=== PATIENT | female | born 1960 | race Caucasian/White ===

== ENCOUNTER 2016-07-19 16:24 | Outpatient (CLI) | END 2016-07-19 16:25 | disposition home or self-care (01) ==

== ENCOUNTER 2016-08-05 09:12 | Outpatient (CLI) | payer OTHER, MEDICAID | END 2016-08-05 09:13 | disposition home or self-care (01) | DX: Z80.3 Family history of malignant neoplasm of breast (principal); Z90.710 Acquired absence of both cervix and uterus ==

== ENCOUNTER 2016-08-15 09:44 | Outpatient (CLI) | payer OTHER, MEDICAID | END 2016-08-15 09:45 | disposition home or self-care (01) | DX: Z01.818 Encounter for other preprocedural examination (principal); N39.3 Stress incontinence (female) (male); N81.11 Cystocele, midline ==

== ENCOUNTER 2016-08-17 08:00 | Day surgery (SDC) | payer OTHER, MEDICAID ==
[2016-08-17] MEDS ORDERED: ceFAZolin 2 GM/50 ML 50 ML IV ONE (08:04)
[2016-08-17] MEDS ORDERED: LACTATED RINGERS 1,000 ML IV ONE ×2 (09:01→15:16)
[2016-08-17] MEDS ORDERED: KETAMINE 500 MG/10 ML VIAL IVP ONE (14:10)
[2016-08-17] MEDS ORDERED: LIDOCAINE-MPF 2% 5 ML VIAL IM ONE (14:10)
[2016-08-17] MEDS ORDERED: ONDANSETRON 4 MG/2 ML VIAL IVP ONE (14:10)
[2016-08-17] MEDS ORDERED: PROPOFOL 200 MG/20 ML VIAL IVP ONE (14:10)
[2016-08-17] MEDS ORDERED: DEXAMETHASONE 4 MG/ML VIAL IVP ONE (14:10)
[2016-08-17] MEDS ORDERED: ePHEDrine 50 MG/ML AMP IVP ONE (14:10)
[2016-08-17] MEDS ORDERED: ALBUTEROL 6.7 GM INHALER INH ONE (14:10)
[2016-08-17] MEDS ORDERED: fentaNYL 100 MCG/2 ML VIAL IVP ONE (14:10)
[2016-08-17] MEDS ORDERED: KETOROLAC 30 MG/ML VIAL IVP ONE (14:10)
[2016-08-17] MEDS ORDERED: BUPIVACAINE 0.25%-EPI 1:200000 PF 30 ML VIAL SUBQ ONE ×2 (14:20)
[2016-08-17] MEDS ORDERED: ACETAMINOPHEN 1,000 MG/100 ML 100 ML IV ONE (15:27)
[2016-08-17] MEDS: fentaNYL 100 MCG/2 ML VIAL ONE ×2 (15:40→15:55)
[2016-08-17] MEDS ORDERED: oxyCOD/ACETAMIN 5 MG/325 MG TABLET PO ONE (16:17)
== END 2016-08-17 08:01 | disposition home or self-care (01) ==
PROC: 0JQC0ZZ Repair Pelvic Region Subcutaneous Tissue and Fascia, Open Approach (ICD-10-PCS; principal; 2016-08-17 09:00)
DX: N39.3 Stress incontinence (female) (male) (principal); N81.11 Cystocele, midline; N81.5 Vaginal enterocele; Z78.0 Asymptomatic menopausal state; F17.210 Nicotine dependence, cigarettes, uncomplicated
CPT/HCPCS: 57240; A9270; J0131; J0690; J7120; J7613

== ENCOUNTER 2016-09-11 | Emergency (ER) | payer OTHER, MEDICAID | END 2016-09-12 00:17 | disposition home or self-care (01) ==

== ENCOUNTER 2016-09-11 | Outpatient (CLI) | payer OTHER, MEDICAID | END 2016-09-11 23:19 | disposition critical access hospital (66) | CPT/HCPCS: A0425; A0429 ==

== ENCOUNTER 2016-09-12 | Outpatient (CLI) | payer OTHER, MEDICAID | END 2016-09-12 14:21 | disposition critical access hospital (66) | DX: Z72.89 Other problems related to lifestyle (principal) | CPT/HCPCS: A0425; A0427 ==

== ENCOUNTER 2016-09-12 14:27 | Emergency (ER) | payer OTHER, MEDICAID ==
[2016-09-12] MEDS ORDERED: diazePAM 5 MG TABLET PO ONE (21:25)
[2016-09-12] MEDS: diazePAM 5 MG TABLET PO PRN (21:28)
[2016-09-13] MEDS ORDERED: ESCITALOPRAM 10 MG TABLET PO STA (01:33)
[2016-09-13] MEDS ORDERED: DIVALPROEX DR 125 MG TABLET PO STA (01:33)
[2016-09-13] MEDS ORDERED: diazePAM 5 MG TABLET PO ONE ×3 (01:35→11:17)
[2016-09-13] MEDS: diazePAM 5 MG TABLET PO PRN ×2 (01:38→08:17)
[2016-09-13] MEDS ORDERED: ACETAMINOPHEN 500 MG TABLET PO STA (07:27)
[2016-09-13] MEDS ORDERED: ACETAMINOPHEN 500 MG TABLET PO ONE (07:49)
[2016-09-13] MEDS ORDERED: FOLIC ACID INJ 1 MG, THIAMINE INJ 100 MG, MAGNESIUM SULFATE 2 GM, MULTIVITAMIN 10 ML in... IV STA ×10 (09:48→10:00)
[2016-09-13] MEDS ORDERED: diazePAM 5 MG TABLET PO STA (11:17)
== END 2016-09-13 11:30 ==
DX: F10.129 Alcohol abuse with intoxication, unspecified (principal); R45.851 Suicidal ideations; F17.200 Nicotine dependence, unspecified, uncomplicated; Y90.8 Blood alcohol level of 240 mg/100 ml or more; R03.0 Elevated blood-pressure reading, without diagnosis of hypertension
CPT/HCPCS: 36415; 80053; 80306; 80320; 81001; 83690; 85025; 96374; 99284; 99285; A9270; J3411

== ENCOUNTER 2016-10-26 15:50 | Emergency (ER) | payer OTHER, MEDICAID ==
[2016-10-26] MEDS ORDERED: ACETAMINOPHEN 325 MG TABLET PO STA (16:53)
[2016-10-26] MEDS ORDERED: ACETAMINOPHEN 325 MG TABLET PO ONE (16:56)
== END 2016-10-26 18:02 | disposition home or self-care (01) ==
DX: S46.912A Strain of unspecified muscle, fascia and tendon at shoulder and upper arm level, left arm, initial encounter (principal); W01.0XXA Fall on same level from slipping, tripping and stumbling without subsequent striking against object, initial encounter; Y92.89 Other specified places as the place of occurrence of the external cause; Y99.0 Civilian activity done for income or pay; E03.9 Hypothyroidism, unspecified; F17.200 Nicotine dependence, unspecified, uncomplicated
CPT/HCPCS: 73060; 99283; A9270

== ENCOUNTER 2016-12-07 17:34 | Emergency (ER) | payer OTHER, MEDICAID ==
[2016-12-07] MEDS ORDERED: LOPERAMIDE 2 MG CAPSULE PO STA (18:05)
[2016-12-07] MEDS ORDERED: SODIUM CHLORIDE 0.9% 1,000 ML IV ONE (18:05)
[2016-12-07] MEDS ORDERED: ONDANSETRON 4 MG/2 ML VIAL IVP STA (18:05)
--- NOTE | 2016-12-07 18:06 | ED Physician Documentation ---
History of Present Illness - Stated complaint Stated Complaint: FLU LIKE SYMPTOMS - Chief complaint Chief Complaint: General - History obtained from History obtained from: Patient - History of Present Illness Timing: Other (2 days of nausea, vomiting, diarrhea. Some body aches but no fevers or chills. No focal abdominal pain but feels "sick" she has a gastric bypass in the past.) Review of Systems Constitutional: reports: Myalgias, Fatigue. denies: Fever, Chills Nose: denies: Rhinorrhea / runny nose, Congestion Cardiac: denies: Chest pain / pressure, Palpitations Respiratory: denies: Dyspnea, Cough PD PAST MEDICAL HISTORY - Past Medical History Cardiovascular: None Respiratory: None Neuro: None Endocrine/Autoimmune: HyPOthyroidism GI: None BLENDING COORDINATOR: None : None HEENT: None Psych: Other Musculoskeletal: None Derm: None - Past Surgical History Past Surgical History: Yes General: Other Ortho: Other /BLENDING COORDINATOR: Hysterectomy, Breast reduction HEENT: Tonsil/Adenoidectomy - Present Medications Home Medications: Ambulatory Orders Medication Instructions Recorded Confirmed Divalproex Sodium [Depakote] 750 mg PO BID 11/20/15 08/17/16 Escitalopram [Lexapro] 10 mg PO DAILY 11/20/15 08/17/16 Levothyroxine [Synthroid] 175 mcg PO DAILY 11/20/15 08/17/16 Gabapentin 300 mg PO BID 03/30/16 08/17/16 Ziprasidone HCl [Geodon] 40 mg PO BID 03/30/16 08/17/16 Naltrexone HCl 50 mg PO DAILY 08/15/16 08/17/16 Lorazepam [Ativan] 1 mg PO Q8H PRN #12 tablet 09/12/16 Ondansetron Odt [Zofran] 4 mg TL Q6H PRN #15 tablet 09/12/16 HYDROcod/ACETAM 5/325 [[place] 5/325] 1 - 2 ea PO Q6H PRN #15 tablet 10/26/16 Loperamide [Imodium] 2 mg PO QID PRN #10 capsule 12/07/16 Lorazepam [Ativan] 1 mg PO TID PRN #15 tablet 12/07/16 Ondansetron HCl [Zofran] 4 mg PO Q6H PRN #10 tablet 12/07/16 - Allergies Allergies/Adverse Reactions: Allergies Allergy/AdvReac Type Severity Reaction Status Date / Time No Known Drug Allergies Allergy Verified 09/12/16 14:36 - Social History Does the pt smoke?: Yes Smoking Status: Current every day smoker Does the pt drink ETOH?: Yes Does the pt have substance abuse?: No - Immunizations Immunizations are current?: Yes - POLST Patient has POLST: No PD ED PE NORMAL - Vitals Vital signs reviewed: Yes - General General: Alert and oriented X 3, No acute distress - HEENT HEENT: PERRL, Other (dry mucous membranes) - Cardiac Cardiac: RRR, No murmur - Respiratory Respiratory: No respiratory distress, Clear bilaterally - Abdomen Abdomen: Soft, Non tender - Neuro Neuro: Alert and oriented X 3, Normal speech - Psych Psych: Normal mood, Normal affect Results - Vitals Vitals: Vital Signs - 24 hr 12/07/16 12/07/16 17:48 19:07 Temperature 36.1 C L 36.0 C L Heart Rate 90 78 Respiratory 16 15 Rate Blood Pressure 129/83 H 108/59 L O2 Saturation 94 95 Oxygen O2 Source Room air - Labs Labs: Laboratory Tests 12/07/16 12/07/16 12/07/16 18:15 18:15 18:15 Sodium 137 Potassium 4.2 Chloride 95 L Carbon Dioxide 25 Anion Gap 17.0 H BUN 9 Creatinine 0.6 Estimated GFR (MDRD) 103 Glucose 107 H Calcium 8.9 Total Bilirubin 0.4 AST 120 H ALT 86 H Alkaline Phosphatase 108 Total Protein 7.7 Albumin 4.0 Globulin 3.7 Albumin/Globulin Ratio 1.1 Lipase 25 Last Dose Date UNK Last Dose Time UNK Valproic Acid 10.6 Ethyl Alcohol 257.9 PD MEDICAL DECISION MAKING - ED course ED course: 48-year-old woman with what sounds like gastroenteritis, noted to have elevated liver enzymes and found to be significantly intoxicated as well without clinical evidence of intoxication. Counseled at length to quit drinking. Departure - Departure Disposition: 01 Home, Self Care Clinical Impression: Gastroenteritis Alcoholic intoxication Qualifiers: Complication of substance-induced condition: uncomplicated Qualified Code(s): F10.120 - Alcohol abuse with intoxication, uncomplicated Condition: Good Record reviewed to determine appropriate education?: Yes Instructions: ED Alcohol Intoxication, ED Gastroenteritis Viral Prescriptions: Lorazepam [Ativan] 1 mg PO TID PRN #15 tablet PRN Reason: Anxiety Loperamide [Imodium] 2 mg PO QID PRN #10 capsule PRN Reason: Diarrhea Ondansetron HCl [Zofran] 4 mg PO Q6H PRN #10 tablet PRN Reason: Nausea / Vomiting Comments: Call your doctor to arrange a follow up appointment. Make the next available appointment. In the interim return anytime if worse or if new symptoms develop. Forms: Activity restrictions
[2016-12-07] MEDS ORDERED: LOPERAMIDE 2 MG CAPSULE PO ONE (18:10)
[2016-12-07] MEDS ORDERED: ONDANSETRON 4 MG/2 ML VIAL ONE (18:10)
[2016-12-07 18:36] LABS: ALBUMIN/GLOBULIN RATIO 1.1 (1.0-2.2); BILIRUBIN,TOTAL 0.4 mg/dL (0.2-1.0); CALCIUM 8.9 mg/dL (8.5-10.3); CREATININE 0.6 mg/dL (0.4-1.0); POTASSIUM 4.2 mmol/L (3.5-5.0); TOTAL PROTEIN 7.7 g/dL (6.7-8.2)
[2016-12-07 19:58] VITALS: BP 118/69
== END 2016-12-07 20:01 | disposition home or self-care (01) ==
LOC: ED 17:34
DX: K52.9 Noninfective gastroenteritis and colitis, unspecified (principal); F10.129 Alcohol abuse with intoxication, unspecified; E03.9 Hypothyroidism, unspecified; F17.200 Nicotine dependence, unspecified, uncomplicated
CPT/HCPCS: 36415; 80053; 80164; 80320; 83690; 96361; 96374; 99283; A9270

== ENCOUNTER 2016-12-26 07:36 | Outpatient (CLI) | payer OTHER, MEDICAID ==
[2016-12-26 08:40] LABS: CHOL/HDL RATIO 2.1 (<4.4); CHOLESTEROL 193 mg/dL; HDL CHOLESTEROL 91 mg/dL; TRIGLYCERIDES 71 mg/dL; VLDL CHOLESTEROL 14 mg/dL
== END 2016-12-26 07:37 | disposition home or self-care (01) ==
LOC: LAB 07:36
PROVIDERS: ATTEND Psychiatry & Neurology Psychiatry
DX: F10.20 Alcohol dependence, uncomplicated (principal); F11.10 Opioid abuse, uncomplicated; F34.1 Dysthymic disorder; F34.9 Persistent mood [affective] disorder, unspecified
CPT/HCPCS: 36415; 80061; 80164; 80306; 84450; 84460

== ENCOUNTER 2017-01-20 07:38 | Outpatient (CLI) | payer OTHER ==
--- NOTE | 2017-01-21 19:30 | MRI Report ---
EXAM: LEFT SHOULDER MRI WITHOUT CONTRAST EXAM DATE: 01/20/2017 08:28 a.m. CLINICAL HISTORY: Left shoulder pain after a fall. COMPARISON: Left humerus radiography from 10/26/2016. TECHNIQUE: Multiplanar, multisequence T1-weighted and fluid-sensitive sequences of the shoulder witho ut contrast. Other: None. FINDINGS: Acromioclavicular Region: The acromion is type I. The acromioclavicular joint is unremarkable. The co racoacromial and coracoclavicular ligaments are intact. No subacromial/subdeltoid bursal fluid. Glenohumeral Region: No subluxation. Very small glenohumeral joint effusion. No loose bodies. The art icular cartilage is unremarkable. The glenohumeral ligaments and joint capsule are unremarkable. Bone Marrow: No fracture, marrow edema or bone lesions. Labrum: The labrum is unremarkable on this nonarthrographic study. Musculature/Rotator Cuff: There is supraspinatus tendinosis. The infraspinatus, teres minor, and subs capularis tendons are unremarkable. No discrete rotator cuff tear. No edema or fatty atrophy. Biceps Tendon: The long head of the biceps tendon and biceps kaylin are intact. Other: The subcutaneous tissues are unremarkable. IMPRESSION: 1. Supraspinatus tendinosis. No rotator cuff tear. 2. Very small glenohumeral joint effusion. [facility] MUSCULOSKELET[facility]IOLOGY SECTION Referring Provider Line: [phone] SITE ID: [id number]
== END 2017-01-20 07:39 | disposition home or self-care (01) ==
LOC: DI 07:38
PROVIDERS: ATTEND Orthopaedic Surgery
DX: M67.912 Unspecified disorder of synovium and tendon, left shoulder (principal); M25.412 Effusion, left shoulder

== ENCOUNTER 2017-05-31 10:34 | Outpatient (CLI) | payer OTHER ==
--- NOTE | 2017-06-05 16:29 | MRI Report ---
EXAM: MRI CERVICAL SPINE WITHOUT CONTRAST EXAM DATE: 05/31/2017 05:50 PM. CLINICAL HISTORY: Left shoulder and neck pain. COMPARISONS: MRI cervical spine from 04/01/2015. TECHNIQUE: Multiplanar, multisequence T1-weighted and fluid-sensitive sequences of the cervical spine without contrast. Other: None. FINDINGS: Neurologic Structures: The visualized posterior fossa structures are unremarkable. No signal abnormal ity in the visualized spinal cord. Alignment: Normal. No scoliosis or spondylolisthesis. Bone Marrow: No gross fractures or bone lesions. No marrow edema. Interspace Levels/Facets: The initial junction is unremarkable. C1-C2: Unremarkable. C2-C3: Minimal facet arthropathy. No stenoses. No change. C3-C4: Mild facet arthropathy. No stenoses. No change. C4-C5: Tiny posterior central disk protrusion. Right-sided uncovertebral joint osteophytes. Mild righ t facet arthropathy. Mild right foraminal stenosis. C5-C6: Small disk bulge/osteophyte complex. Bilateral uncovertebral joint osteophytes. Mild canal sergio nosis. Mild left facet arthropathy. Mild left and mild to moderate right foraminal stenoses. No neri e. C6-C7: Small to moderate-sized posterior central disk extrusion. The disk extrusion extends inferiorl y to the mid C7 level. Mild canal stenosis. Mild left foraminal stenosis. No change. C7-T1: Mild right foraminal stenosis. Musculature: Normal. No edema or fatty atrophy. Other: The paravertebral and prevertebral soft tissues are normal. IMPRESSION: 1. Mild multilevel degenerative disk changes and facet arthropathy. The more significant levels are C 6-C7 and C5-C6. 2. Small disk bulge/osteophyte complex at C5-C6. Mild canal stenosis. Mild left and mild to moderate right foraminal stenoses. No change. 3. Small to moderate-sized posterior central disk extrusion at C6-C7. Mild canal and left foraminal s tenoses. No change. [facility] Referring Provider Line: [phone] SITE ID: [id number]
== END 2017-05-31 10:35 | disposition home or self-care (01) ==
LOC: DI 10:34
PROVIDERS: ATTEND Orthopaedic Surgery
DX: M47.892 Other spondylosis, cervical region (principal); M50.30 Other cervical disc degeneration, unspecified cervical region; M50.221 Other cervical disc displacement at C4-C5 level
CPT/HCPCS: 72141

== ENCOUNTER 2017-07-15 08:49 | Outpatient (CLI) | payer OTHER | END 2017-07-15 08:50 | disposition critical access hospital (66) | LOC: EMS 08:49 | PROVIDERS: ATTEND Surgery | DX: R51 Headache (principal); W10.9XXA Fall (on) (from) unspecified stairs and steps, initial encounter; Y92.039 Unspecified place in apartment as the place of occurrence of the external cause | CPT/HCPCS: A0425; A0429 ==

== ENCOUNTER 2017-07-15 09:07 | Emergency (ER) | payer OTHER ==
--- NOTE | 2017-07-15 09:26 | ED Physician Documentation ---
History of Present Illness - Stated complaint Stated Complaint: FELL DOWN 12 STAIRS, LOC, LETHARGY - Chief complaint Chief Complaint: Trauma Ch/Bk - Additonal information Additional information: hx from pt 56 femakle states in good health, woke up this AM feeling fine, had coffee, went out to smoke, watched TV etc was on her way out to meet friends for breakfast and awoke at the bottom of her stairs per EMS neighbor heard her thump down the stairs and found her unconscious and called 911 per EMS she was groggy/lethargic at first but now doing better pt does not know if she stumbled fell hit head then had LOC or had LOC then fell she has a frontal WALSH no neck pain no CP palp no abd pain NVD no ext pain only new med is meloxicam which has not been causing GI upset bloody BM etc Review of Systems Constitutional: denies: Fever Throat: denies: Sore throat Cardiac: denies: Chest pain / pressure, Palpitations Respiratory: denies: Dyspnea, Cough GI: denies: Abdominal Pain, Nausea, Vomiting Musculoskeletal: denies: Neck pain, Extremity pain Neurologic: reports: Syncope, Headache, Head injury. denies: Focal weakness, Numbness Endocrine: denies: Easy bruising / bleeding Immunocompromised: denies: Immunocompromised PD PAST MEDICAL HISTORY - Past Medical History Cardiovascular: None Respiratory: None Neuro: None Endocrine/Autoimmune: HyPOthyroidism GI: None PRODUCT SAFETY OFFICER: None : None HEENT: None Psych: Other Musculoskeletal: None Derm: None - Past Surgical History Past Surgical History: Yes General: Other Ortho: Other /PRODUCT SAFETY OFFICER: Hysterectomy, Breast reduction HEENT: Tonsil/Adenoidectomy - Present Medications Home Medications: Ambulatory Orders Medication Instructions Recorded Confirmed Divalproex Sodium [Depakote] 750 mg PO BID 11/20/15 07/15/17 Escitalopram [Lexapro] 20 mg PO DAILY 11/20/15 07/15/17 Levothyroxine [Synthroid] 0.175 mcg PO DAILY 11/20/15 07/15/17 Gabapentin 300 mg PO BID 03/30/16 07/15/17 Naltrexone HCl 50 mg PO DAILY 08/15/16 07/15/17 Disulfiram [Antabuse] 1 mg PO DAILY 07/15/17 07/15/17 - Allergies Allergies/Adverse Reactions: Allergies Allergy/AdvReac Type Severity Reaction Status Date / Time No Known Drug Allergies Allergy Verified 07/15/17 09:17 - Social History Does the pt smoke?: Yes Smoking Status: Current every day smoker Does the pt drink ETOH?: Yes Does the pt have substance abuse?: No - Immunizations Immunizations are current?: Yes - POLST Patient has POLST: No PD ED PE NORMAL - Vitals Vital signs reviewed: Yes - General General: Alert and oriented X 3 - HEENT HEENT: Atraumatic (has a WALSH but no visible swelling or bruising), PERRL, EOMI, Ears normal (no hemotympanum or kaur sign) - Neck Neck: No bony TTP (will image 2/2 mechansim) - Cardiac Cardiac: RRR - Respiratory Respiratory: No respiratory distress, Clear bilaterally - Abdomen Abdomen: Soft, Non tender - Back Back: No spinal TTP - Extremities Extremities: No deformity, No tenderness to palpate - Neuro Neuro: Alert and oriented X 3, 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, No motor deficit, No sensory deficit Eye Opening: Spontaneous Motor: Obeys Commands Verbal: Oriented GCS Score: 15 Results - Vitals Vitals: Vital Signs - 24 hr 07/15/17 07/15/17 07/15/17 09:05 10:18 11:32 Temperature 36.3 C L Heart Rate 51 L 46 L 46 L Respiratory 15 14 16 Rate Blood Pressure 147/105 H 153/80 H 154/77 H O2 Saturation 99 100 97 07/15/17 12:15 Temperature Heart Rate 50 L Respiratory 14 Rate Blood Pressure 134/93 H O2 Saturation 99 Oxygen O2 Source Room air - EKG (time done) 0954 Rate: Rate (enter#) (46) Rhythm: Sinus bradycardia Intervals: Normal CT QRS: Normal Ischemia: Normal ST segments - Labs Labs: Laboratory Tests 07/15/17 07/15/17 07/15/17 09:29 09:29 09:29 WBC 5.3 RBC 4.60 Hgb 14.5 Hct 42.3 MCV 91.9 MCH 31.4 H MCHC 34.2 RDW 14.0 Plt Count 153 MPV 9.0 Neut # 3.1 Lymph # 1.6 Eagle # 0.5 Eos # 0.1 Baso # 0.1 Absolute Nucleated RBC 0.00 Nucleated RBC % 0.0 Sodium 139 Potassium 4.5 Chloride 102 Carbon Dioxide 28 Anion Gap 9.0 BUN 11 Creatinine 0.7 Estimated GFR (MDRD) 86 L Glucose 104 H Calcium 9.1 Urine Color Urine Clarity Urine pH Ur Specific [place] Urine Protein Urine Glucose (UA) Urine Ketones Urine Occult Blood Urine Nitrite Urine Bilirubin Urine Urobilinogen Ur Leukocyte Esterase Urine RBC Urine WBC Ur Squamous Epith Cells Urine Bacteria Ur Microscopic Review Urine Culture Comments Ethyl Alcohol < 5.0 07/15/17 10:02 WBC RBC Hgb Hct MCV MCH MCHC RDW Plt Count MPV Neut # Lymph # Eagle # Eos # Baso # Absolute Nucleated RBC Nucleated RBC % Sodium Potassium Chloride Carbon Dioxide Anion Gap BUN Creatinine Estimated GFR (MDRD) Glucose Calcium Urine Color YELLOW Urine Clarity HAZY Urine pH 7.0 Ur Specific [place] 1.015 Urine Protein NEGATIVE Urine Glucose (UA) NEGATIVE Urine Ketones NEGATIVE Urine Occult Blood NEGATIVE Urine Nitrite POSITIVE H Urine Bilirubin NEGATIVE Urine Urobilinogen 0.2 (NORMAL) Ur Leukocyte Esterase NEGATIVE Urine RBC None Seen Urine WBC 6-10 H Ur Squamous Epith Cells RARE Squamous Urine Bacteria Many H Ur Microscopic Review INDICATED Urine Culture Comments INDICATED Ethyl Alcohol - Rads (name of study) [facility] Radiology: See rad report (acute kory SAH no skull fx) [facility] Radiology: See rad report (no fx) PD MEDICAL DECISION MAKING - ED course ED course: kory SAH on CT and bradycardia which pt states is atypical for her + fall down stairs unclear still if pt had syncope (2/2 either spont SAH or jaelyn) then fall - or if she fell and hit head suffering SAH which is now casuing HTN and bradycardia will need transfer to tertiary care facility for further eval and management d/w [facility] and [facility] accept - will transfer by [facility] if flying also UTI txed with rocephin pt and family updated hx EtOH now on antabuse and sober X 7 m per pt - while in ER started having vis hallucinations so gave ativan and added on BA to initial blood draw (was neg) Departure - Departure Disposition: 02 Transfer Acute Care Hosp Clinical Impression: SAH (subarachnoid hemorrhage), Fall (on) (from) other stairs and steps, initial encounter, Bradycardia UTI (urinary tract infection) Qualifiers: Urinary tract infection type: acute cystitis Hematuria presence: without hematuria Qualified Code(s): N30.00 - Acute cystitis without hematuria Syncope Qualifiers: Syncope type: unspecified Qualified Code(s): R55 - Syncope and collapse Condition: Serious Discharge Date/Time: 07/15/17 12:27
[2017-07-15 09:32] LABS: BASOPHILS # (AUTO) 0.1 10^3/uL (0.0-0.1); BASOPHILS % (AUTO) 1.1 %; EOSINOPHILS # (AUTO) 0.1 10^3/uL (0.0-0.7); EOSINOPHILS % (AUTO) 1.9 %; HGB - HEMOGLOBIN 14.5 g/dL (12.0-16.0); LYMPHOCYTES # (AUTO) 1.6 10^3/uL (1.5-3.5); LYMPHOCYTES % (AUTO) 29.3 %; MEAN CORPUSCULAR HEMOGLOBIN 31.4 pg (27.0-31.0); MEAN CORPUSCULAR HGB CONC 34.2 g/dL (32.0-36.0); MEAN CORPUSCULAR VOLUME 91.9 fL (81.0-99.0); MONOCYTES # (AUTO) 0.5 10^3/uL (0.0-1.0); MONOCYTES % (AUTO) 9.2 %; NEUTROPHILS # (AUTO) 3.1 10^3/uL (1.5-6.6); NEUTROPHILS % (AUTO) 58.5 %; PLT - PLATELET COUNT 153 10^3/uL (130-450); WHITE BLOOD COUNT 5.3 x10^3/uL (4.8-10.8)
[2017-07-15 09:41] LABS: CALCIUM 9.1 mg/dL (8.5-10.3); CREATININE 0.7 mg/dL (0.4-1.0)
[2017-07-15] MEDS ORDERED: ACETAMINOPHEN 1,000 MG/100 ML 100 ML IV STA (10:01)
[2017-07-15 10:11] LABS: BILIRUBIN,URINE NEGATIVE (NEGATIVE); CLARITY,URINE HAZY (CLEAR); GLUCOSE, URINE (UA) NEGATIVE (NEGATIVE); KETONES,URINE (UA) NEGATIVE (NEGATIVE); LEUKOCYTE ESTERASE, URINE NEGATIVE (NEGATIVE); NITRITE,URINE POSITIVE (NEGATIVE); OCCULT BLOOD,URINE NEGATIVE (NEGATIVE); PROTEIN,URINE NEGATIVE (NEGATIVE); UROBILINOGEN,URINE 0.2 (NORMAL) E.U./dL (NORMAL)
[2017-07-15 10:17] LABS: BACTERIA,URINE Many /HPF (None Seen); RBC,URINE None Seen /HPF (0-5); SQUAMOUS EPITHELIAL CELL,UR RARE Squamous (<= Few)
[2017-07-15] MEDS ORDERED: cephALEXin 250 MG CAPSULE PO STA (10:21)
[2017-07-15] MEDS ORDERED: cefTRIAXone 1 GM in SODIUM CHLORIDE 0.9% MINIBAG 100 ML IV STA (10:40)
--- NOTE | 2017-07-15 10:41 | CT Report ---
EXAM: CT HEAD EXAM DATE: 07/15/2017 09:50 AM. CLINICAL HISTORY: Fall down stairs with loss of consciousness and headache. COMPARISON: Head CT 04/30/2009. TECHNIQUE: Multiaxial CT images were obtained from the foramen magnum to the vertex. Reformats: Coron al. IV contrast: None. In accordance with CT protocol optimization, one or more of the following dose reduction techniques w ere utilized for this exam: automated exposure control, adjustment of mA and/or KV based on patient s ize, or use of iterative reconstructive technique. FINDINGS: Parenchyma: No intraparenchymal hemorrhage. No evidence of mass, midline shift, or CT findings of inf arction. Otto-white differentiation is distinct. Mild diffuse age related cortical volume loss. Extraaxial Spaces: Left central sulcus and bilateral postcentral sulcus subarachnoid hemorrhage. No subdural or epidural collections identified. Ventricles: Normal in size and position. Sinuses and Orbits: Imaged paranasal sinuses, orbits, and mastoids show no significant abnormality. Bones: No evidence of fracture or calvarial defect. Other: None. IMPRESSION: 1. Acute bilateral subarachnoid hemorrhage. 2. No depressed calvarial fracture. CRITICAL RESULT: The findings were discussed with Dr. Pillai on day of exam at 10:34 AM. [facility] Referring Provider Line: [phone] SITE ID: [id number]
--- NOTE | 2017-07-15 10:43 | CT Report ---
EXAM: CT CERVICAL SPINE WITHOUT CONTRAST DATE: 07/15/2017 09:51 AM. HISTORY: Fall down stairs hit head. Loss of consciousness. COMPARISONS: None. TECHNIQUE: Thin-section axial images were acquired of the cervical spine without contrast. Post-proce ssing: Coronal and sagittal reformats. Other: None. In accordance with CT protocol optimization, one or more of the following dose reduction techniques w ere utilized for this exam: automated exposure control, adjustment of mA and/or KV based on patient s ize, or use of iterative reconstructive technique. FINDINGS: Alignment: No scoliosis or spondylolisthesis. Bones: No fracture or bone lesion. Interspace Levels/Facets: C1-C2: Unremarkable. C2-C3: Unremarkable. C3-C4: Unremarkable. C4-C5: Unremarkable. C5-C6: Mild loss of disk space height. Mild right uncovertebral joint hypertrophy. C6-C7: Unremarkable. C7-T1: Unremarkable. Musculature: Normal. No fatty atrophy. Other: The paravertebral and prevertebral soft tissues are unremarkable. The lung apices are clear. IMPRESSION: 1. No cervical spine fracture. 2. Early degenerative changes at C5-C6 level. [facility] Referring Provider Line: [phone] SITE ID: [id number]
[2017-07-15] MEDS ORDERED: LORazepam 2 MG/ML VIAL IVP STA (12:04)
[2017-07-15 12:16] VITALS: BP 134/93
== END 2017-07-15 12:27 | disposition short-term general hospital (02) ==
LOC: EDUNIT# → ED 09:07
DX: I60.9 Nontraumatic subarachnoid hemorrhage, unspecified (principal); N30.00 Acute cystitis without hematuria; R55 Syncope and collapse; R00.1 Bradycardia, unspecified; R44.3 Hallucinations, unspecified; F17.200 Nicotine dependence, unspecified, uncomplicated; Z91.81 History of falling
CPT/HCPCS: 36415; 70450; 72125; 80048; 80320; 81001; 85025; 87077; 87086; 87181; 93005; 96365; 96368; 96375; 99284; J0131; J2060; 81003; 99285

== ENCOUNTER 2017-09-03 20:15 | Outpatient (CLI) | payer OTHER | END 2017-09-03 20:16 | disposition critical access hospital (66) | LOC: EMS 20:15 | PROVIDERS: ATTEND Surgery | DX: R55 Syncope and collapse (principal); S09.90XA Unspecified injury of head, initial encounter; W07.XXXA Fall from chair, initial encounter; W22.8XXA Striking against or struck by other objects, initial encounter; Y92.89 Other specified places as the place of occurrence of the external cause | CPT/HCPCS: A0425; A0429 ==

== ENCOUNTER 2017-09-03 20:26 | Emergency (ER) | payer OTHER ==
[2017-09-03] MEDS ORDERED: ACETAMINOPHEN 325 MG TABLET PO STA (20:40)
[2017-09-03] MEDS ORDERED: SODIUM CHLORIDE 0.9% 1,000 ML IV ONE (20:40)
[2017-09-03 20:58] LABS: BASOPHILS # (AUTO) 0.1 10^3/uL (0.0-0.1); BASOPHILS % (AUTO) 0.7 %; EOSINOPHILS # (AUTO) 0.1 10^3/uL (0.0-0.7); EOSINOPHILS % (AUTO) 0.5 %; HGB - HEMOGLOBIN 13.9 g/dL (12.0-16.0); LYMPHOCYTES % (AUTO) 7.6 %; MEAN CORPUSCULAR HEMOGLOBIN 30.1 pg (27.0-31.0); MEAN CORPUSCULAR HGB CONC 32.9 g/dL (32.0-36.0); MEAN CORPUSCULAR VOLUME 91.5 fL (81.0-99.0); MEAN PLATELET VOLUME 8.3 fL (7.9-10.8); MONOCYTES # (AUTO) 0.7 10^3/uL (0.0-1.0); MONOCYTES % (AUTO) 5.3 %; NEUTROPHILS # (AUTO) 11.2 10^3/uL (1.5-6.6); NEUTROPHILS % (AUTO) 85.9 %; PLT - PLATELET COUNT 222 10^3/uL (130-450); RED BLOOD COUNT 4.62 10^6/uL (4.20-5.40); RED CELL DISTRIBUTION WIDTH 14.3 % (12.0-15.0)
[2017-09-03 21:07] LABS: ALBUMIN 4.1 g/dL (3.2-5.5); ALBUMIN/GLOBULIN RATIO 1.4 (1.0-2.2); BILIRUBIN,TOTAL 0.9 mg/dL (0.2-1.0); CALCIUM 9.1 mg/dL (8.5-10.3); CREATININE 0.7 mg/dL (0.4-1.0)
--- NOTE | 2017-09-03 21:08 | ED Physician Documentation ---
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 She was sitting in a chair at the time and fell, hitting her forehead on the floor. She immediately regained consciousness, and there was no evidence of seizure activity or urinary incontinence. She denies associated chest pain, shortness of breath, nausea or vomiting. She currently reports frontal headache. For no particular reason she had not had her normal oral intake of fluids or meals today. The incident occurred just prior to the patient's turn to speak at the AA meeting. Past medical history is significant for subdural hemorrhage in June 2017 when the patient tripped and fell down a flight of stairs. She did not require surgical intervention at that time, and has fully recovered from that event. Review of Systems Constitutional: denies: Fever Eyes: denies: Decreased vision Ears: denies: Tinnitus/ringing Nose: denies: Congestion Throat: denies: Sore throat Cardiac: denies: Chest pain / pressure, Palpitations Respiratory: denies: Dyspnea, Cough GI: denies: Abdominal Pain, Nausea, Vomiting : denies: Dysuria, Incontinent Skin: reports: Abrasion (s) (Right forehead.). denies: Rash Musculoskeletal: denies: Neck pain, Back pain, Extremity pain Neurologic: reports: Headache (frontal), Head injury (forehead contusion/ abrasion.), LOC (brief). denies: Focal weakness, Numbness PD PAST MEDICAL HISTORY - Past Medical History Cardiovascular: None Respiratory: None Neuro: Other (subarachnoid hemorrhage 2 months ago.) Endocrine/Autoimmune: HyPOthyroidism GI: None FUR REPAIR INSPECTOR: None : None HEENT: None Psych: Depression Musculoskeletal: None Derm: None Other Past Medical History: SAH s/p fall down stairs. - Past Surgical History Past Surgical History: Yes General: Other Ortho: Other /FUR REPAIR INSPECTOR: Hysterectomy, Breast reduction HEENT: Tonsil/Adenoidectomy - Present Medications Home Medications: Ambulatory Orders Medication Instructions Recorded Confirmed Divalproex Sodium [Depakote] 750 mg PO BID 11/20/15 07/15/17 Escitalopram [Lexapro] 20 mg PO DAILY 11/20/15 07/15/17 Levothyroxine [Synthroid] 0.175 mcg PO DAILY 11/20/15 07/15/17 Gabapentin 300 mg PO BID 03/30/16 07/15/17 Naltrexone HCl 50 mg PO DAILY 08/15/16 07/15/17 Disulfiram [Antabuse] 1 mg PO DAILY 07/15/17 07/15/17 - Allergies Allergies/Adverse Reactions: Allergies Allergy/AdvReac Type Severity Reaction Status Date / Time No Known Drug Allergies Allergy Verified 09/03/17 20:35 - Social History Does the pt smoke?: Yes Smoking Status: Current every day smoker Does the pt drink ETOH?: Yes Does the pt have substance abuse?: No - Immunizations Immunizations are current?: Yes - POLST Patient has POLST: No PD ED PE NORMAL - Vitals Vital signs reviewed: Yes (normal) - General General: Alert and oriented X 3, Well developed/nourished - HEENT HEENT: PERRL, EOMI, Ears normal, Pharynx benign, Other (2-1/2 cm diameter superficial abrasion on the right side of the forehead. No bony step-off palpated.) - Neck Neck: No bony TTP, No adenopathy, No JVD, Other (Full cervical range of motion, without tenderness.) - Cardiac Cardiac: RRR, No murmur - Respiratory Respiratory: No respiratory distress, Clear bilaterally - Abdomen Abdomen: Soft, Non tender - Back Back: No spinal TTP - Derm Derm: No rash - Extremities Extremities: No deformity, No tenderness to palpate, Normal ROM s pain - Neuro Neuro: Alert and oriented X 3, No motor deficit, No sensory deficit, Normal speech Eye Opening: Spontaneous Motor: Obeys Commands Verbal: Oriented GCS Score: 15 Results - Vitals Vitals: Vital Signs - 24 hr 09/03/17 09/03/17 09/03/17 21:28 22:09 22:31 Heart Rate 69 66 66 Respiratory 15 20 20 Rate Blood Pressure 117/57 L 112/69 114/53 L O2 Saturation 92 95 96 Oxygen O2 Source Room air - EKG (time done) 20:37 Rate: Rate (enter#) (64) Rhythm: NSR [place]: Normal Intervals: Normal [place] QRS: Normal Ischemia: Normal ST segments Computer interpretation: Agree with computer - Labs Labs: Laboratory Tests 09/03/17 09/03/17 09/03/17 20:45 20:45 20:45 WBC 13.0 H RBC 4.62 Hgb 13.9 Hct 42.2 MCV 91.5 MCH 30.1 MCHC 32.9 RDW 14.3 Plt Count 222 MPV 8.3 Neut # 11.2 H Lymph # 1.0 L Butler # 0.7 Eos # 0.1 Baso # 0.1 Absolute Nucleated RBC 0.01 Nucleated RBC % 0.0 Sodium 137 Potassium 4.1 Chloride 102 Carbon Dioxide 26 Anion Gap 9.0 BUN 13 Creatinine 0.7 Estimated GFR (MDRD) 86 L Glucose 121 H Calcium 9.1 Total Bilirubin 0.9 AST 16 ALT 16 Alkaline Phosphatase 64 Troponin I < 0.04 Total Protein 7.0 Albumin 4.1 Globulin 2.9 Albumin/Globulin Ratio 1.4 Lipase 26 Urine Color Urine Clarity Urine pH Ur Specific [place] Urine Protein Urine Glucose (UA) Urine Ketones Urine Occult Blood Urine Nitrite Urine Bilirubin Urine Urobilinogen Ur Leukocyte Esterase Ur Microscopic Review Urine Culture Comments 09/03/17 21:00 WBC RBC Hgb Hct MCV MCH MCHC RDW Plt Count MPV Neut # Lymph # Butler # Eos # Baso # Absolute Nucleated RBC Nucleated RBC % Sodium Potassium Chloride Carbon Dioxide Anion Gap BUN Creatinine Estimated GFR (MDRD) Glucose Calcium Total Bilirubin AST ALT Alkaline Phosphatase Troponin I Total Protein Albumin Globulin Albumin/Globulin Ratio Lipase Urine Color YELLOW Urine Clarity CLEAR Urine pH 5.5 Ur Specific [place] >=1.030 H Urine Protein NEGATIVE Urine Glucose (UA) NEGATIVE Urine Ketones 15 H Urine Occult Blood NEGATIVE Urine Nitrite NEGATIVE Urine Bilirubin NEGATIVE Urine Urobilinogen 0.2 (NORMAL) Ur Leukocyte Esterase NEGATIVE Ur Microscopic Review NOT INDICATED Urine Culture Comments NOT INDICATED - Rads (name of study) Head CT Radiology: Prelim report reviewed, EMP read contemporaneously, See rad report ( No acute or focal intracranial abnormality seen.) PD MEDICAL DECISION MAKING - ED course Complexity details: reviewed old records, reviewed results, re-evaluated patient , considered differential, d/w patient ED course: The patient's presentation is most consistent with vasovagal syncope while at an AA meeting. Her presentation does not suggest seizure or cardiac etiology. Her examination reveals a forehead abrasion. Head CT reveals no evidence of intracranial abnormality. Electrocardiogram is normal, and she had no dysrhythmia on cardiac monitoring. Precipitating factors include poor oral intake of fluids today, as well as social stress anticipating speaking before the rest of the group at the AA meeting. Laboratory evidence of mild dehydration includes concentrated urine with specific gravity greater than 1.030. Treatment in the emergency department included administration of normal saline 1 L IV, acetaminophen 650 mg orally, and administration of tetanus booster. During her course in the emergency department, the patient demonstrated ability to ambulate without lightheadedness. At the time of discharge, I discussed with her the results of her workup, outpatient follow-up, as well as potentially worrisome signs or symptoms that should prompt reevaluation in the emergency department. Departure - Departure Disposition: 01 Home, Self Care Clinical Impression: Dehydration Syncope Qualifiers: Syncope type: vasovagal syncope Qualified Code(s): R55 - Syncope and collapse Forehead contusion Qualifiers: Encounter type: initial encounter Qualified Code(s): S00.83XA - Contusion of other part of head, initial encounter Condition: Stable Instructions: ED Dehydration, ED Syncope Vasovagal Follow-Up: Tatiana Wiggins ARNP [Credentialed Staff Provider] - Comments: Drink plenty of fluids. Follow up with your primary physician within 1-2 weeks. Return to the emergency department if you develop recurrent lightheadedness, dizziness, increasing headache, or otherwise worsening symptoms. Forms: Activity restrictions Discharge Date/Time: 09/03/17 22:36
[2017-09-03 21:17] LABS: BILIRUBIN,URINE NEGATIVE (NEGATIVE); GLUCOSE, URINE (UA) NEGATIVE (NEGATIVE); KETONES,URINE (UA) 15 mg/dL (NEGATIVE); LEUKOCYTE ESTERASE, URINE NEGATIVE (NEGATIVE); NITRITE,URINE NEGATIVE (NEGATIVE); OCCULT BLOOD,URINE NEGATIVE (NEGATIVE); PH,URINE 5.5 PH (5.0-7.5); PROTEIN,URINE NEGATIVE (NEGATIVE); UROBILINOGEN,URINE 0.2 (NORMAL) E.U./dL (NORMAL)
[2017-09-03 21:19] LABS: CLARITY,URINE CLEAR (CLEAR)
[2017-09-03] MEDS ORDERED: TETANUS/DIPHTHERIA/PERTUSSIS 0.5 ML SYRINGE IM ONE (21:22)
--- NOTE | 2017-09-03 21:26 | CT Report ---
EXAM: CT HEAD EXAM DATE: 09/03/2017 09:04 PM. CLINICAL HISTORY: Syncopal episode with head impact. Abrasion on right forehead. COMPARISON: Head CT 07/15/2017. TECHNIQUE: Multiaxial CT images were obtained from the foramen magnum to the vertex. Reformats: Coron al. IV contrast: None. In accordance with CT protocol optimization, one or more of the following dose reduction techniques w ere utilized for this exam: automated exposure control, adjustment of mA and/or KV based on patient s ize, or use of iterative reconstructive technique. FINDINGS: Parenchyma: No intraparenchymal hemorrhage. No evidence of mass, midline shift, or CT findings of inf arction. Otto-white differentiation is distinct. Extraaxial Spaces: Normal for age. No subdural or epidural collections identified. The previously seen bilateral subarachnoid hemorrhages have resolved. Ventricles: Normal in size and position. Sinuses and Orbits: Imaged paranasal sinuses, orbits, and mastoids show no significant abnormality. Bones: No evidence of fracture or calvarial defect. IMPRESSION: No acute or focal intracranial abnormality seen. [facility] Referring Provider Line: [phone] SITE ID: [id number]
[2017-09-03 22:32] VITALS: BP 114/53
== END 2017-09-03 22:36 | disposition home or self-care (01) ==
LOC: EDUNIT# → ED 20:26
DX: E86.0 Dehydration (principal); R55 Syncope and collapse; S00.83XA Contusion of other part of head, initial encounter; W07.XXXA Fall from chair, initial encounter; Y92.89 Other specified places as the place of occurrence of the external cause; Z23 Encounter for immunization; E03.9 Hypothyroidism, unspecified
CPT/HCPCS: 36415; 70450; 80053; 81003; 83690; 84484; 85025; 90471; 90715; 93005; 96360; 99284; A9270; 81001; 87086

== ENCOUNTER 2017-09-16 08:11 | Outpatient (CLI) | payer OTHER ==
[2017-09-16 09:03] LABS: ALT ALANINE AMINOTRANSFERASE 14 IU/L (10-60); AST ASPARTATE AMINOTRANSFERASE 16 IU/L (10-42)
== END 2017-09-16 08:12 | disposition home or self-care (01) ==
LOC: LAB 08:11
PROVIDERS: ATTEND Psychiatry & Neurology Psychiatry
DX: F10.20 Alcohol dependence, uncomplicated (principal); F11.10 Opioid abuse, uncomplicated; F34.1 Dysthymic disorder; F43.9 Reaction to severe stress, unspecified; G47.00 Insomnia, unspecified
CPT/HCPCS: 36415; 84450; 84460

== ENCOUNTER 2017-09-19 08:03 | Outpatient (CLI) | payer OTHER | END 2017-09-19 08:04 | disposition home or self-care (01) | LOC: LAB 08:03 | PROVIDERS: ATTEND Psychiatry & Neurology Psychiatry | DX: F10.20 Alcohol dependence, uncomplicated (principal); F11.10 Opioid abuse, uncomplicated; F34.1 Dysthymic disorder; F43.9 Reaction to severe stress, unspecified; G47.00 Insomnia, unspecified | CPT/HCPCS: 80164 ==

== ENCOUNTER 2017-11-21 11:02 | Day surgery (SDC) | payer OTHER ==
[~2017-11-21 11:02] MED LIST: DEXAMETHASONE 4 MG/ML VIAL ONE; LACTATED RINGERS 1,000 ML IV ONE; MIDAZOLAM 2 MG/2 ML VIAL ONE; ROPIVACAINE 0.5% PF 20 ML AMPULE ONE; ceFAZolin 2 GM/50 ML 2 GM/50 ML BAG IV ONE
[2017-11-21] MEDS ORDERED: fentaNYL 100 MCG/2 ML VIAL IVP ONE (13:00)
[2017-11-21] MEDS ORDERED: KETOROLAC 30 MG/ML VIAL IVP ONE (13:00)
[2017-11-21] MEDS ORDERED: SUCCINYLCHOLINE 200 MG/10 ML VIAL IVP ONE (13:00)
[2017-11-21] MEDS ORDERED: PROPOFOL 200 MG/20 ML VIAL IVP ONE (13:00)
[2017-11-21] MEDS ORDERED: MIDAZOLAM 2 MG/2 ML VIAL IVP ONE (13:00)
[2017-11-21] MEDS ORDERED: LIDOCAINE-MPF 2% 5 ML VIAL IM ONE (13:00)
[2017-11-21] MEDS ORDERED: ROCURONIUM 50 MG/5 ML VIAL IVP ONE (13:00)
[2017-11-21] MEDS ORDERED: ONDANSETRON 4 MG/2 ML VIAL IVP ONE (13:00)
[2017-11-21] MEDS ORDERED: LACTATED RINGERS 1,000 ML IV ONE (13:00)
[2017-11-21] MEDS ORDERED: DEXAMETHASONE 4 MG/ML VIAL IVP ONE (13:00)
[2017-11-21] MEDS ORDERED: HYDROcod/ACETAM 5/325 MG TABLET ONE (16:11)
[2017-11-21 17:00] VITALS: BP 121/74
--- NOTE | 2017-11-21 18:46 | OPERATIVE REPORT ---
DATE OF SERVICE: 11/21/2017 Physician: Harris Lozada MD PREOPERATIVE DIAGNOSIS: Left shoulder impingement syndrome with suspected tear of the biceps tendon, possible labral tear, and bursitis. POSTOPERATIVE DIAGNOSIS: Left shoulder subacromial impingement with bursitis and posterosuperior labral tear. NAME OF PROCEDURE 1. Left shoulder exam under anesthesia. 2. Arthroscopy. 3. Debridement of posterosuperior labral tear. 4. Subacromial decompression. 5. Bursectomy. SURGEON: Harris Lozada MD ANESTHESIA: General and interscalene block. INDICATIONS FOR SURGERY: Patient is a 57-year-old female with progressive left shoulder pain after an injury of her shoulder at work. Patient has persistent shoulder pain in spite of nonoperative management. On MRI, there is suspicion of labral injury and possible biceps tear. Recommendation is that patient undergo arthroscopic treatment with possible tenodesis of biceps tendon, bursectomy, labral tear debridement and decompression. FINDINGS AT SURGERY: Patient's exam under anesthesia was completely normal, except for a very mild limitation in full forward elevation. At arthroscopic exam, patient's shoulder showed a slight amount of synovial hypertrophy, more in the anterior shoulder and around the labral tear posterosuperior. The labral tear was a small flap tear of the labrum just posterior to the biceps insertion. The biceps tendon was normal. Articular surfaces were normal. The labrum at its inferior aspect did seem to show some mild fraying and some mild fraying on the adjacent cartilage surface of the glenoid. The bursal area showed thickened bursa, a type 2 acromion, intact rotator cuff. The patient's biceps tendon had been carefully examined and probed and was felt to be completely intact throughout its intra-articular course, and as it was drawn into the shoulder, it was also normal on what was viewed; therefore, biceps tenodesis not undertaken. OPERATIVE PROCEDURE: Patient was taken to the operating room and given a general anesthetic. She was positioned beach-chair. She previously had an interscalene block. Her shoulder was sterilely prepped and draped in standard fashion. Surgical timeout was held. Arthroscopy was undertaken of the shoulder using a posterior acromial portal with a full arthroscopic exam made with a counter portal anteriorly and a lateral acromial portal. The labral tear was handled by using a shaver, followed by the ArthroCare wand to debride the labral tear. A probe was introduced and the biceps drawn into the shoulder and carefully inspected. The rotator cuff was probed and there was no tear in the cuff, no abnormality in the biceps. The labrum was carefully probed front to back, and the only abnormality was the small posterosuperior tear, the biceps anchor being intact. The scope was then placed subacromial and the ArthroWand was used to debride bursal tissue, followed by use of a shaver and finally a bur to plane down the acromion and create an acromioplasty. This allowed better visualization of the entire space and a better bursectomy. The area was flushed and irrigated. The cuff was examined. It was intact. Instruments were removed and portals closed with interrupted 3-0 nylon. Sterile dressings were applied. The patient was taken to recovery room in stable condition with a dressing in place and in a sling. ESTIMATED BLOOD LOSS: Less than 20 mL COMPLICATIONS: None. COUNTS: Sponge and needle counts correct. TD: 11/21/2017 18:45
== END 2017-11-21 11:03 | disposition home or self-care (01) ==
LOC: SDS 11:02
PROVIDERS: ATTEND Orthopaedic Surgery
PROC: 0RBK4ZZ Excision of Left Shoulder Joint, Percutaneous Endoscopic Approach (ICD-10-PCS; 2017-11-21)
PROC: 0RBK4ZZ Excision of Left Shoulder Joint, Percutaneous Endoscopic Approach (ICD-10-PCS; principal; 2017-11-21 12:15)
PROC: 0RNK4ZZ Release Left Shoulder Joint, Percutaneous Endoscopic Approach (ICD-10-PCS; 2017-11-21 12:15)
DX: M75.42 Impingement syndrome of left shoulder (principal); M75.52 Bursitis of left shoulder; S46.812A Strain of other muscles, fascia and tendons at shoulder and upper arm level, left arm, initial encounter; F17.210 Nicotine dependence, cigarettes, uncomplicated
CPT/HCPCS: 29822; 29826; A9270; J0330; J0690; J7120

== ENCOUNTER 2018-05-07 14:54 | Outpatient (CLI) | payer MEDICAID, OTHER ==
[2018-05-07 18:30] LABS: BASOPHILS # (AUTO) 0.1 10^3/uL (0.0-0.1); BASOPHILS % (AUTO) 1.1 %; EOSINOPHILS # (AUTO) 0.1 10^3/uL (0.0-0.7); EOSINOPHILS % (AUTO) 1.6 %; HGB - HEMOGLOBIN 13.1 g/dL (12.0-16.0); LYMPHOCYTES # (AUTO) 1.1 10^3/uL (1.5-3.5); LYMPHOCYTES % (AUTO) 22.9 %; MEAN CORPUSCULAR HEMOGLOBIN 31.1 pg (27.0-31.0); MEAN CORPUSCULAR HGB CONC 33.9 g/dL (32.0-36.0); MEAN CORPUSCULAR VOLUME 91.9 fL (81.0-99.0); MEAN PLATELET VOLUME 9.7 fL (7.9-10.8); MONOCYTES # (AUTO) 0.5 10^3/uL (0.0-1.0); MONOCYTES % (AUTO) 9.7 %; NEUTROPHILS # (AUTO) 3.1 10^3/uL (1.5-6.6); NEUTROPHILS % (AUTO) 64.7 %; PLT - PLATELET COUNT 168 10^3/uL (130-450); RED CELL DISTRIBUTION WIDTH 14.8 % (12.0-15.0); WHITE BLOOD COUNT 4.8 x10^3/uL (4.8-10.8)
[2018-05-07 19:19] LABS: ALBUMIN 4.1 g/dL (3.2-5.5); ALBUMIN/GLOBULIN RATIO 1.5 (1.0-2.2); ALKALINE PHOSPHATASE 66 IU/L (42-121); ALT ALANINE AMINOTRANSFERASE 17 IU/L (10-60); AST ASPARTATE AMINOTRANSFERASE 19 IU/L (10-42); BILIRUBIN,TOTAL 0.9 mg/dL (0.2-1.0); BUN - BLOOD UREA NITROGEN 8 mg/dL (6-20); CALCIUM 9.3 mg/dL (8.5-10.3); CARBON DIOXIDE - CO2 30 mmol/L (21-32); CHLORIDE 99 mmol/L (101-111); CHOL/HDL RATIO 3.1 (<4.4); CHOLESTEROL 207 mg/dL; CREATININE 0.6 mg/dL (0.4-1.0); GFR - MDRD 102 (>89); GLUCOSE 86 mg/dL (70-100); HDL CHOLESTEROL 67 mg/dL; LDL CHOLESTEROL,CALCULATED 127 mg/dL; LDL/HDL RATIO 1.9 (<4.4); SODIUM 139 mmol/L (135-145); TOTAL PROTEIN 6.9 g/dL (6.7-8.2); VLDL CHOLESTEROL 13 mg/dL
== END 2018-05-07 14:55 | disposition home or self-care (01) ==
LOC: LAB.N 14:54
PROVIDERS: ATTEND Nurse Practitioner Gerontology
DX: Z13.9 Encounter for screening, unspecified (principal); E03.9 Hypothyroidism, unspecified
CPT/HCPCS: 36415; 80053; 80061; 83721; 84443; 85025

== ENCOUNTER 2018-07-24 08:03 | Emergency (ER) | payer MEDICAID ==
[2018-07-24] MEDS ORDERED: guaiFENesin/DEXTROMETHORPHAN 10 ML UDC PO STA (09:06)
[2018-07-24] MEDS ORDERED: BENZONATATE 100 MG CAPSULE PO STA (09:06)
[2018-07-24] MEDS ORDERED: DOXYCYCLINE 100 MG TABLET PO STA (09:07)
--- NOTE | 2018-07-24 09:11 | ED Physician Documentation ---
History of Present Illness - Stated complaint Stated Complaint: FEVER/BODYACHE/CHEST PX/COUGH - Chief complaint Chief Complaint: General - Additonal information Additional information: hx from pt fairly healthy 57 y/o f 5 days of fever myalgias producitve cough room mate with similar but milder sx no NVD no travel Review of Systems Constitutional: reports: Fever, Chills, Myalgias Cardiac: reports: Chest pain / pressure (with coughing) Respiratory: reports: Cough GI: denies: Abdominal Pain, Nausea, Vomiting, Diarrhea Musculoskeletal: denies: Extremity swelling Endocrine: denies: Easy bruising / bleeding Immunocompromised: denies: Immunocompromised PD PAST MEDICAL HISTORY - Past Medical History Past Medical History: Yes Cardiovascular: None Respiratory: None Endocrine/Autoimmune: HyPOthyroidism GI: None 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 : None HEENT: None Psych: Depression, Bipolar disorder, Other Musculoskeletal: Other Derm: None - Past Surgical History Past Surgical History: Yes General: Cholecystectomy, Gastric surgery, Other Ortho: Rotator cuff repair, Carpal Tunnel surgery, Other /SHOWER DOORS AND PANELS FABRICATOR: Hysterectomy, Breast reduction HEENT: Tonsil/Adenoidectomy - Present Medications Home Medications: Ambulatory Orders Medication Instructions Recorded Confirmed Divalproex Sodium [Depakote] 750 mg PO BID 11/20/15 07/24/18 Escitalopram [Lexapro] 40 mg PO DAILY 11/20/15 07/24/18 Levothyroxine [Synthroid] 0.175 mcg PO DAILY 11/20/15 07/24/18 Gabapentin 300 mg PO BID 03/30/16 07/24/18 Disulfiram [Antabuse] 250 mg PO DAILY 07/15/17 07/24/18 Trazodone HCl 200 mg PO DAILY PM 11/20/17 07/24/18 Benzonatate [Tessalon Perle] 100 mg PO TID PRN #20 capsule 07/24/18 Cyclobenzaprine [Flexeril] 10 mg PO TID PRN #20 tablet 07/24/18 Doxycycline Hyclate 100 mg PO BID #13 capsule 07/24/18 guaiFENesin/DEXTROMETHORPHAN 10 ml PO Q6H PRN #120 ml 07/24/18 [Robitussin Dm] - Allergies Allergies/Adverse Reactions: Allergies Allergy/AdvReac Type Severity Reaction Status Date / Time No Known Drug Allergies Allergy Verified 07/24/18 08:22 - Social History Does the pt smoke?: Yes Smoking Status: Former smoker Does the pt drink ETOH?: Yes Does the pt have substance abuse?: No - Immunizations Immunizations are current?: Yes - POLST Patient has POLST: No PD ED PE NORMAL - Vitals Vital signs reviewed: Yes - General General: Alert and oriented X 3 - Neck Neck: Supple, no meningeal sign - Cardiac Cardiac: RRR - Respiratory Respiratory: Other (ronchi kory bases L > R) - Derm Derm: Normal color - Extremities Extremities: No deformity, No edema, No calf tenderness / cord - Neuro Neuro: Alert and oriented X 3 Results - Vitals Vitals: Vital Signs - 24 hr 07/24/18 08:11 Temperature 36.8 C Heart Rate 74 Respiratory 18 Rate Blood Pressure 128/70 O2 Saturation 98 Oxygen O2 Source Room air - Labs Labs: Laboratory Tests 07/24/18 08:18 Influenza A (Rapid) Negative Influenza B (Rapid) Negative PD MEDICAL DECISION MAKING - ED course ED course: sx c/w influenza but fu swabs neg and alos pt sick for 5 days already and no sig co-morbidities so do not think tamiflue will help does have lingular infiltrate on CXR zmax interacts with her other meds so rx doxy also cough meds and she req a mm relaxnat for the mylagias so will rx that and motin apap OTC Departure - Departure Disposition: 01 Home, Self Care Clinical Impression: Pneumonia Qualifiers: Pneumonia type: due to unspecified organism Laterality: left Lung location: unspecified part of lung Qualified Code(s): J18.9 - Pneumonia, unspecified organism Condition: Good Instructions: ED Pneumonia Adult Follow-Up: Tatiana Wiggins CARPENTER REPAIRER [Primary Care Provider] - Prescriptions: Benzonatate [Tessalon Perle] 100 mg PO TID PRN #20 capsule PRN Reason: Cough Cyclobenzaprine [Flexeril] 10 mg PO TID PRN #20 tablet PRN Reason: Spasms Doxycycline Hyclate 100 mg PO BID #13 capsule guaiFENesin/DEXTROMETHORPHAN [Robitussin Dm] 10 ml PO Q6H PRN #120 ml PRN Reason: Cough Comments: Take the antibiotics twice a day for a week. Tessalon and robitussin DM as needed for cough Motrin and Tylenol for pain and fever Flexeril to help relieve muscle aches. Rest and drink plenty of fluids Return if worse Forms: Activity restrictions
[2018-07-24 09:17] VITALS: BP 108/68
--- NOTE | 2018-07-24 17:23 | XRAY Report ---
Reason: soa Procedure Date: 07/24/2018 Accession Number: [id number] / [id number] Procedure: XR - Chest 2 View X-Ray CPT Code: 40698 FULL RESULT: EXAM: CHEST RADIOGRAPHY EXAM DATE: 07/24/2018 08:54 AM. CLINICAL HISTORY: Shortness of breath. COMPARISON: CHEST 2 VIEW PA/LAT 07/19/2016 4:34 PM. TECHNIQUE: 2 views. FINDINGS: Lungs/Pleura: As before, there is blunting of the left costophrenic sulcus likely due to pleural scarring. There is an equivocal new minor airspace disease in the right upper lung. The lungs are otherwise clear. There is no effusion, pneumothorax, or vascular congestion. Mediastinum: Heart and mediastinal contours are unremarkable. Other: None. IMPRESSION: Equivocal minor right upper lung airspace disease could represent small focus of pneumonia or aspiration. [facility]
== END 2018-07-24 09:24 | disposition home or self-care (01) ==
LOC: ED 08:03
DX: J18.9 Pneumonia, unspecified organism (principal); E03.9 Hypothyroidism, unspecified; Z87.891 Personal history of nicotine dependence
CPT/HCPCS: 71046; 87275; 87276; 99283; A9270

== ENCOUNTER 2018-08-28 11:57 | Emergency (ER) | payer MEDICAID ==
[2018-08-28 12:09] VITALS: BP 117/60
--- NOTE | 2018-08-28 12:53 | ED Physician Documentation ---
PD HPI LOWER EXT INJURY - Stated complaint Stated Complaint: LEFT KNEE INJ - Chief complaint Chief Complaint: Ext Problem - History obtained from History obtained from: Patient - History of Present Illness PD HPI LOW EXT INJURY LOCATION: Left, Knee Type of injury: Fall (she slid and fell forward onto both knees and then as she was trying to get up, she fell to the right, causing valgus stress on the left knee. Right knee is feeling better but left is still hurting.) Timing - onset: How many weeks ago (1) Timing - duration: Weeks (1) Timing - details: Abrupt onset, Still present Worsened by: Moving (step off part of walking and with twisting motions.), Other (hurting more with having to walk long way at work.) Associated symptoms: Swelling, Discolored (brusing noted anteromedial knees both sides, left more). 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 : None HEENT: None Psych: Depression, Bipolar disorder, Other Musculoskeletal: Other Derm: None - Past Surgical History Past Surgical History: Yes General: Cholecystectomy, Gastric surgery, Other Ortho: Rotator cuff repair, Carpal Tunnel surgery, Other /PLATEN GRINDER: Hysterectomy, Breast reduction HEENT: Tonsil/Adenoidectomy - Present Medications Home Medications: Ambulatory Orders Medication Instructions Recorded Confirmed Divalproex Sodium [Depakote] 750 mg PO BID 11/20/15 08/28/18 Escitalopram [Lexapro] 40 mg PO DAILY 11/20/15 08/28/18 Levothyroxine [Synthroid] 0.175 mcg PO DAILY 11/20/15 08/28/18 Gabapentin 300 mg PO BID 03/30/16 08/28/18 Disulfiram [Antabuse] 250 mg PO DAILY 07/15/17 08/28/18 Trazodone HCl 200 mg PO DAILY PM 11/20/17 08/28/18 Benzonatate [Tessalon Perle] 100 mg PO TID PRN #20 capsule 07/24/18 Cyclobenzaprine [Flexeril] 10 mg PO TID PRN #20 tablet 07/24/18 Doxycycline Hyclate 100 mg PO BID #13 capsule 07/24/18 guaiFENesin/DEXTROMETHORPHAN 10 ml PO Q6H PRN #120 ml 07/24/18 [Robitussin Dm] Oxycodone HCl/Acetaminophen 1 - 2 each PO Q6H PRN #14 tablet 08/28/18 [Percocet 5-325 mg Tablet] - Allergies Allergies/Adverse Reactions: Allergies Allergy/AdvReac Type Severity Reaction Status Date / Time No Known Drug Allergies Allergy Verified 08/28/18 12:08 - Social History Does the pt smoke?: Yes Smoking Status: Former smoker Does the pt drink ETOH?: Yes Does the pt have substance abuse?: No - Immunizations Immunizations are current?: Yes - POLST Patient has POLST: No PD ED PE NORMAL - Vitals Vital signs reviewed: Yes - General General: Alert and oriented X 3, Well developed/nourished - Derm Derm: Normal color, Warm and dry - Extremities Extremities: Other (both knees with some bruising anteromedial, left more. Left knee with mild anterior effusion. Tender medially and hurts without laxity on valgus stress testing. Cruciate testing not hurting nor painful. Some pain with foot rotation so consider possible meniscal bruising. No click nor pop on ROM passive. ) Results - Vitals Vitals: Vital Signs - 24 hr 08/28/18 12:06 Temperature 36.7 C Heart Rate 89 Respiratory 17 Rate Blood Pressure 117/60 O2 Saturation 100 Oxygen O2 Source Room air - Rads (name of study) left knee xray Radiology: Prelim report reviewed (no fractures. small effusion. ), EMP read contemporaneously, See rad report PD MEDICAL DECISION MAKING - ED course Complexity details: reviewed results, considered differential (still with bruising and swelling and with some pain on valgus. No clicking nor popping. Seems likely MCL strain and the bruising. ), d/w patient Departure - Departure Disposition: 01 Home, Self Care Clinical Impression: Contusion of left knee Qualifiers: Encounter type: initial encounter Qualified Code(s): S80.02XA - Contusion of left knee, initial encounter Knee strain Qualifiers: Encounter type: initial encounter Laterality: left Qualified Code(s): S86.912A - Strain of unspecified muscle(s) and tendon(s) at lower leg level, left leg, initial encounter Condition: Stable Record reviewed to determine appropriate education?: Yes Instructions: ED Sprain Knee Follow-Up: Tatiana Wiggins ARNP [Primary Care Provider] - [facility] [Provider Group] Prescriptions: Oxycodone HCl/Acetaminophen [Percocet 5-325 mg Tablet] 1 - 2 each PO Q6H PRN #14 tablet PRN Reason: pain Comments: Use the knee brace when up and around walking for sure and other times as needed for comfort. You can have it off when rested. Continue with the anti- inflammatories. Previously prescribed. Add Percocet if needed for pains at times when rested or at night. He certainly have the bruising there and that will still take some time to resolve. I think there may be a strain of the MCL ligament as well and that should heal up with the knee brace in some time. Recheck if not better over the next week or so. No prolonged walking or standing and I wrote a note as such. Forms: Activity restrictions Discharge Date/Time: 08/28/18 15:00
--- NOTE | 2018-08-28 13:58 | XRAY Report ---
Reason: fall Procedure Date: 08/28/2018 Accession Number: [id number] / [id number] Procedure: XR - Knee 4 View LT CPT Code: FULL RESULT: EXAM: LEFT KNEE RADIOGRAPHY EXAM DATE: 08/28/2018 01:48 PM. CLINICAL HISTORY: Fall. COMPARISON: None. TECHNIQUE: 4 views. FINDINGS: Bones: No fractures or bone lesions. Joints: There is a small effusion. No subluxations. Soft Tissues: No soft tissue swelling. IMPRESSION: Small effusion. No evidence of acute fracture. [facility]
== END 2018-08-28 15:00 | disposition home or self-care (01) ==
LOC: ED 11:57
DX: S80.02XA Contusion of left knee, initial encounter (principal); S86.912A Strain of unspecified muscle(s) and tendon(s) at lower leg level, left leg, initial encounter; W00.0XXA Fall on same level due to ice and snow, initial encounter; E03.9 Hypothyroidism, unspecified; Z87.891 Personal history of nicotine dependence
CPT/HCPCS: 99283

== ENCOUNTER 2018-11-06 08:00 | Outpatient (CLI) | payer MEDICAID ==
[2018-11-06 12:42] LABS: ALBUMIN 3.9 g/dL (3.2-5.5); ALBUMIN/GLOBULIN RATIO 1.3 (1.0-2.2); ALKALINE PHOSPHATASE 59 IU/L (42-121); ALT ALANINE AMINOTRANSFERASE 31 IU/L (10-60); AST ASPARTATE AMINOTRANSFERASE 25 IU/L (10-42); BILIRUBIN,TOTAL 0.4 mg/dL (0.2-1.0); BUN - BLOOD UREA NITROGEN 18 mg/dL (6-20); CALCIUM 9.3 mg/dL (8.5-10.3); CARBON DIOXIDE - CO2 31 mmol/L (21-32); CHLORIDE 97 mmol/L (101-111); CHOL/HDL RATIO 3.4 (<4.4); CHOLESTEROL 235 mg/dL; CREATININE 0.6 mg/dL (0.4-1.0); GFR - MDRD 102 (>89); GLUCOSE 89 mg/dL (70-100); HDL CHOLESTEROL 70 mg/dL; LDL CHOLESTEROL,CALCULATED 144 mg/dL; LDL/HDL RATIO 2.1 (<4.4); SODIUM 136 mmol/L (135-145); VALPROIC ACID (DEPAKOTE) 27.2 ug/mL; VLDL CHOLESTEROL 21 mg/dL
[2018-11-06 12:50] LABS: THYROID STIMULATING HORMONE 15.85 uIU/mL (0.34-5.60)
[2018-11-06 13:01] LABS: FOLATE 20.86 ng/mL (5.90 - >24.8)
[2018-11-06 13:08] LABS: BASOPHILS % (AUTO) 0.8 %; EOSINOPHILS # (AUTO) 0.1 10^3/uL (0.0-0.7); EOSINOPHILS % (AUTO) 2.1 %; HGB - HEMOGLOBIN 12.9 g/dL (12.0-16.0); LYMPHOCYTES # (AUTO) 1.5 10^3/uL (1.5-3.5); LYMPHOCYTES % (AUTO) 25.4 %; MEAN CORPUSCULAR HEMOGLOBIN 30.5 pg (27.0-31.0); MEAN CORPUSCULAR HGB CONC 33.6 g/dL (32.0-36.0); MEAN CORPUSCULAR VOLUME 90.6 fL (81.0-99.0); MEAN PLATELET VOLUME 9.2 fL (7.9-10.8); MONOCYTES # (AUTO) 0.5 10^3/uL (0.0-1.0); MONOCYTES % (AUTO) 8.3 %; NEUTROPHILS # (AUTO) 3.9 10^3/uL (1.5-6.6); NEUTROPHILS % (AUTO) 63.4 %; PLT - PLATELET COUNT 189 10^3/uL (130-450); RED BLOOD COUNT 4.24 10^6/uL (4.20-5.40); RED CELL DISTRIBUTION WIDTH 15.5 % (12.0-15.0); WHITE BLOOD COUNT 6.1 x10^3/uL (4.8-10.8)
== END 2018-11-06 08:01 | disposition home or self-care (01) ==
LOC: LAB.N 08:00
PROVIDERS: ATTEND Nurse Practitioner
DX: E55.9 Vitamin D deficiency, unspecified (principal); E03.9 Hypothyroidism, unspecified; R53.83 Other fatigue; F10.21 Alcohol dependence, in remission; F31.30 Bipolar disorder, current episode depressed, mild or moderate severity, unspecified
CPT/HCPCS: 36415; 80053; 80061; 80164; 82306; 82607; 82746; 83721; 84443; 85025

== ENCOUNTER 2019-02-22 12:02 | Outpatient (CLI) | payer BC, MEDICAID | END 2019-02-22 12:03 | disposition short-term general hospital (02) | LOC: EMS 12:02 | PROVIDERS: ATTEND Surgery | DX: R51 Headache (principal); R53.1 Weakness; R53.83 Other fatigue | CPT/HCPCS: A0425; A0429 ==

== ENCOUNTER 2019-02-23 14:30 | Outpatient (CLI) | payer BC | END 2019-02-23 14:31 | disposition critical access hospital (66) | LOC: EMS 14:30 | PROVIDERS: ATTEND Surgery | DX: R41.0 Disorientation, unspecified (principal) | CPT/HCPCS: A0425; A0429 ==

== ENCOUNTER 2019-02-23 15:03 | Emergency (ER) | payer BC, MEDICAID ==
--- NOTE | 2019-02-23 15:17 | ED Physician Documentation ---
History of Present Illness - Stated complaint Stated Complaint: ETOH - Chief complaint Chief Complaint: General - History obtained from History obtained from: Patient - Additonal information Additional information: Patient is a 58-year-old female presenting by EMS with concern for alcohol intoxication.Patient herself only reports history of thyroid disease, however, upon chart review, patient has multiple other comorbidities including bipolar disorder. 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 Patient denies other illicit substances or coingestions. Patient denies suicidal or homicidal thoughts. Patient reports that she has felt dizzy and believes she may have fainted. No trauma or injury. Patient denies nausea, vomiting, abdominal pain, urine changes, or stool changes. Patient also denies headache, chest pain, difficulty breathing or other complaints. No other improving or worsening factors noted. 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 : None HEENT: None Psych: Depression, Bipolar disorder, Other Musculoskeletal: Other Derm: None - Past Surgical History Past Surgical History: Yes General: Cholecystectomy, Gastric surgery, Other Ortho: Rotator cuff repair, Carpal Tunnel surgery, Other /BUSINESS SERVICES ASSISTANT: Hysterectomy, Breast reduction HEENT: Tonsil/Adenoidectomy - Present Medications Home Medications: Ambulatory Orders Medication Instructions Recorded Confirmed Divalproex Sodium [Depakote] 750 mg PO BID 11/20/15 08/28/18 Escitalopram [Lexapro] 40 mg PO DAILY 11/20/15 08/28/18 Levothyroxine [Synthroid] 0.175 mcg PO DAILY 11/20/15 08/28/18 Gabapentin 300 mg PO BID 03/30/16 08/28/18 Disulfiram [Antabuse] 250 mg PO DAILY 07/15/17 08/28/18 Trazodone HCl 200 mg PO DAILY PM 11/20/17 08/28/18 - Allergies Allergies/Adverse Reactions: Allergies Allergy/AdvReac Type Severity Reaction Status Date / Time No Known Drug Allergies Allergy Verified 02/23/19 15:09 - Social History Does the pt smoke?: Yes Smoking Status: Current every day smoker Does the pt drink ETOH?: Yes Does the pt have substance abuse?: No - Immunizations Immunizations are current?: Yes - POLST Patient has POLST: No PD ED PE NORMAL - Vitals Vital signs reviewed: Yes - General General: No acute distress, Well developed/nourished, Other (Smells of alcohol). No: Alert and oriented X 3 (Except to time) - HEENT HEENT: Atraumatic, PERRL, EOMI, Moist mucous membranes, Pharynx benign, Dentition benign - Neck Neck: Supple, no meningeal sign - Cardiac Cardiac: RRR, No murmur - Respiratory Respiratory: No respiratory distress, Clear bilaterally - Abdomen Abdomen: Soft, Non tender, Non distended - Derm Derm: Normal color, Warm and dry, No rash - Extremities Extremities: No deformity, No tenderness to palpate - Neuro Neuro: No motor deficit, No sensory deficit, Normal speech - Psych Psych: Other (Appears slightly intoxicated) Results - Vitals Vitals: Vital Signs - 24 hr 02/23/19 02/23/19 15:05 17:58 Temperature 37.1 C 36.5 C Heart Rate 63 75 Respiratory 18 15 Rate Blood Pressure 119/62 117/62 O2 Saturation 96 100 Oxygen O2 Source Room air - Labs Labs: Laboratory Tests 02/23/19 02/23/19 02/23/19 15:30 15:30 15:30 WBC 8.6 RBC 4.62 Hgb 14.0 Hct 41.7 MCV 90.3 MCH 30.3 MCHC 33.6 RDW 13.6 Plt Count 252 MPV 10.6 Neut # (Auto) 5.5 Lymph # (Auto) 2.0 [place] # (Auto) 0.8 Eos # (Auto) 0.2 Baso # (Auto) 0.1 Absolute Nucleated RBC 0.00 Nucleated RBC % 0.0 Sodium 144 Potassium 4.1 Chloride 104 Carbon Dioxide 23 Anion Gap 17.0 H BUN 9 Creatinine 0.6 Estimated GFR (MDRD) 102 Glucose 95 Calcium 9.2 Total Bilirubin 0.3 AST 39 ALT 30 Alkaline Phosphatase 65 Total Protein 7.0 Albumin 4.0 Globulin 3.0 Albumin/Globulin Ratio 1.3 Lipase 56 H TSH 0.08 L Urine Color Urine Clarity Urine pH Ur Specific [place] Urine Protein Urine Glucose (UA) Urine Ketones Urine Occult Blood Urine Nitrite Urine Bilirubin Urine Urobilinogen Ur Leukocyte Esterase Urine RBC Urine WBC Ur Squamous Epith Cells Urine Bacteria Urine Casts Ur Microscopic Review Urine Culture Comments Salicylates < 6.0 Urine Opiates Screen Ur Oxycodone Screen Urine Methadone Screen Ur Propoxyphene Screen Acetaminophen < 10 L Ur Barbiturates Screen Ur Tricyclics Screen Ur Phencyclidine Scrn Ur Amphetamine Screen U Methamphetamines Scrn U Benzodiazepines Scrn Urine Cocaine Screen U Cannabinoids Screen Ethyl Alcohol 266.3 02/23/19 17:20 WBC RBC Hgb Hct MCV MCH MCHC RDW Plt Count MPV Neut # (Auto) Lymph # (Auto) [place] # (Auto) Eos # (Auto) Baso # (Auto) Absolute Nucleated RBC Nucleated RBC % Sodium Potassium Chloride Carbon Dioxide Anion Gap BUN Creatinine Estimated GFR (MDRD) Glucose Calcium Total Bilirubin AST ALT Alkaline Phosphatase Total Protein Albumin Globulin Albumin/Globulin Ratio Lipase TSH Urine Color YELLOW Urine Clarity CLEAR Urine pH 5.0 Ur Specific [place] 1.010 Urine Protein NEGATIVE Urine Glucose (UA) NEGATIVE Urine Ketones NEGATIVE Urine Occult Blood SMALL H Urine Nitrite NEGATIVE Urine Bilirubin NEGATIVE Urine Urobilinogen 0.2 (NORMAL) Ur Leukocyte Esterase NEGATIVE Urine RBC 0-5 Urine WBC 0-3 Ur Squamous Epith Cells FEW Squamous Urine Bacteria None Seen Urine Casts 0-2 Hyaline Casts Ur Microscopic Review INDICATED Urine Culture Comments NOT INDICATED Salicylates Urine Opiates Screen NEGATIVE Ur Oxycodone Screen NEGATIVE Urine Methadone Screen NEGATIVE Ur Propoxyphene Screen NEGATIVE Acetaminophen Ur Barbiturates Screen NEGATIVE Ur Tricyclics Screen NEGATIVE Ur Phencyclidine Scrn NEGATIVE Ur Amphetamine Screen NEGATIVE U Methamphetamines Scrn NEGATIVE U Benzodiazepines Scrn NEGATIVE Urine Cocaine Screen NEGATIVE U Cannabinoids Screen NEGATIVE Ethyl Alcohol PD MEDICAL DECISION MAKING - ED course Complexity details: reviewed results, re-evaluated patient, considered differential, d/w patient ED course: Patient presenting with seemingly uncomplicated alcohol intoxication. Patient denies history of complicated alcohol withdrawal.Patient does not appear to be in acute withdrawal or suffering from other toxidrome. Patient denies suicidality or other psychiatric complication at this time. Patient does not appear to be a harm to herself or responding to internal stimuli. Physical exam is extremely unremarkable including no evidence of trauma, neurological deficit, or systemic infection. Screening lab work and urinalysis obtained. Patient ambulatory throughout the ED and appearing clinically sober. Screening lab work was relatively unremarkable except for abnormal TSH but patient has known underlying thyroid disorder and is possibly noncompliant with medication. Do not feel this is related to today's complaints and does not require emergent work-up at this time. Urinalysis and drug screen also returned relatively unremarkable except for presence of alcohol suspected. Patient and nursing attempted to contact patient's daughter unsuccessfully. Patient requesting discharge home at this time and refuses to stay otherwise and plans to take a cab. At this time, feel it is appropriate to discharge patient as she is not a risk to herself or others and cannot be held against her will. Departure - Departure Disposition: 01 Home, Self Care Clinical Impression: Alcohol intoxication Qualifiers: Complication of substance-induced condition: uncomplicated Qualified Code(s): F10.920 - Alcohol use, unspecified with intoxication, uncomplicated Condition: Good Instructions: ED Alcohol Intoxication Follow-Up: your,doctor [Other] - Within 3 Days Comments: Recommend avoidance of alcohol, tobacco, recreational drugs. Please follow-up with primary care physician in next 2 to 3 days and return to ED sooner if experience worsening symptoms or other concerns.
[2019-02-23] MEDS ORDERED: FOLIC ACID INJ 1 MG, THIAMINE INJ 100 MG, MAGNESIUM SULFATE 2 GM, MULTIVITAMIN 10 ML in... IV STA ×5 (15:26)
[2019-02-23] MEDS ORDERED: SODIUM CHLORIDE 0.9% 1,000 ML IV ONE (15:26)
[2019-02-23 15:52] LABS: BASOPHILS # (AUTO) 0.1 10^3/uL (0.0-0.1); BASOPHILS % (AUTO) 0.6 %; EOSINOPHILS # (AUTO) 0.2 10^3/uL (0.0-0.7); EOSINOPHILS % (AUTO) 1.9 %; LYMPHOCYTES % (AUTO) 23.8 %; MEAN CORPUSCULAR HEMOGLOBIN 30.3 pg (27.0-31.0); MEAN CORPUSCULAR HGB CONC 33.6 g/dL (32.0-36.0); MEAN CORPUSCULAR VOLUME 90.3 fL (81.0-99.0); MEAN PLATELET VOLUME 10.6 fL (7.9-10.8); MONOCYTES # (AUTO) 0.8 10^3/uL (0.0-1.0); MONOCYTES % (AUTO) 9.7 %; NEUTROPHILS # (AUTO) 5.5 10^3/uL (1.5-6.6); NEUTROPHILS % (AUTO) 63.4 %; PLT - PLATELET COUNT 252 10^3/uL (130-450); RED BLOOD COUNT 4.62 10^6/uL (4.20-5.40); RED CELL DISTRIBUTION WIDTH 13.6 % (12.0-15.0); WHITE BLOOD COUNT 8.6 x10^3/uL (4.8-10.8)
[2019-02-23 16:06] LABS: ACETAMINOPHEN < 10 ug/mL (10-30); ALBUMIN/GLOBULIN RATIO 1.3 (1.0-2.2); ALKALINE PHOSPHATASE 65 IU/L (42-121); ALT ALANINE AMINOTRANSFERASE 30 IU/L (10-60); AST ASPARTATE AMINOTRANSFERASE 39 IU/L (10-42); BILIRUBIN,TOTAL 0.3 mg/dL (0.2-1.0); BUN - BLOOD UREA NITROGEN 9 mg/dL (6-20); CALCIUM 9.2 mg/dL (8.5-10.3); CARBON DIOXIDE - CO2 23 mmol/L (21-32); CHLORIDE 104 mmol/L (101-111); CREATININE 0.6 mg/dL (0.4-1.0); GFR - MDRD 102 (>89); GLUCOSE 95 mg/dL (70-100); LIPASE 56 U/L (22-51); SALICYLATE < 6.0 mg/dL; SODIUM 144 mmol/L (135-145)
[2019-02-23 17:32] LABS: MUDS CUTOFF CONCENTRATIONS CUTOFF CONC BELOW:
[2019-02-23 17:34] LABS: BILIRUBIN,URINE NEGATIVE (NEGATIVE); GLUCOSE, URINE (UA) NEGATIVE (NEGATIVE); KETONES,URINE (UA) NEGATIVE (NEGATIVE); LEUKOCYTE ESTERASE, URINE NEGATIVE (NEGATIVE); NITRITE,URINE NEGATIVE (NEGATIVE); OCCULT BLOOD,URINE SMALL (NEGATIVE); PROTEIN,URINE NEGATIVE (NEGATIVE); UROBILINOGEN,URINE 0.2 (NORMAL) E.U./dL (NORMAL)
[2019-02-23 17:40] LABS: CLARITY,URINE CLEAR (CLEAR)
[2019-02-23 17:41] LABS: BACTERIA,URINE None Seen /HPF (None Seen); CASTS, URINE 0-2 Hyaline Casts /LPF; RBC,URINE 0-5 /HPF (0-5); SQUAMOUS EPITHELIAL CELL,UR FEW Squamous (<= Few)
[2019-02-23 17:44] LABS: AMPHETAMINE SCREEN,URINE NEGATIVE (NEGATIVE); BENZODIAZEPINES SCREEN, URINE NEGATIVE (NEGATIVE); COCAINE SCREEN URINE NEGATIVE (NEGATIVE); METHADONE SCREEN, URINE NEGATIVE (NEGATIVE); METHAMPHETAMINES SCREEN, URINE NEGATIVE (NEGATIVE); OPIATE SCREEN, URINE NEGATIVE (NEGATIVE); OXYCODONE SCREEN, URINE NEGATIVE (NEGATIVE); PROPOXYPHENE SCREEN, URINE NEGATIVE (NEGATIVE); TRICYCLIC ANTIDEPRESSANT,URINE NEGATIVE (NEGATIVE)
[2019-02-23 17:59] VITALS: BP 117/62
== END 2019-02-23 18:11 | disposition home or self-care (01) ==
LOC: EDUNIT# → ED 15:03
DX: F10.920 Alcohol use, unspecified with intoxication, uncomplicated (principal); F17.200 Nicotine dependence, unspecified, uncomplicated; E03.9 Hypothyroidism, unspecified
CPT/HCPCS: 36415; 80320; 80329; 81001; 83690; 96365; 96366; 99284; J3411; 80053; 80306; 80307; 81003; 84443; 85025; 87086

== ENCOUNTER 2019-02-24 16:27 | Outpatient (CLI) | payer BC | END 2019-02-24 16:28 | disposition short-term general hospital (02) | LOC: EMS 16:27 | PROVIDERS: ATTEND Surgery | DX: R41.82 Altered mental status, unspecified (principal); R47.81 Slurred speech; Z72.89 Other problems related to lifestyle | CPT/HCPCS: A0425; A0429 ==

== ENCOUNTER 2019-04-01 08:05 | Outpatient (CLI) | payer BC | END 2019-04-01 08:06 | disposition critical access hospital (66) | LOC: EMS 08:05 | PROVIDERS: ATTEND Surgery | DX: R40.20 Unspecified coma (principal); R15.9 Full incontinence of feces; R32 Unspecified urinary incontinence | CPT/HCPCS: A0425; A0433 ==

== ENCOUNTER 2019-04-01 08:21 | Inpatient (IN) | payer BC, MEDICAID ==
[2019-04-01] MEDS ORDERED: SODIUM CHLORIDE 0.9% 1,000 ML IV ONE ×2 (08:28→08:42)
[2019-04-01] MEDS ORDERED: FAMOTIDINE 20 MG/2 ML VIAL IVP STA (08:29)
--- NOTE | 2019-04-01 08:36 | ED Physician Documentation ---
PD HPI ALTERED MENTAL STATUS - Stated complaint Stated Complaint: OD - Chief complaint Chief Complaint: Resp - History obtained from History obtained from: EMS - History of Present Illness Timing - onset: Last night (She was in a drug and alcohol rehab facility and had drink last night so was going to be released from the program. However they did not want her to be leaving the facility while intoxicated so allowed her to sleep overnight to their. Facility the workers this morning found her in her room unresponsive with empty pill bottles in her room. EMS was called and they found her to be unresponsive to verbal but did have some gag reflex and fighting some for airway when they attempted intubation. She was therefore sedated and paralyzed with rapid sequence intubation and arrives here intubated.) Timing - duration: Hours Timing - details: Other (unknown - last seen last night, so unknown duration unresponsive.) Quality / character: Less responsive, Unresponsive Associated symptoms: Other (unknown) Contributing factors: Intoxicated, Substance abuse [place] status: Alert and oriented X 3, Ambulatory Treatment PORTRAIT PAINTER: Airway management Similar symptoms before: Has not had sx before Recently seen: Clinic (she was in substance abuse rehab treatment place.) Review of Systems Unable to obtain: Intubated, AMS PD PAST MEDICAL HISTORY - Past Medical History Cardiovascular: None Respiratory: None Endocrine/Autoimmune: HyPOthyroidism GI: None 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 : None HEENT: None Psych: Depression, Bipolar disorder, Other Musculoskeletal: Other Derm: None - Past Surgical History Past Surgical History: Yes General: Cholecystectomy, Gastric surgery, Other Ortho: Rotator cuff repair, Carpal Tunnel surgery, Other /QUARRY PLANT 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 OPERATOR: Hysterectomy, Breast reduction HEENT: Tonsil/Adenoidectomy - Present Medications Home Medications: Ambulatory Orders Medication Instructions Recorded Confirmed Divalproex Sodium [Depakote] 750 mg PO BID 11/20/15 08/28/18 Escitalopram [Lexapro] 20 mg PO DAILY 11/20/15 08/28/18 Levothyroxine [Synthroid] 200 mcg PO DAILY 11/20/15 08/28/18 Gabapentin 300 mg PO BID 03/30/16 08/28/18 Disulfiram [Antabuse] 250 mg PO DAILY 07/15/17 08/28/18 Trazodone HCl 200 mg PO DAILY PM 11/20/17 08/28/18 buPROPion [Wellbutrin Sr] 04/01/19 - Allergies Allergies/Adverse Reactions: Allergies Allergy/AdvReac Type Severity Reaction Status Date / Time No Known Drug Allergies Allergy Verified 02/23/19 15:09 - Social History Does the pt smoke?: Yes Smoking Status: Current every day smoker Does the pt drink ETOH?: Yes Does the pt have substance abuse?: No - Immunizations Immunizations are current?: Yes - POLST Patient has POLST: No PD ED PE NORMAL - Vitals Vital signs reviewed: Yes (hypotensive) - General General: Other (Intubated and unresponsive. No spontaneous breathing and no movement consistent with RSI for intubation.) - HEENT HEENT: Atraumatic, Pharynx benign, Other (ET tube in place at 19 cm.) - Neck Neck: No JVD, No bruit - Cardiac Cardiac: RRR, No murmur - Respiratory Respiratory: Other (Congested sounds bilaterally. Breath sounds are symmetric with bagged respirations. no resp effort.) - Abdomen Abdomen: Non distended. No: Normal bowel sounds (decreased) - Derm Derm: Normal color, Warm and dry, No rash - Extremities Extremities: No edema - Neuro Eye Opening: None Motor: None Verbal: None GCS Score: 3 Results - Vitals Vitals: Vital Signs - 24 hr 04/01/19 04/01/19 04/01/19 08:23 08:42 08:50 Temperature 36.2 C L Heart Rate 73 67 74 Respiratory 18 18 Rate Blood Pressure 71/43 L 64/32 L O2 Saturation 96 99 04/01/19 04/01/19 04/01/19 08:53 09:12 09:21 Temperature 35.6 C L Heart Rate 74 78 82 Respiratory 18 14 12 Rate Blood Pressure 68/44 L 73/47 L 115/78 O2 Saturation 100 100 100 Oxygen O2 Source Mechanical ventilator - EKG (time done) 08:41 Rate: Rate (enter#) (68) Rhythm: NSR [place]: Normal Intervals: Prolonged QT (520) Ischemia: Non specific changes (t wave flattening) - Labs Labs: Laboratory Tests 04/01/19 04/01/19 04/01/19 08:29 08:29 08:29 WBC 4.6 L RBC 3.53 L Hgb 10.5 L Hct 32.8 L MCV 92.9 MCH 29.7 MCHC 32.0 RDW 13.5 Plt Count 157 MPV 11.4 H Neut # (Auto) 3.3 Lymph # (Auto) 1.0 L [place] # (Auto) 0.2 Eos # (Auto) 0.0 Baso # (Auto) 0.0 Absolute Nucleated RBC 0.00 Nucleated RBC % 0.0 Bld Gas Analysis Time Sample Site ABG pH ABG pCO2 ABG pO2 ABG HCO3 ABG Total CO2 ABG O2 Saturation ABG Base Excess John Test Respiration Rate O2 Delivery Device Vent Mode FiO2 Tidal Volume PEEP Sodium 140 Potassium 4.9 Chloride 104 Carbon Dioxide 23 Anion Gap 13.0 BUN 15 Creatinine 1.5 H Estimated GFR (MDRD) 35 L Glucose 139 H Calcium 7.7 L Total Bilirubin 0.4 AST 20 ALT 14 Alkaline Phosphatase 47 Ammonia Total Protein 5.7 L Albumin 3.1 L Globulin 2.6 Albumin/Globulin Ratio 1.2 Lipase 50 TSH 0.09 L Urine Color Urine Clarity Urine pH Ur Specific [place] Urine Protein Urine Glucose (UA) Urine Ketones Urine Occult Blood Urine Nitrite Urine Bilirubin Urine Urobilinogen Ur Leukocyte Esterase Ur Microscopic Review Urine Culture Comments Urine HCG, Qual Last Dose Date Last Dose Time Salicylates < 6.0 Urine Opiates Screen Ur Oxycodone Screen Urine Methadone Screen Ur Propoxyphene Screen Acetaminophen < 10 L Ur Barbiturates Screen Valproic Acid Ur Tricyclics Screen Ur Phencyclidine Scrn Ur Amphetamine Screen U Methamphetamines Scrn U Benzodiazepines Scrn Urine Cocaine Screen U Cannabinoids Screen Ethyl Alcohol < 5.0 04/01/19 04/01/19 04/01/19 08:29 08:31 08:31 WBC RBC Hgb Hct MCV MCH MCHC RDW Plt Count MPV Neut # (Auto) Lymph # (Auto) [place] # (Auto) Eos # (Auto) Baso # (Auto) Absolute Nucleated RBC Nucleated RBC % Bld Gas Analysis Time Sample Site ABG pH ABG pCO2 ABG pO2 ABG HCO3 ABG Total CO2 ABG O2 Saturation ABG Base Excess John Test Respiration Rate O2 Delivery Device Vent Mode FiO2 Tidal Volume PEEP Sodium Potassium Chloride Carbon Dioxide Anion Gap BUN Creatinine Estimated GFR (MDRD) Glucose Calcium Total Bilirubin AST ALT Alkaline Phosphatase Ammonia Total Protein Albumin Globulin Albumin/Globulin Ratio Lipase TSH Urine Color LIGHT YELLOW Urine Clarity CLEAR Urine pH 5.5 Ur Specific [place] 1.010 Urine Protein NEGATIVE Urine Glucose (UA) NEGATIVE Urine Ketones NEGATIVE Urine Occult Blood TRACE-INTA Urine Nitrite NEGATIVE Urine Bilirubin NEGATIVE Urine Urobilinogen 0.2 (NORMAL) Ur Leukocyte Esterase NEGATIVE Ur Microscopic Review NOT INDICATED Urine Culture Comments NOT INDICATED Urine HCG, Qual NEGATIVE Last Dose Date UNK Last Dose Time UNK Salicylates Urine Opiates Screen NEGATIVE Ur Oxycodone Screen NEGATIVE Urine Methadone Screen NEGATIVE Ur Propoxyphene Screen NEGATIVE Acetaminophen Ur Barbiturates Screen NEGATIVE Valproic Acid 345.9 H* Ur Tricyclics Screen NEGATIVE Ur Phencyclidine Scrn NEGATIVE Ur Amphetamine Screen NEGATIVE U Methamphetamines Scrn NEGATIVE U Benzodiazepines Scrn NEGATIVE Urine Cocaine Screen NEGATIVE U Cannabinoids Screen NEGATIVE Ethyl Alcohol 04/01/19 04/01/19 08:50 09:10 WBC RBC Hgb Hct MCV MCH MCHC RDW Plt Count MPV Neut # (Auto) Lymph # (Auto) [place] # (Auto) Eos # (Auto) Baso # (Auto) Absolute Nucleated RBC Nucleated RBC % Bld Gas Analysis Time 0900 Sample Site RIGHT RADIAL ABG pH 7.36 ABG pCO2 35 ABG pO2 139 H ABG HCO3 19.2 L ABG Total CO2 20.3 L ABG O2 Saturation 98 ABG Base Excess -5.6 L John Test POSITIVE Respiration Rate 16 O2 Delivery Device VENTILATOR Vent Mode ACCESSED/CONTROL FiO2 100.00 Tidal Volume 450 PEEP 5 Sodium Potassium Chloride Carbon Dioxide Anion Gap BUN Creatinine Estimated GFR (MDRD) Glucose Calcium Total Bilirubin AST ALT Alkaline Phosphatase Ammonia 71.7 H Total Protein Albumin Globulin Albumin/Globulin Ratio Lipase TSH Urine Color Urine Clarity Urine pH Ur Specific [place] Urine Protein Urine Glucose (UA) Urine Ketones Urine Occult Blood Urine Nitrite Urine Bilirubin Urine Urobilinogen Ur Leukocyte Esterase Ur Microscopic Review Urine Culture Comments Urine HCG, Qual Last Dose Date Last Dose Time Salicylates Urine Opiates Screen Ur Oxycodone Screen Urine Methadone Screen Ur Propoxyphene Screen Acetaminophen Ur Barbiturates Screen Valproic Acid Ur Tricyclics Screen Ur Phencyclidine Scrn Ur Amphetamine Screen U Methamphetamines Scrn U Benzodiazepines Scrn Urine Cocaine Screen U Cannabinoids Screen Ethyl Alcohol - Rads (name of study) chest xray Radiology: Prelim report reviewed (Congested appearance bilaterally consistent with likely some edema. Endotracheal tube is high above the clavicles so can be inserted 2 cm and we will get a repeat x-ray), See rad report PD MEDICAL DECISION MAKING - ED course Complexity details: considered differential (Critically ill patient with mixed drug overdose and likely alcohol as well. The overdose medications include thyroid, S-Citalopram, bupropion, and Depakote. Will contact poison control as well.), d/w patient, d/w [employer] product consultant (Poison control consulted. They suggested dialysis at a Depakote level over 800 or significant clinical problems. Watch for seizure activity from the bupropion. Watch for hyperthermia from the serotonin and Depakote effects. Regular EKGs for QT prolongation changes. Normal pressure support etc.) - Critical Care Time(min): 50 Time Includes: Direct patient care, Reassess patient, Document care, Medical consult Data interpretation: Labs, ABG, CXR Procedures excluded from critical care time: EKG Departure - Departure Disposition: 66 [facility] DC/Xfer Clinical Impression: Suicide attempt by multiple drug overdose Qualifiers: Encounter type: initial encounter Qualified Code(s): T50.902A - Poisoning by unspecified drugs, medicaments and biological substances, intentional self-harm, initial encounter Altered mental status Qualifiers: Altered mental status type: coma Coma depth: [place] coma 3-8 Coma timing: in the field (EMT or ambulance) Qualified Code(s): R40.2431 - Nelson coma scale score 3-8, in the field [EMT or ambulance] Hypotension Qualifiers: Hypotension type: hypotension due to drug Qualified Code(s): I95.2 - Hypotension due to drugs Condition: Serious Record reviewed to determine appropriate education?: Yes
[2019-04-01 08:39] LABS: BASOPHILS % (AUTO) 0.9 %; EOSINOPHILS % (AUTO) 0.2 %; HGB - HEMOGLOBIN 10.5 g/dL (12.0-16.0); LYMPHOCYTES % (AUTO) 21.7 %; MEAN CORPUSCULAR HEMOGLOBIN 29.7 pg (27.0-31.0); MEAN CORPUSCULAR VOLUME 92.9 fL (81.0-99.0); MEAN PLATELET VOLUME 11.4 fL (7.9-10.8); MONOCYTES # (AUTO) 0.2 10^3/uL (0.0-1.0); MONOCYTES % (AUTO) 4.4 %; NEUTROPHILS # (AUTO) 3.3 10^3/uL (1.5-6.6); NEUTROPHILS % (AUTO) 71.9 %; PLT - PLATELET COUNT 157 10^3/uL (130-450); RED BLOOD COUNT 3.53 10^6/uL (4.20-5.40); RED CELL DISTRIBUTION WIDTH 13.5 % (12.0-15.0); WHITE BLOOD COUNT 4.6 x10^3/uL (4.8-10.8)
[2019-04-01 08:56] LABS: ACETAMINOPHEN < 10 ug/mL (10-30); ALBUMIN 3.1 g/dL (3.2-5.5); ALBUMIN/GLOBULIN RATIO 1.2 (1.0-2.2); ALKALINE PHOSPHATASE 47 IU/L (42-121); ALT ALANINE AMINOTRANSFERASE 14 IU/L (10-60); AST ASPARTATE AMINOTRANSFERASE 20 IU/L (10-42); BILIRUBIN,TOTAL 0.4 mg/dL (0.2-1.0); BUN - BLOOD UREA NITROGEN 15 mg/dL (6-20); CALCIUM 7.7 mg/dL (8.5-10.3); CARBON DIOXIDE - CO2 23 mmol/L (21-32); CHLORIDE 104 mmol/L (101-111); CREATININE 1.5 mg/dL (0.4-1.0); GFR - MDRD 35 (>89); GLUCOSE 139 mg/dL (70-100); LIPASE 50 U/L (22-51); SALICYLATE < 6.0 mg/dL; SODIUM 140 mmol/L (135-145); TOTAL PROTEIN 5.7 g/dL (6.7-8.2)
[2019-04-01] MEDS ORDERED: MAGNESIUM SULFATE 2 GRAM 2 GM/50 ML BAG IV ONE (09:00)
[2019-04-01] MEDS ORDERED: CALCIUM GLUCONATE 1,000 MG in SODIUM CHLORIDE 0.9% 50 ML IV STA (09:01)
[2019-04-01 09:02] LABS: MUDS CUTOFF CONCENTRATIONS CUTOFF CONC BELOW:
[2019-04-01 09:03] LABS: ABG HCO3 19.2 mmol/L (22.0-26.0); ABG PCO2 35 mmHg (34-45); ABG PH 7.36 (7.35-7.45); ABG PO2 139 mmHg (80-100)
[2019-04-01 09:04] LABS: ABG BASE EXCESS -5.6 mmol/L (-2.0-3.0); ABG OXYGEN SATURATION 98 % (94-98); ABG TCO2 20.3 MMOL/L (21.0-29.0); ALLEN TEST POSITIVE
--- NOTE | 2019-04-01 09:05 | XRAY Report ---
Reason: overdose; intubated Procedure Date: 04/01/2019 Accession Number: [id number] / [id number] Procedure: XR - Chest 1 View X-Ray CPT Code: 02953 FULL RESULT: EXAM: CHEST RADIOGRAPHY EXAM DATE: 04/01/2019 08:47 AM. CLINICAL HISTORY: Overdose; intubated. COMPARISON: CHEST 2 VIEW 07/24/2018 8:41 AM. TECHNIQUE: 1 view. FINDINGS: Lungs/Pleura: Low lung volumes. Probable mild bibasal atelectasis. Similar left costophrenic sulcus blunting which may relate to pleural scarring, as before. No significant pleural effusion or evidence of pneumothorax. Central pulmonary bronchovascular crowding and congestion. Mediastinum: Heart and mediastinal contours are otherwise unremarkable. Other: ET tube tip 5.6 cm above the kassie. Enteric tube terminates below diaphragm, tip excluded from the [id number]. IMPRESSION: 1. ET tube terminates 5.6 cm above the kassie. 2. Low lung volumes with probable basal atelectasis. RADIA
[2019-04-01 09:18] LABS: BILIRUBIN,URINE NEGATIVE (NEGATIVE); GLUCOSE, URINE (UA) NEGATIVE (NEGATIVE); KETONES,URINE (UA) NEGATIVE (NEGATIVE); LEUKOCYTE ESTERASE, URINE NEGATIVE (NEGATIVE); NITRITE,URINE NEGATIVE (NEGATIVE); OCCULT BLOOD,URINE TRACE-INTA (NEGATIVE); PH,URINE 5.5 PH (5.0-7.5); PROTEIN,URINE NEGATIVE (NEGATIVE); UROBILINOGEN,URINE 0.2 (NORMAL) E.U./dL (NORMAL)
[2019-04-01 09:19] LABS: CLARITY,URINE CLEAR (CLEAR); HCG UR QUAL NEGATIVE
[2019-04-01 09:25] LABS: VALPROIC ACID (DEPAKOTE) 345.9 ug/mL
[2019-04-01 09:30] LABS: AMPHETAMINE SCREEN,URINE NEGATIVE (NEGATIVE); BENZODIAZEPINES SCREEN, URINE NEGATIVE (NEGATIVE); COCAINE SCREEN URINE NEGATIVE (NEGATIVE); METHADONE SCREEN, URINE NEGATIVE (NEGATIVE); METHAMPHETAMINES SCREEN, URINE NEGATIVE (NEGATIVE); OPIATE SCREEN, URINE NEGATIVE (NEGATIVE); OXYCODONE SCREEN, URINE NEGATIVE (NEGATIVE); PROPOXYPHENE SCREEN, URINE NEGATIVE (NEGATIVE); TRICYCLIC ANTIDEPRESSANT,URINE NEGATIVE (NEGATIVE)
--- NOTE | 2019-04-01 12:38 | HISTORY & PHYSICAL EXAMINATION ---
DATE OF SERVICE: 04/01/2019 Physician: Kareen Maki MD PRIMARY CARE PROVIDER: Tatiana Wiggins ADMITTING PROVIDER: Kareen Maki MD CHIEF COMPLAINT Intentional drug overdose with valproic acid, Gabapentin, Lexapro, Wellbutrin SR. HISTORY OF PRESENT ILLNESS: Patient has a bipolar illness with depressive disorder. She is on Depakote, Lexapro, and Wellbutrin. In the past, she has been tried on lithium, but it induced a tremor. She also has a comorbid condition of alcohol abuse, unknown amount. My history is obtained from the chart at this time. I have reviewed Xtract and Faction Skis. Patient is comatose and family is not available. With her alcohol abuse, she has not had any withdrawals or seizures. She has been seen in the emergency room several times for falling, acute intoxication, and falls, one of which resulted in a subdural hematoma occurring in 06/2017 that did not need surgical intervention. Treatment has been with long-term AA off and on, abstinence. She did try and kill herself in 12/2015, followed subsequently by an inpatient rehabilitation until 01/2016. 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 She got her stay sober and clean button this summer. It had been 2 years. For some reason, unclear what the impetus, she moved out from her apartment and roommates, and went to live a another couple. After that the went on a drinking binge with black out for 4 days. She was seen here in our ER then went [place] for Detox then she went back into rehabilitation. Apparently, she broke her contract according to what Dr. Sheehan says, was acutely intoxicated while there. She was discharged from rehabilitation on Monday, the . She was making arrangements to go to [facility], which is a half way house. She has no other place to live. The last time anybody noted her being normal was last night at 10:30 in the evening. She was checked on by the resident staff at 10:00, at 10:30, she spoke to family. They were making arrangements about moving some of her stuff in a truck. Then this morning, she was asleep, and when they tried to wake her up, she was unresponsive. She has an empty bottle of valproic acid. It is 250 mg tablets. She is supposed to have 3 a day on that bottle prescription for 180 tablets. That was filled on 03/20. So that would be 36 tablets less than 180 that was refilled. Estimated 144 valproic tablets were taken. Her Lexapro bottle is empty. Wellbutrin bottle is empty. Synthroid bottle still has some tablets in there and gabapentin bottle still has some tablets in there. On the way here via ambulance, she had respiratory depression and she was intubated in the field. She received vecuronium. She was triaged in the emergency room at 8:23 this morning. Since being in the emergency room, she has had an NG tube placed, EKG done, labs, IV fluids and a consultation with Poison Control. She has received calcium gluconate, Levophed temporarily, famotidine, magnesium, but no sedatives. This patient has still not woken up in spite of it being 11:15 in the morning upon her transfer to the ICU. Her family is on their way. She has a daughter who may be her POA. One of her best friends is with her. PAST MEDICAL HISTORY 1. Bipolar and depressive disorder as above. 2. Alcohol abuse as above. No documentation of alcoholic liver disease, cirrhosis or ascites. 3. She is G5, P2, AB3. Vaginal hysterectomy in 1987. Stress urinary incontinence resulted in a Mcmahon procedure with anterior repair approximately 1996. She had a redo anterior repair 07/2016. 4. Hypothyroidism. 5. Obesity with bariatric surgery in 1993. 6. Antecedent breast reduction and panniculectomy 1979. 7. Multiple orthopedic problems including right hip labral surgery 2012, left knee arthroscopic surgery in 1986, bilateral carpal tunnel syndrome releases 1983, right rotator cuff repair in the past, left shoulder bursitis and tendinitis resulted in tendinosis 11/2017. 9. Tonsillectomy and adenoidectomy. 10. Severe C7 stenosis with bilateral peripheral paresthesias. ALLERGIES: NO KNOWN DRUG ALLERGIES. SOCIAL HISTORY: Obtained from the medical record. She is . Smokes anywhere from 1/3 to 1/2 pack per day, has done so since approximately 2001. Alcohol abuse is unknown quantity at this time. 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 She has been clean and sober since 2016 when she went off the wagon this fall. She was fired from her current job and she was to verify today if she was going to get rehired today at her job at Diagnostic Imaging here at [facility]. There is no other history of recreational substance abuse with cocaine, heroin, LSD noted in her chart. FAMILY HISTORY: Mom was diagnosed with breast cancer at age 75. Her father is alive and well in his 80s. Sister is alive and well and she has 2 children. REVIEW OF SYSTEMS: Unobtainable at this time, patient is intubated. PHYSICAL EXAMINATION VITAL SIGNS: Temperature is 35, pulse is 74, blood pressure is 97/63, respirations 18, and she is 100% saturated on FiO2 of 30% on the ventilator. Currently, her settings at rate of 16, tidal volume 500, PEEP of 5, a pressure support of 10. GENERAL: She is a well-nourished, well-developed white female who looks older than her stated age. HEENT: Shows ET tube in mouth. Face is slack. Pupils are dilated and fixed with left pupil slightly larger. Sclerae nonicteric. [place], moist oral mucosa. Neck is supple. No JVD or bruits. LUNGS: Coarse upper airway sounds from her ET tube, there is no breathing above the vent. HEART: PMI is normally placed with a regular rate and rhythm. No murmurs, rubs or gallops. ABDOMEN: Soft, nondistended, hypoactive bowel sounds. No masses palpable. EXTREMITIES: Cool hands and feet. No clubbing, cyanosis or edema with intact dorsalis pedis pulses. NEUROLOGIC: Patient is unresponsive to deep stimuli, no eye opening at all. Babinski's are equivocal. At this point, a calculated Bartow coma scale of 3. LABORATORY DATA: CMP shows creatinine 1.5, GFR 35, glucose 139, calcium 7.7, ammonia level 71.7. CK 127. TSH is 0.9. White cell count is 4.6, hemoglobin 10.5, hematocrit 32.8. Platelets 157. Blood gas on the vent when tidal volume was 450 and rate 16 and assist control, FiO2 was 100% showed a pH of 7.36, pCO2 35, pO2 139. Base excess -5.6. Her anion gap is 13 and normal. Chest x-ray shows low lung volumes with probable basal atelectasis and the ET tube is 5.6 cm above the kassie. ASSESSMENT PLAN 1. Acute respiratory failure with hypoxia, cause is problem #2. Plan: Inpatient admission to ICU Attestation that the patient will be discharged within 96 hours. Patient will remain intubated on full vent support until she wakes up. If she does not wake up, we will have further discussions with her daughter and suppose POA about advanced care planning. 2. Intentional drug overdose. If she recovers, we will consult with social work and probable CDMHP. 3. Valproic acid toxicity. Poison Control has already been consulted. Valproic acid is associated with respiratory depression, hypertension, hyperthermia, hyperammonemia, anion gap metabolic acidosis, hyperosmolality, hypernatremia, hypocalcemia, elevated liver enzymes and prolonged QT. It is also associated with cerebral edema. On the basis of her Bartow coma scale with documented toxicity and elevated ammonia concentration she warrants a CT of the head to evaluate for possible herniation. She does not have any focal neurological deficits. Repeat Valproic acid levels, EKG and ammonia later today. 4. Wellbutrin toxicity. Seizure precautions for the next 24 hours. Since overdose was anywhere from 10:30 last night to early am, she will need precautions until after 10 pm tonight until tomorrow morning. 5. History of alcohol abuse. She did have use during her rehab stay at [facility] in [place], [place] but not continuous. Alcohol level is not present on tox screen. No bannana bag or CIWA protocol for now. Will monitor. 5. FULL CODE STATUS. 6. Deep vein thrombosis prophylaxis with Lovenox. TD: 04/01/2019 11:30 MTDD
[2019-04-01] MEDS ORDERED: MIDAZOLAM DRIP 50 MG/100 ML BAG IV SCH (13:00)
--- NOTE | 2019-04-01 15:46 | CT Report ---
Reason: valproic acid od w coma Procedure Date: 04/01/2019 Accession Number: [id number] / [id number] Procedure: CT - HEAD WO CPT Code: FULL RESULT: EXAM: CT HEAD EXAM DATE: 04/01/2019 02:42 PM. CLINICAL HISTORY: Valproic acid od w coma. COMPARISON: HEAD W/O 09/03/2017 8:57 PM. TECHNIQUE: Multiaxial CT images were obtained from the foramen magnum to the vertex. Reformats: Sagittal and coronal. IV contrast: None. In accordance with CT protocol optimization, one or more of the following dose reduction techniques were utilized for this exam: automated exposure control, adjustment of mA and/or KV based on patient size, or use of iterative reconstructive technique. FINDINGS: Parenchyma: No intraparenchymal hemorrhage. No evidence of mass, midline shift, or CT findings of infarction. Otto-white differentiation is distinct. Extraaxial Spaces: Normal for age. No subdural or epidural collections identified. Ventricles: Normal in size and position. Sinuses and Orbits: Imaged paranasal sinuses, orbits, and mastoids show no significant abnormality. Bones: No evidence of fracture or calvarial defect. Other: None. IMPRESSION: No significant intracranial abnormality. RADIA
[2019-04-01 16:21] LABS: VALPROIC ACID (DEPAKOTE) 135.1 ug/mL
[2019-04-01 16:55] LABS: ABG HCO3 20.7 mmol/L (22.0-26.0); ABG PCO2 34 mmHg (34-45); ABG PH 7.39 (7.35-7.45)
[2019-04-01 16:56] LABS: ABG OXYGEN SATURATION 100 % (94-98); ALLEN TEST POSITIVE
[2019-04-01 16:58] LABS: ABG PO2 173 mmHg (80-100)
[2019-04-01] MEDS: SODIUM CHLORIDE FLUSH 0.9% 10 ML SYRINGE IVP SCH (17:23)
[2019-04-01] MEDS: LORazepam 2 MG/ML VIAL IVP PRN ×2 (18:18→20:14)
[2019-04-01] MEDS: SODIUM CHLORIDE FLUSH 0.9% 10 ML SYRINGE IVP PRN (20:15)
[2019-04-01] MEDS: SODIUM CHLORIDE 0.9% 1,000 ML IV SCH (20:46)
[2019-04-01] MEDS: CHLORHEXIDINE GLUCONATE 15 ML UDC PO SCH (21:17)
[2019-04-02] MEDS: SODIUM CHLORIDE FLUSH 0.9% 10 ML SYRINGE IVP SCH ×4 (01:31→18:02)
[2019-04-02 04:45] LABS: BASOPHILS % (AUTO) 0.2 %; EOSINOPHILS % (AUTO) 0.1 %; HGB - HEMOGLOBIN 10.4 g/dL (12.0-16.0); LYMPHOCYTES # (AUTO) 0.9 10^3/uL (1.5-3.5); MEAN CORPUSCULAR HEMOGLOBIN 28.9 pg (27.0-31.0); MEAN CORPUSCULAR VOLUME 93.1 fL (81.0-99.0); MEAN PLATELET VOLUME 10.9 fL (7.9-10.8); MONOCYTES # (AUTO) 0.8 10^3/uL (0.0-1.0); MONOCYTES % (AUTO) 6.8 %; NEUTROPHILS # (AUTO) 9.4 10^3/uL (1.5-6.6); NEUTROPHILS % (AUTO) 84.6 %; PLT - PLATELET COUNT 161 10^3/uL (130-450); RED CELL DISTRIBUTION WIDTH 14.2 % (12.0-15.0); WHITE BLOOD COUNT 11.1 x10^3/uL (4.8-10.8)
[2019-04-02] MEDS: SODIUM CHLORIDE 0.9% 1,000 ML IV SCH ×3 (04:51→20:50)
[2019-04-02 04:54] LABS: CREATININE 0.8 mg/dL (0.4-1.0)
[2019-04-02 05:46] LABS: ALBUMIN 3.3 g/dL (3.2-5.5); MAGNESIUM 2.4 mg/dL (1.7-2.8); PHOSPHORUS 4.2 mg/dL (2.5-4.6)
[2019-04-02] MEDS: LORazepam 2 MG/ML VIAL IVP PRN ×5 (06:02→23:53)
[2019-04-02] MEDS: SODIUM CHLORIDE FLUSH 0.9% 10 ML SYRINGE IVP PRN (06:02)
[2019-04-02] MEDS ORDERED: PANTOPRAZOLE 40 MG VIAL IVP SCH (07:00)
--- NOTE | 2019-04-02 08:40 | XRAY Report ---
Reason: ETT position Procedure Date: 04/01/2019 Accession Number: [id number] / [id number] Procedure: XR - Chest for Line Placement CPT Code: FULL RESULT: EXAM: CHEST RADIOGRAPHY EXAM DATE: 04/01/2019 09:29 AM. CLINICAL HISTORY: ETT position. COMPARISON: 8:26 AM same day. TECHNIQUE: 1 view. FINDINGS: Devices: ET tube 4.6 cm above the kassie. Enteric tube with distal tip at the GE junction and distal side-port in the lower esophagus. Lungs/Pleura: Low lung volumes with central vascular prominence and bibasilar opacities, left greater than right. No pneumothorax or significant pleural effusion. Mediastinum: Stable cardiomediastinal silhouette, accentuated by low lung volumes. Other: No acute osseous findings. IMPRESSION: 1. Satisfactory ET tube position 4.6 cm above the kassie. 2. Enteric tube terminates near the GE junction was distal side-port in the lower esophagus. 3. No other significant change. RADIA
[2019-04-02] MEDS: ENOXAPARIN 40 MG/0.4 ML SYRINGE SUBQ SCH (08:52)
[2019-04-02] MEDS: CHLORHEXIDINE GLUCONATE 15 ML UDC PO SCH ×2 (09:00→21:11)
--- NOTE | 2019-04-02 16:04 | PROVIDER PROGRESS NOTE ---
Subjective - Prog Note Date Prog Note Date: 04/02/19 Prog Note Time: 16:02 - Subjective Pt reports feeling: Improved Subjective: Between yesterday and today, have extubated the patient Since she gradually woke up, and was awake. Blood gases showed good oxygenation and no hypercarbia.. Her EKG has shown a QT that is stable. CT of the brain was negative for herniation. Since extubation, patient is rambling, fidgeting, mumbling conversation. Is able to follow orders and be prompted but needs multiple cues. Has needed a couple of doses of Ativan here and there. Current Medications - Current Medications Current Medications: Active Medications Chlorhexidine Gluconate (Peridex) 15 ml PO BID [facility] Last Admin: 04/02/19 09:00 Dose: 15 ml Enoxaparin Sodium (Lovenox) 40 mg SUBQ DAILY [facility] Last Admin: 04/02/19 08:52 Dose: 40 mg Sodium Chloride (Normal Saline 0.9%) 1,000 mls @ 125 mls/hr IV .Q8H [facility] Last Infusion: 04/02/19 15:32 Dose: 125 mls/hr Lorazepam (Ativan Inj (Vial)) 1 mg IVP Q2H PRN PRN Reason: Agitation Last Admin: 04/02/19 15:53 Dose: 1 mg Sodium Chloride (Normal Saline Flush 0.9%) 10 ml IVP 0100,0900,1700 [facility] Last Admin: 04/02/19 11:25 Dose: 10 ml Sodium Chloride (Normal Saline Flush 0.9%) 10 ml IVP PRN PRN PRN Reason: NEEDED PER PROVIDER ORDERS Last Admin: 04/02/19 06:02 Dose: 10 ml Divalproex Sodium [Depakote] 750 mg PO BID 11/20/15 Escitalopram [Lexapro] 20 mg PO DAILY 11/20/15 Levothyroxine [Synthroid] 200 mcg PO QDAC 11/20/15 Gabapentin 600 mg PO BID 03/30/16 buPROPion [Wellbutrin Sr] 150 mg PO BID 04/01/19 Objective - Vital Signs/Intake & Output Reviewed Vital Signs: Yes Vital Signs: Vital Signs x48h Temp Pulse Resp BP Pulse Ox 04/02/19 14:56 37.6 C H 72 20 102/58 L 96 09/17/19 13:59 37.8 C H 77 20 113/61 95 04/02/19 13:00 38 C H 76 20 111/59 L 95 04/02/19 11:57 38.1 C H 80 19 105/89 H 96 04/02/19 11:09 81 90/72 04/02/19 11:00 38.1 C H 78 23 103/68 96 04/02/19 10:00 38 C H 77 20 103/68 96 04/02/19 09:00 37.9 C H 79 21 95/67 98 Intake & Output: Intake & Output 03/30/19 03/31/19 04/01/19 04/02/19 23:59 23:59 23:59 23:59 Intake Total 2249.955 2895.416 Output Total 1270 1110 Balance 991.136 2839.416 - Objective General Appearance: positive: No acute distress, Other (Middle-aged white female, well-nourished, well-developed, nonstop movement with picking of sheets, picking of IVs, picking of her gown. Speaks to people that are not there. Has ongoing conversation with her ex- who is not here. Does recognize her friends when they walk in. Did introduce the nurse to them at one point correctly.) Eyes Bilateral: positive: PERRL ENT: positive: Pharynx nml Neck: positive: No JVD. negative: Stiff neck, Carotid bruit Respiratory: positive: Chest non-tender. negative: Wheezes, Rales, Rhonchi Cardiovascular: positive: Regular rate & rhythm. negative: Systolic murmur, Ga llop/S4, Friction rub Abdomen: positive: Non-tender, No organomegaly, Nml bowel sounds, No distention Skin: positive: Warm, Dry Neurologic/Psychiatric: positive: Disoriented to person, Disoriented to place, Disoriented to time, Slurred/abnml speech. negative: Motor nml (fine random diffuse tremors, occasional jerking twitch of shoulders and body, rambling nonsensical speech with people who aren't there) - Lab Results Fish Bones: 04/02/19 04:37 04/02/19 04:37 Other Labs: Lab Results x24hrs 04/02/19 04/02/19 04/02/19 Range/Units 04:37 04:37 04:37 WBC (4.8-10.8) x10^3/uL RBC (4.20-5.40) 10^6/uL Hgb (12.0-16.0) g/dL Hct (37.0-47.0) % MCV (81.0-99.0) fL MCH (27.0-31.0) pg MCHC (32.0-36.0) g/dL RDW (12.0-15.0) % Plt Count (130-450) 10^3/uL MPV (7.9-10.8) fL Neut # (Auto) (1.5-6.6) 10^3/uL Lymph # (Auto) (1.5-3.5) 10^3/uL [place] # (Auto) (0.0-1.0) 10^3/uL Eos # (Auto) (0.0-0.7) 10^3/uL Baso # (Auto) (0.0-0.1) 10^3/uL Absolute Nucleated RBC x10^3/uL Nucleated RBC % /100WBC Bld Gas Analysis Time Sample Site ABG pH (7.35-7.45) ABG pCO2 (34-45) mmHg ABG pO2 (80-100) mmHg ABG HCO3 (22.0-26.0) mmol/L ABG Total CO2 (21.0-29.0) MMOL/L ABG O2 Saturation (94-98) % ABG Base Excess (-2.0-3.0) mmol/L John Test O2 Delivery Device FiO2 PEEP cmH2O Pressure Support Vent cmH2O Sodium 144 (135-145) mmol/L Potassium 4.1 (3.5-5.0) mmol/L Chloride 109 (101-111) mmol/L Carbon Dioxide 25 (21-32) mmol/L Anion Gap 10.0 (6-13) BUN 19 (6-20) mg/dL Creatinine 0.8 (0.4-1.0) mg/dL Estimated GFR (MDRD) 73 L (>89) Glucose 104 H (70-100) mg/dL Calcium 8.0 L (8.5-10.3) mg/dL Phosphorus 4.2 (2.5-4.6) mg/dL Magnesium 2.4 (1.7-2.8) mg/dL Ammonia 21.6 (7-35) umol/L Albumin 3.3 (3.2-5.5) g/dL Last Dose Date Last Dose Time Valproic Acid ug/mL 04/02/19 04/01/19 04/01/19 Range/Units 04:37 16:35 16:00 WBC 11.1 H (4.8-10.8) x10^3/uL RBC 3.60 L (4.20-5.40) 10^6/uL Hgb 10.4 L (12.0-16.0) g/dL Hct 33.5 L (37.0-47.0) % MCV 93.1 (81.0-99.0) fL MCH 28.9 (27.0-31.0) pg MCHC 31.0 L (32.0-36.0) g/dL RDW 14.2 (12.0-15.0) % Plt Count 161 (130-450) 10^3/uL MPV 10.9 H (7.9-10.8) fL Neut # (Auto) 9.4 H (1.5-6.6) 10^3/uL Lymph # (Auto) 0.9 L (1.5-3.5) 10^3/uL [place] # (Auto) 0.8 (0.0-1.0) 10^3/uL Eos # (Auto) 0.0 (0.0-0.7) 10^3/uL Baso # (Auto) 0.0 (0.0-0.1) 10^3/uL Absolute Nucleated RBC 0.00 x10^3/uL Nucleated RBC % 0.0 /100WBC Bld Gas Analysis Time 1635 Sample Site RIGHT RADIAL ABG pH 7.39 (7.35-7.45) ABG pCO2 34 (34-45) mmHg ABG pO2 173 H* (80-100) mmHg ABG HCO3 20.7 L (22.0-26.0) mmol/L ABG Total CO2 22.0 (21.0-29.0) MMOL/L ABG O2 Saturation 100 H (94-98) % ABG Base Excess -4.0 L (-2.0-3.0) mmol/L John Test POSITIVE O2 Delivery Device C-PAP FiO2 30.00 PEEP 5 cmH2O Pressure Support Vent 10 cmH2O Sodium (135-145) mmol/L Potassium (3.5-5.0) mmol/L Chloride (101-111) mmol/L Carbon Dioxide (21-32) mmol/L Anion Gap (6-13) BUN (6-20) mg/dL Creatinine (0.4-1.0) mg/dL Estimated GFR (MDRD) (>89) Glucose (70-100) mg/dL Calcium (8.5-10.3) mg/dL Phosphorus (2.5-4.6) mg/dL Magnesium (1.7-2.8) mg/dL Ammonia 15.3 (7-35) umol/L Albumin (3.2-5.5) g/dL Last Dose Date Last Dose Time Valproic Acid ug/mL 04/01/19 Range/Units 16:00 WBC (4.8-10.8) x10^3/uL RBC (4.20-5.40) 10^6/uL Hgb (12.0-16.0) g/dL Hct (37.0-47.0) % MCV (81.0-99.0) fL MCH (27.0-31.0) pg MCHC (32.0-36.0) g/dL RDW (12.0-15.0) % Plt Count (130-450) 10^3/uL MPV (7.9-10.8) fL Neut # (Auto) (1.5-6.6) 10^3/uL Lymph # (Auto) (1.5-3.5) 10^3/uL [place] # (Auto) (0.0-1.0) 10^3/uL Eos # (Auto) (0.0-0.7) 10^3/uL Baso # (Auto) (0.0-0.1) 10^3/uL Absolute Nucleated RBC x10^3/uL Nucleated RBC % /100WBC Bld Gas Analysis Time Sample Site ABG pH (7.35-7.45) ABG pCO2 (34-45) mmHg ABG pO2 (80-100) mmHg ABG HCO3 (22.0-26.0) mmol/L ABG Total CO2 (21.0-29.0) MMOL/L ABG O2 Saturation (94-98) % ABG Base Excess (-2.0-3.0) mmol/L John Test O2 Delivery Device FiO2 PEEP cmH2O Pressure Support Vent cmH2O Sodium (135-145) mmol/L Potassium (3.5-5.0) mmol/L Chloride (101-111) mmol/L Carbon Dioxide (21-32) mmol/L Anion Gap (6-13) BUN (6-20) mg/dL Creatinine (0.4-1.0) mg/dL Estimated GFR (MDRD) (>89) Glucose (70-100) mg/dL Calcium (8.5-10.3) mg/dL Phosphorus (2.5-4.6) mg/dL Magnesium (1.7-2.8) mg/dL Ammonia (7-35) umol/L Albumin (3.2-5.5) g/dL Last Dose Date UNKNOWN Last Dose Time UNKNOWN Valproic Acid 135.1 ug/mL ABX Reporting Has patient been on IV antibiotics over the past 48 hours?: No Assessment/Plan - Problem List (1) Acute respiratory failure with hypoxia Impression: resolved. patient extubated yesterday afternoon. currently minimal O2 need. (2) Suicide attempt by multiple drug overdose Impression: she is hemodynamically stable with less and less fear of drug effect now that it's been >24 hours, but she is still with cognitive deficits and myoclonic jerks. will need to be monitored further until this resolved to be able to be evaluated for suicide attempt. Transfer to Med Surg status. Qualifiers: Encounter type: sequela Qualified Code(s): T50.902S - Poisoning by unspecified drugs, medicaments and biological substances, intentional self-harm, sequela (3) Valproic acid toxicity Impression: resolved. Some tremors as residual, pupils no can accomodate and dilate. (4) Poisoning by selective serotonin reuptake inhibitor Impression: resolved. no seizures. Qualifiers: Encounter type: sequela
[2019-04-03] MEDS: SODIUM CHLORIDE FLUSH 0.9% 10 ML SYRINGE IVP SCH ×3 (00:13→16:03)
[2019-04-03] MEDS: LORazepam 2 MG/ML VIAL IVP PRN ×2 (02:14→07:56)
[2019-04-03] MEDS: SODIUM CHLORIDE 0.9% 1,000 ML IV SCH ×3 (04:12→20:14)
[2019-04-03 05:04] LABS: BASOPHILS % (AUTO) 0.4 %; EOSINOPHILS % (AUTO) 0.4 %; LYMPHOCYTES # (AUTO) 0.7 10^3/uL (1.5-3.5); LYMPHOCYTES % (AUTO) 7.4 %; MEAN CORPUSCULAR HEMOGLOBIN 29.4 pg (27.0-31.0); MEAN CORPUSCULAR HGB CONC 31.6 g/dL (32.0-36.0); MEAN CORPUSCULAR VOLUME 92.9 fL (81.0-99.0); MEAN PLATELET VOLUME 11.4 fL (7.9-10.8); MONOCYTES # (AUTO) 0.5 10^3/uL (0.0-1.0); MONOCYTES % (AUTO) 5.5 %; NEUTROPHILS # (AUTO) 8.5 10^3/uL (1.5-6.6); NEUTROPHILS % (AUTO) 85.6 %; PLT - PLATELET COUNT 119 10^3/uL (130-450); RED CELL DISTRIBUTION WIDTH 13.7 % (12.0-15.0); WHITE BLOOD COUNT 9.9 x10^3/uL (4.8-10.8)
[2019-04-03 05:06] LABS: CALCIUM 8.5 mg/dL (8.5-10.3); CREATININE 0.5 mg/dL (0.4-1.0)
[2019-04-03] MEDS: ENOXAPARIN 40 MG/0.4 ML SYRINGE SUBQ SCH (08:07)
[2019-04-03] MEDS: CHLORHEXIDINE GLUCONATE 15 ML UDC PO SCH ×2 (08:09→20:13)
--- NOTE | 2019-04-03 09:01 | PROVIDER PROGRESS NOTE ---
Subjective - Prog Note Date Prog Note Date: 04/03/19 Prog Note Time: 09:01 - Subjective Subjective: she is now out of ICU and on Med Surg. Doesn't seem to need 1:1 since she is confused, mumbling, hallucinating. Easy to prompt. Current Medications - Current Medications Current Medications: Active Medications Chlorhexidine Gluconate (Peridex) 15 ml PO BID [facility] Last Admin: 04/03/19 08:09 Dose: Not Given Enoxaparin Sodium (Lovenox) 40 mg SUBQ DAILY [facility] Last Admin: 04/03/19 08:07 Dose: 40 mg Sodium Chloride (Normal Saline 0.9%) 1,000 mls @ 125 mls/hr IV .Q8H [facility] Last Admin: 04/03/19 04:12 Dose: 125 mls/hr Lorazepam (Ativan Inj (Vial)) 1 mg IVP Q2H PRN PRN Reason: Agitation Last Admin: 04/03/19 07:56 Dose: 1 mg Sodium Chloride (Normal Saline Flush 0.9%) 10 ml IVP 0100,0900,1700 [facility] Last Admin: 04/03/19 08:08 Dose: 10 ml Sodium Chloride (Normal Saline Flush 0.9%) 10 ml IVP PRN PRN PRN Reason: NEEDED PER PROVIDER ORDERS Last Admin: 04/02/19 06:02 Dose: 10 ml Divalproex Sodium [Depakote] 750 mg PO BID 11/20/15 Escitalopram [Lexapro] 20 mg PO DAILY 11/20/15 Levothyroxine [Synthroid] 200 mcg PO QDAC 11/20/15 Gabapentin 600 mg PO BID 03/30/16 buPROPion [Wellbutrin Sr] 150 mg PO BID 04/01/19 Objective - Vital Signs/Intake & Output Reviewed Vital Signs: Yes Vital Signs: Vital Signs x48h Temp Pulse Resp BP Pulse Ox 04/03/19 07:22 37.6 C H 76 20 141/75 H 90 L 04/03/19 03:20 37.2 C 72 18 131/61 H 93 Intake & Output: Intake & Output 03/31/19 04/01/19 04/02/19 04/03/19 23:59 23:59 23:59 23:59 Intake Total 2249.955 3849.583 920.833 Output Total 1270 1780 900 Balance 554.786 0042.583 20.833 - Objective General Appearance: positive: No acute distress, Other (sleeping and wakes to my voice, but mumbling. Doesn't know where she is) Eyes Bilateral: positive: PERRL, EOMI ENT: positive: Pharynx nml Neck: positive: No JVD. negative: Stiff neck, Carotid bruit Respiratory: positive: Chest non-tender. negative: Wheezes, Rales, Rhonchi Cardiovascular: positive: Regular rate & rhythm. negative: JVD present, Systolic murmur, Gallop/S4 Abdomen: positive: Non-tender, No organomegaly, Nml bowel sounds, No distention Skin: positive: Warm, Dry Extremities: positive: Non-tender, Full ROM Neurologic/Psychiatric: positive: Disoriented to person, Disoriented to place, Disoriented to time, Slurred/abnml speech. negative: CN's nml (2-12) (new left disconjugate gaze.), Motor nml (uncoordinated movement) - Lab Results Fish Bones: 04/03/19 04:40 04/03/19 04:40 Other Labs: Lab Results x24hrs 04/03/19 04/03/19 Range/Units 04:40 04:40 WBC 9.9 (4.8-10.8) x10^3/uL RBC 3.40 L (4.20-5.40) 10^6/uL Hgb 10.0 L (12.0-16.0) g/dL Hct 31.6 L (37.0-47.0) % MCV 92.9 (81.0-99.0) fL MCH 29.4 (27.0-31.0) pg MCHC 31.6 L (32.0-36.0) g/dL RDW 13.7 (12.0-15.0) % Plt Count 119 L (130-450) 10^3/uL MPV 11.4 H (7.9-10.8) fL Neut # (Auto) 8.5 H (1.5-6.6) 10^3/uL Lymph # (Auto) 0.7 L (1.5-3.5) 10^3/uL [place] # (Auto) 0.5 (0.0-1.0) 10^3/uL Eos # (Auto) 0.0 (0.0-0.7) 10^3/uL Baso # (Auto) 0.0 (0.0-0.1) 10^3/uL Absolute Nucleated RBC 0.00 x10^3/uL Nucleated RBC % 0.0 /100WBC Sodium 139 (135-145) mmol/L Potassium 4.0 (3.5-5.0) mmol/L Chloride 103 (101-111) mmol/L Carbon Dioxide 27 (21-32) mmol/L Anion Gap 9.0 (6-13) BUN 12 (6-20) mg/dL Creatinine 0.5 (0.4-1.0) mg/dL Estimated GFR (MDRD) 126 (>89) Glucose 96 (70-100) mg/dL Calcium 8.5 (8.5-10.3) mg/dL Assessment/Plan - Problem List (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 Not always aware of where she is. The myoclonic jerking has stopped. Still with occasional hallucination. Anoxic brain injury vs. sequelae of drug effect Plan: ask for rehab eval and OT eval and see if she is appropriate for neuro rehab. (2) Acute respiratory failure with hypoxia Impression: resolved. patient extubated yesterday afternoon. currently minimal O2 need. (3) Suicide attempt by multiple drug overdose Impression: she is hemodynamically stable with less and less fear of drug effect now that it's been >24 hours, but she is still with cognitive deficits and myoclonic jerks. will need to be monitored further until this resolved to be able to be evaluated for suicide attempt. Transfer to Med Surg status. Qualifiers: Encounter type: sequela Qualified Code(s): T50.902S - Poisoning by unspecified drugs, medicaments and biological substances, intentional self-harm, sequela (4) Valproic acid toxicity resolved Impression: resolved. Some tremors as residual, pupils no can accomodate and dilate. She has new disconjugate left gaze. CT of head was normal and no herniation. She may need neuro consult. Will call for quick phone question to consult and see. (5) Poisoning by selective serotonin reuptake inhibitor resolved Impression: resolved. no seizures. Qualifiers: Encounter type: sequela
[2019-04-04] MEDS ORDERED: ACETAMINOPHEN 325 MG TABLET PO PRN (00:49)
[2019-04-04] MEDS: IBUPROFEN 400 MG TABLET PO PRN ×3 (01:16→21:05)
[2019-04-04] MEDS: SODIUM CHLORIDE FLUSH 0.9% 10 ML SYRINGE IVP SCH ×3 (02:22→17:01)
[2019-04-04] MEDS: SODIUM CHLORIDE 0.9% 1,000 ML IV SCH ×3 (04:16→14:44)
[2019-04-04 05:03] LABS: BASOPHILS % (AUTO) 0.4 %; EOSINOPHILS % (AUTO) 0.4 %; HGB - HEMOGLOBIN 9.8 g/dL (12.0-16.0); LYMPHOCYTES # (AUTO) 0.8 10^3/uL (1.5-3.5); LYMPHOCYTES % (AUTO) 8.4 %; MEAN CORPUSCULAR HEMOGLOBIN 29.9 pg (27.0-31.0); MEAN CORPUSCULAR HGB CONC 32.7 g/dL (32.0-36.0); MEAN CORPUSCULAR VOLUME 91.5 fL (81.0-99.0); MEAN PLATELET VOLUME 11.8 fL (7.9-10.8); MONOCYTES # (AUTO) 0.6 10^3/uL (0.0-1.0); NEUTROPHILS # (AUTO) 7.8 10^3/uL (1.5-6.6); NEUTROPHILS % (AUTO) 84.2 %; PLT - PLATELET COUNT 109 10^3/uL (130-450); RED BLOOD COUNT 3.28 10^6/uL (4.20-5.40); RED CELL DISTRIBUTION WIDTH 13.4 % (12.0-15.0); WHITE BLOOD COUNT 9.3 x10^3/uL (4.8-10.8)
[2019-04-04] MEDS: CHLORHEXIDINE GLUCONATE 15 ML UDC PO SCH (08:24)
[2019-04-04] MEDS: ENOXAPARIN 40 MG/0.4 ML SYRINGE SUBQ SCH (08:28)
--- NOTE | 2019-04-04 11:28 | PROVIDER PROGRESS NOTE ---
Subjective - Prog Note Date Prog Note Date: 04/04/19 Prog Note Time: 15:10 - Subjective Subjective: she has improved today in that more and more words strung together to make a sentence but has no memory. Keeps on repeating her questions. Able to stand with PT and get to bathroom. Current Medications - Current Medications Current Medications: Active Medications Enoxaparin Sodium (Lovenox) 40 mg SUBQ DAILY [facility] Last Admin: 04/04/19 08:28 Dose: 40 mg Sodium Chloride (Normal Saline 0.9%) 1,000 mls @ 85 mls/hr IV .[id number] [facility] Last Admin: 04/04/19 14:44 Dose: 85 mls/hr Ibuprofen (Motrin) 400 mg PO Q6HR PRN PRN Reason: PAIN Last Admin: 04/04/19 11:54 Dose: 400 mg Lorazepam (Ativan Inj (Vial)) 1 mg IVP Q2H PRN PRN Reason: Agitation Last Admin: 04/03/19 07:56 Dose: 1 mg Sodium Chloride (Normal Saline Flush 0.9%) 10 ml IVP 0100,0900,1700 [facility] Last Admin: 04/04/19 08:28 Dose: 10 ml Sodium Chloride (Normal Saline Flush 0.9%) 10 ml IVP PRN PRN PRN Reason: NEEDED PER PROVIDER ORDERS Last Admin: 04/02/19 06:02 Dose: 10 ml Divalproex Sodium [Depakote] 750 mg PO BID 11/20/15 Escitalopram [Lexapro] 20 mg PO DAILY 11/20/15 Levothyroxine [Synthroid] 200 mcg PO QDAC 11/20/15 Gabapentin 600 mg PO BID 03/30/16 buPROPion [Wellbutrin Sr] 150 mg PO BID 04/01/19 Objective - Vital Signs/Intake & Output Reviewed Vital Signs: Yes Vital Signs: Vital Signs x48h Temp Pulse Resp BP Pulse Ox 04/04/19 07:32 37.2 C 70 18 132/70 H 94 04/04/19 04:30 36.8 C 55 L 16 142/74 H 92 Intake & Output: Intake & Output 04/01/19 04/02/19 04/03/19 04/04/19 23:59 23:59 23:59 23:59 Intake Total 9499.955 3849.583 3901.249 1588.750 Output Total 1270 1780 1800 2600 Balance 548.211 3632.583 2101.249 -1011.250 - Objective General Appearance: positive: No acute distress, Alert (but still sleepy and would prefer to be in bed if we didn't get her up) Eyes Bilateral: positive: PERRL ENT: positive: Pharynx nml Neck: positive: No JVD. negative: Stiff neck, Carotid bruit Respiratory: positive: Chest non-tender. negative: Wheezes, Rales, Rhonchi Cardiovascular: positive: Regular rate & rhythm. negative: Gallop/S4, Friction rub Abdomen: positive: Non-tender, No organomegaly, Nml bowel sounds, No distention Skin: positive: Warm, Dry Extremities: positive: Non-tender, No pedal edema Neurologic/Psychiatric: positive: Disoriented to place, Disoriented to time, Slurred/abnml speech (still mumbles but much, much better sentence structure today). negative: Motor nml (ataxia. the jerking myoclonic movements stopped by yesterday) - Lab Results Fish Bones: 04/04/19 04:35 04/03/19 04:40 Other Labs: Lab Results x24hrs 04/04/19 Range/Units 04:35 WBC 9.3 (4.8-10.8) x10^3/uL RBC 3.28 L (4.20-5.40) 10^6/uL Hgb 9.8 L (12.0-16.0) g/dL Hct 30.0 L (37.0-47.0) % MCV 91.5 (81.0-99.0) fL MCH 29.9 (27.0-31.0) pg MCHC 32.7 (32.0-36.0) g/dL RDW 13.4 (12.0-15.0) % Plt Count 109 L (130-450) 10^3/uL MPV 11.8 H (7.9-10.8) fL Neut # (Auto) 7.8 H (1.5-6.6) 10^3/uL Lymph # (Auto) 0.8 L (1.5-3.5) 10^3/uL [place] # (Auto) 0.6 (0.0-1.0) 10^3/uL Eos # (Auto) 0.0 (0.0-0.7) 10^3/uL Baso # (Auto) 0.0 (0.0-0.1) 10^3/uL Absolute Nucleated RBC 0.00 x10^3/uL Nucleated RBC % 0.0 /100WBC Assessment/Plan - Problem List (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 Not always aware of where she is. Today she is more appropriate with speech but still disoriented for the most part. Occasionally does recognize where she is and asks how long she will be here. The myoclonic jerking has stopped. Still with occasional hallucination. Anoxic brain injury vs. sequelae of drug effect Plan: Physical therapy has noted an improvement from yesterday to today but doesn't think she will be able to participate in full ongoing neurorehab at an inpatient facility. So she recommends Rehab at SNF level to allow the patient to recover enough to then to go more intensive Neuro rehab. (2) Acute respiratory failure with hypoxia Impression: resolved. patient extubated yesterday afternoon. currently minimal O2 need. (3) Suicide attempt by multiple drug overdose Impression: she is hemodynamically stable with less and less fear of drug effect now that it's been >72 hours, but she is still with cognitive deficits and myoclonic jerks. She presented as encephalopathy with acute respiratory failure and hypoxia needing ventilator suppport. Transferred to [facility] status from ICU 04/02. Qualifiers: Encounter type: sequela Qualified Code(s): T50.902S - Poisoning by unspecified drugs, medicaments and biological substances, intentional self-harm, sequela (4) Valproic acid toxicity resolved Impression: resolved. Some tremors as residual, pupils now can accomodate and dilate. She has new disconjugate left gaze 04/03. CT of head was normal and no herniation. She may need neuro consult. Will call for quick phone question to consult and see. (5) Poisoning by selective serotonin reuptake inhibitor resolved Impression: resolved. no seizures. Qualifiers: Encounter type: sequela
[2019-04-05] MEDS: SODIUM CHLORIDE FLUSH 0.9% 10 ML SYRINGE IVP SCH ×3 (02:17→18:20)
[2019-04-05] MEDS: SODIUM CHLORIDE 0.9% 1,000 ML IV SCH (03:00)
[2019-04-05] MEDS: ENOXAPARIN 40 MG/0.4 ML SYRINGE SUBQ SCH (09:50)
--- NOTE | 2019-04-05 10:20 | PROVIDER PROGRESS NOTE ---
Subjective - Prog Note Date Prog Note Date: 04/05/19 Prog Note Time: 10:20 - Subjective Subjective: remorseful. tearful with daughter. will do to "whatever it takes to get better". Leg strength better and better. Less unsteady on feet. Still forgetful and repetitive questions. Current Medications - Current Medications Current Medications: Active Medications Ibuprofen (Motrin) 400 mg PO Q6HR PRN PRN Reason: PAIN Last Admin: 04/04/19 21:05 Dose: 400 mg Lorazepam (Ativan Inj (Vial)) 1 mg IVP Q2H PRN PRN Reason: Agitation Last Admin: 04/03/19 07:56 Dose: 1 mg Sodium Chloride (Normal Saline Flush 0.9%) 10 ml IVP 0100,0900,1700 [facility] Last Admin: 04/05/19 09:16 Dose: Not Given Sodium Chloride (Normal Saline Flush 0.9%) 10 ml IVP PRN PRN PRN Reason: NEEDED PER PROVIDER ORDERS Last Admin: 04/02/19 06:02 Dose: 10 ml Divalproex Sodium [Depakote] 750 mg PO BID 11/20/15 Escitalopram [Lexapro] 20 mg PO DAILY 11/20/15 Levothyroxine [Synthroid] 200 mcg PO QDAC 11/20/15 Gabapentin 600 mg PO BID 03/30/16 buPROPion [Wellbutrin Sr] 150 mg PO BID 04/01/19 Objective - Vital Signs/Intake & Output Reviewed Vital Signs: Yes Vital Signs: Vital Signs x48h Temp Pulse Resp BP BP Pulse Ox 04/05/19 07:45 37.4 C 51 L 16 140/78 H 93 04/05/19 04:47 37.7 C H 54 L 16 125/73 93 Intake & Output: Intake & Output 04/02/19 04/03/19 04/04/19 04/05/19 23:59 23:59 23:59 23:59 Intake Total 3849.583 3901.249 3458.500 1459.5 Output Total 1780 1800 5170 725 Balance 2069.583 2101.249 -1711.500 734.5 - Objective General Appearance: positive: No acute distress, Alert Eyes Bilateral: positive: PERRL (dysconjugate gaze disappeared yesterday), EOMI ENT: positive: Pharynx nml Neck: positive: No JVD. negative: Stiff neck, Carotid bruit Respiratory: positive: Chest non-tender. negative: Wheezes, Rales, Rhonchi Cardiovascular: positive: Regular rate & rhythm. negative: Systolic murmur, Gallop/S4 Abdomen: positive: Non-tender, No organomegaly, Nml bowel sounds, No distention Skin: positive: Warm, Dry Extremities: positive: Full ROM, No pedal edema Neurologic/Psychiatric: positive: CN's nml (2-12), Disoriented to time, Weaknes s, Other (mumbling has stopped since 04/04). 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 After extubation, she was with mumbling, slurred speech. Hallucinating.Myoclonic jerking. Next day less mumbling and occ appropriate words. Not always aware of where she is. 04/04 much more appropriate with speech but still disoriented for the most part. Occasionally does recognize where she is and asks how long she will be here. Asked the same questions over and over. The myoclonic jerking had stopped by 04/04. Still with occasional hallucination. Today speech is normal. Remorseful. Still forgetful. Anoxic brain injury vs. sequelae of drug effect Plan: Physical therapy has noted an improvement from 04/03 to 04/04 but doesn't think she will be able to participate in full ongoing neurorehab at an inpatient fac ility. So she recommends Rehab at SNF level to allow the patient to recover enough to then to go more intensive Neuro rehab. From there she will need inpatient psych depending on [facility]. Then from there plan is another longer term stay with alcohol rehab. She's looking at weeks if not months of rehab down the road. (2) Acute respiratory failure with hypoxia Impression: resolved. patient extubated yesterday afternoon. currently minimal O2 need. (3) Suicide attempt by multiple drug overdose Impression: she is hemodynamically stable with less and less fear of drug effect now that it's been >72 hours, but she is still with cognitive deficits and myoclonic jerks. She presented as encephalopathy with acute respiratory failure and hypoxia needing ventilator suppport. Transferred to [facility] Surg status from ICU 04/02. Qualifiers: Encounter type: sequela Qualified Code(s): T50.902S - Poisoning by unspecified drugs, medicaments and biological substances, intentional self-harm, sequela (4) Valproic acid toxicity resolved Impression: resolved. Some tremors as residual, pupils now can accomodate and dilate. She has new disconjugate left gaze 04/03. CT of head was normal and no herniation. She may need neuro consult. Will call for quick phone question to consult and see. (5) Poisoning by selective serotonin reuptake inhibitor resolved Impression: resolved. no seizures. Qualifiers: Encounter type: sequela
[2019-04-05] MEDS: IBUPROFEN 400 MG TABLET PO PRN (19:35)
[2019-04-05] MEDS: SODIUM CHLORIDE FLUSH 0.9% 10 ML SYRINGE IVP PRN ×2 (19:36→22:24)
[2019-04-05] MEDS: LORazepam 2 MG/ML VIAL IVP PRN ×2 (19:37→22:23)
[2019-04-06] MEDS: SODIUM CHLORIDE FLUSH 0.9% 10 ML SYRINGE IVP SCH ×3 (00:10→16:15)
[2019-04-06] MEDS: traZODone 50 MG TABLET PO SCH ×2 (00:38→20:52)
[2019-04-06] MEDS: LORazepam 2 MG/ML VIAL IVP PRN ×3 (00:42→17:54)
--- NOTE | 2019-04-06 08:17 | PROVIDER PROGRESS NOTE ---
Subjective - Prog Note Date Prog Note Date: 04/06/19 Prog Note Time: 08:15 - Subjective Subjective: no new events. she is asking to resume her thyroid and some of her psych med. Current Medications - Current Medications Current Medications: Active Medications Ibuprofen (Motrin) 400 mg PO Q6HR PRN PRN Reason: PAIN Last Admin: 04/05/19 19:35 Dose: 400 mg Lorazepam (Ativan Inj (Vial)) 1 mg IVP Q2H PRN PRN Reason: Agitation Last Admin: 04/06/19 00:42 Dose: 1 mg Polyethylene Glycol (Miralax) 17 gm PO DAILY LO Sodium Chloride (Normal Saline Flush 0.9%) 10 ml IVP 0100,0900,1700 [facility] Last Admin: 04/06/19 00:10 Dose: 10 ml Sodium Chloride (Normal Saline Flush 0.9%) 10 ml IVP PRN PRN PRN Reason: NEEDED PER PROVIDER ORDERS Last Admin: 04/05/19 22:24 Dose: 10 ml Trazodone HCl (Desyrel) 50 mg PO QPM LO Last Admin: 04/06/19 00:38 Dose: 50 mg Divalproex Sodium [Depakote] 750 mg PO BID 11/20/15 Escitalopram [Lexapro] 20 mg PO DAILY 11/20/15 Levothyroxine [Synthroid] 200 mcg PO QDAC 11/20/15 Gabapentin 600 mg PO BID 03/30/16 buPROPion [Wellbutrin Sr] 150 mg PO BID 04/01/19 Objective - Vital Signs/Intake & Output Reviewed Vital Signs: Yes Vital Signs: Vital Signs x48h Temp Pulse Resp BP Pulse Ox 04/06/19 04:00 36.6 C 54 L 16 126/68 94 Intake & Output: Intake & Output 04/03/19 04/04/19 04/05/19 04/06/19 23:59 23:59 23:59 23:59 Intake Total 3901.249 3458.500 4179.5 120 Output Total 1800 5170 1075 Balance 2101.249 -8792.555 6388.5 120 - Objective General Appearance: positive: No acute distress, Alert Eyes Bilateral: positive: PERRL, EOMI ENT: positive: Pharynx nml Neck: positive: No JVD Respiratory: negative: Chest non-tender, Wheezes, Rales, Rhonchi Cardiovascular: positive: Regular rate & rhythm. negative: Gallop/S4, Friction rub Abdomen: positive: Non-tender, No organomegaly, Nml bowel sounds, No distention Skin: positive: Warm, Dry Extremities: positive: Full ROM, No pedal edema Neurologic/Psychiatric: positive: Oriented x3, CN's nml (2-12), Motor nml - Lab Results Fish Bones: 04/04/19 04:35 04/03/19 04:40 ABX Reporting Has patient been on IV antibiotics over the past 48 hours?: No Assessment/Plan - Problem List (1) Depressive disorder Impression: resume SSRI and wellbutrin. (2) Hypothyroid Impression: resume synthroid Qualifiers: Hypothyroidism type: unspecified Qualified Code(s): E03.9 - Hypothyroidism, unspecified (3) Cognitive and neurobehavioral dysfunction following brain injury Impression: Before extubation, pupils fixed and dilated with no babinski. After extubation, she was with mumbling, slurred speech. Hallucinating.Myoclonic jerking. Next day less mumbling and occ appropriate words. Not always aware of where she is. 04/04 much more appropriate with speech but still disoriented for the most part. Occasionally does recognize where she is and asks how long she will be here. Asked the same questions over and over. The myoclonic jerking had stopped by 04/04. Still with occasional hallucination. By 04/05 speech is normal. Remorseful. Still forgetful. Anoxic brain injury vs. sequelae of drug effect Plan: Physical therapy has noted an improvement from 04/03 to 04/04 but doesn't think she will be able to participate in full ongoing neurorehab at an inpatient facility. So she recommends Rehab at SNF level to allow the patient to recover enough to then to go more intensive Neuro rehab. From there she will need inpatient psych depending on [facility]. Then from there plan is another longer term stay with alcohol rehab. She's looking at weeks if not months of rehab down the road. We are awaiting insurance authorization (4) Acute respiratory failure with hypoxia Impression: resolved. patient extubated yesterday afternoon. currently minimal O2 need. (5) Suicide attempt by multiple drug overdose Impression: she is hemodynamically stable with less and less fear of drug effect now that it's been >72 hours, but she is still with cognitive deficits and myoclonic jerks. She presented as encephalopathy with acute respiratory failure and hypoxia needing ventilator suppport. Transferred to [facility] Surg status from ICU 04/02. Qualifiers: Encounter type: sequela Qualified Code(s): T50.902S - Poisoning by unspecified drugs, medicaments and biological substances, intentional self-harm, sequela (6) Valproic acid toxicity resolved Impression: resolved. Some tremors as residual, pupils now can accomodate and dilate. She has new disconjugate left gaze 04/03. CT of head was normal and no herniation. She may need neuro consult. Will call for quick phone question to consult and see. (7) Poisoning by selective serotonin reuptake inhibitor resolved Impression: resolved. no seizures. Qualifiers: Encounter type: sequela
[2019-04-06] MEDS: POLYETHYLENE GLYCOL 3350 17 GM PACKET PO SCH (09:26)
[2019-04-06] MEDS: LEVOTHYROXINE 100 MCG TABLET PO SCH (09:26)
[2019-04-06] MEDS: ESCITALOPRAM 10 MG TABLET PO SCH (09:26)
[2019-04-06] MEDS: GABAPENTIN 100 MG CAPSULE PO SCH ×2 (09:26→20:52)
[2019-04-06] MEDS: buPROPion SR 150 MG TABLET PO SCH ×2 (09:26→20:52)
[2019-04-06] MEDS: SODIUM CHLORIDE FLUSH 0.9% 10 ML SYRINGE IVP PRN ×2 (11:24→17:55)
[2019-04-06] MEDS ORDERED: traZODone 50 MG TABLET PO SCH (21:00)
[2019-04-07] MEDS: SODIUM CHLORIDE FLUSH 0.9% 10 ML SYRINGE IVP SCH ×3 (00:21→16:50)
[2019-04-07] MEDS: LEVOTHYROXINE 100 MCG TABLET PO SCH (06:43)
[2019-04-07] MEDS: POLYETHYLENE GLYCOL 3350 17 GM PACKET PO SCH (07:39)
[2019-04-07] MEDS: buPROPion SR 150 MG TABLET PO SCH ×2 (09:03→21:21)
[2019-04-07] MEDS: GABAPENTIN 100 MG CAPSULE PO SCH ×2 (09:03→21:21)
[2019-04-07] MEDS: ESCITALOPRAM 10 MG TABLET PO SCH (09:04)
--- NOTE | 2019-04-07 11:30 | PROVIDER PROGRESS NOTE ---
Subjective - Prog Note Date Prog Note Date: 04/07/19 Prog Note Time: 11:30 - Subjective Pt reports feeling: Improved Subjective: no new complaints. Current Medications - Current Medications Current Medications: Active Medications Bupropion HCl (Wellbutrin Sr) 150 mg PO BID [facility] Last Admin: 04/07/19 09:03 Dose: 150 mg Escitalopram Oxalate (Lexapro) 20 mg PO DAILY [facility] Last Admin: 04/07/19 09:04 Dose: 20 mg Gabapentin (Neurontin) 100 mg PO BID [facility] Last Admin: 04/07/19 09:03 Dose: 100 mg Ibuprofen (Motrin) 400 mg PO Q6HR PRN PRN Reason: PAIN Last Admin: 04/05/19 19:35 Dose: 400 mg Levothyroxine Sodium (Synthroid) 200 mcg PO QDAC [facility] Last Admin: 04/07/19 06:43 Dose: 200 mcg Lorazepam (Ativan Inj (Vial)) 1 mg IVP Q2H PRN PRN Reason: Agitation Last Admin: 04/06/19 17:54 Dose: 1 mg Polyethylene Glycol (Miralax) 17 gm PO DAILY [facility] Last Admin: 04/07/19 07:39 Dose: Not Given Sodium Chloride (Normal Saline Flush 0.9%) 10 ml IVP 0100,0900,1700 [facility] Last Admin: 04/07/19 09:04 Dose: 10 ml Sodium Chloride (Normal Saline Flush 0.9%) 10 ml IVP PRN PRN PRN Reason: NEEDED PER PROVIDER ORDERS Last Admin: 04/06/19 17:55 Dose: 10 ml Trazodone HCl (Desyrel) 50 mg PO QPM [facility] Last Admin: 04/06/19 20:52 Dose: 50 mg Divalproex Sodium [Depakote] 750 mg PO BID 11/20/15 Escitalopram [Lexapro] 20 mg PO DAILY 11/20/15 Levothyroxine [Synthroid] 200 mcg PO QDAC 11/20/15 Gabapentin 600 mg PO BID 03/30/16 buPROPion [Wellbutrin Sr] 150 mg PO BID 04/01/19 Objective - Vital Signs/Intake & Output Reviewed Vital Signs: Yes Vital Signs: Vital Signs x48h Temp Pulse Resp BP BP Pulse Ox 04/07/19 11:15 36.9 C 56 L 18 131/68 H 93 04/07/19 07:32 36.7 C 48 L 18 130/70 93 04/07/19 04:56 36.6 C 46 L 18 119/70 94 Intake & Output: Intake & Output 04/04/19 04/05/19 04/06/19 04/07/19 23:59 23:59 23:59 23:59 Intake Total 3458.500 4179.5 1846 1240 Output Total 5170 1075 Balance -7623.958 3609.5 1846 1240 - Objective General Appearance: positive: No acute distress, Alert Eyes Bilateral: positive: PERRL, EOMI ENT: positive: Pharynx nml Neck: positive: No JVD. negative: Stiff neck Respiratory: positive: Chest non-tender. negative: Wheezes, Rales, Rhonchi Abdomen: positive: Non-tender, No organomegaly, Nml bowel sounds, No distention Skin: positive: Warm, Dry Extremities: positive: Full ROM, No pedal edema Neurologic/Psychiatric: positive: Oriented x3, CN's nml (2-12), Motor nml - Lab Results Fish Bones: 04/04/19 04:35 04/03/19 04:40 Assessment/Plan - Problem List (1) Depressive disorder Impression: resume SSRI and wellbutrin. I have resumed here gabapentin but at 100 mg tid instead of 600 mg tid to avoid sedation. She can be up trended as time goes on to her usual 600 mg tid. (2) Hypothyroid Impression: resume synthroid 04/06 Qualifiers: Hypothyroidism type: unspecified Qualified Code(s): E03.9 - Hypothyroidism, unspecified (3) Cognitive and neurobehavioral dysfunction following brain injury Impression: Before extubation, pupils fixed and dilated with no babinski. After extubation, she was with mumbling, slurred speech. Hallucinating.Myoclonic jerking. Next day less mumbling and occ appropriate words. Not always aware of where she is. 04/04 much more appropriate with speech but still disoriented for the most part. Occasionally does recognize where she is and asks how long she will be here. Asked the same questions over and over. The myoclonic jerking had stopped by 04/04. Still with occasional hallucination. By 04/05 speech is normal. Remorseful. Still forgetful. By today walking in halls. eating. with exception of occ poor memory back to baseline. Anoxic brain injury vs. sequelae of drug effect Plan: Physical therapy has noted an improvement from 04/03 to 04/04 but doesn't think she will be able to participate in full ongoing neurorehab at an inpatient facility. So she recommends Rehab at SNF level to allow the patient to recover enough to then to go more intensive Neuro rehab. From there she will need inpatient psych depending on [facility]. Today she is doing so well, recommendation is to be evaluated for voluntary inpt psych for dc now. Then from there plan is another longer term stay with alcohol rehab. She's looking at weeks if not months of rehab down the road. We are awaiting insurance authorization (4) Acute respiratory failure with hypoxia Impression: resolved. patient extubated yesterday afternoon. currently minimal O2 need. (5) Suicide attempt by multiple drug overdose Impression: she is hemodynamically stable with less and less fear of drug effect now that it's been >72 hours, but she is still with cognitive deficits and myoclonic jerks. She presented as encephalopathy with acute respiratory failure and hypoxia needing ventilator suppport. Transferred to Med Surg status from ICU 04/02. Qualifiers: Encounter type: sequela Qualified Code(s): T50.902S - Poisoning by unspecified drugs, medicaments and biological substances, intentional self-harm, sequela (6) Valproic acid toxicity resolved Impression: resolved. Some tremors as residual, pupils now can accomodate and dilate. She has new disconjugate left gaze 04/03. CT of head was normal and no herniation. She may need neuro consult. Will call for quick phone question to consult and see. (7) Poisoning by selective serotonin reuptake inhibitor resolved Impression: resolved. no seizures. Qualifiers: Encounter type: sequela
[2019-04-07] MEDS: traZODone 50 MG TABLET PO SCH (21:21)
[2019-04-08] MEDS: LORazepam 2 MG/ML VIAL IVP PRN ×3 (00:15→15:30)
[2019-04-08] MEDS: SODIUM CHLORIDE FLUSH 0.9% 10 ML SYRINGE IVP SCH ×2 (00:45→09:09)
[2019-04-08] MEDS: LEVOTHYROXINE 100 MCG TABLET PO SCH (06:29)
[2019-04-08] MEDS: GABAPENTIN 100 MG CAPSULE PO SCH (09:08)
[2019-04-08] MEDS: buPROPion SR 150 MG TABLET PO SCH (09:08)
[2019-04-08] MEDS: ESCITALOPRAM 10 MG TABLET PO SCH (09:08)
[2019-04-08] MEDS: POLYETHYLENE GLYCOL 3350 17 GM PACKET PO SCH (09:09)
--- NOTE | 2019-04-08 10:03 | XRAY Report ---
Reason: painful MCP right thumb Procedure Date: 04/08/2019 Accession Number: [id number] / [id number] Procedure: XR - Finger(s) RT CPT Code: FULL RESULT: EXAM: RIGHT FIRST DIGIT RADIOGRAPHY EXAM DATE: 04/08/2019 09:00 AM. CLINICAL HISTORY: Painful MCP right thumb. COMPARISON: None. TECHNIQUE: 3 views. FINDINGS: Bones: Normal. No fracture or bone lesion. Joints: Minimal degenerative changes at the first metacarpal phalangeal joint. No subluxation. Soft Tissues: Normal. No soft tissue swelling. IMPRESSION: Minimal degenerative changes. RADIA
--- NOTE | 2019-04-08 13:51 | Discharge Plan ---
Discharge Plan Problem Reviewed?: Yes Disposition: [facility] H[facility]/Unit DC/Xfer Condition: Stable Diet: Regular Activity Restrictions: Activity as Tolerated Shower Restrictions: No Driving Restrictions: No Health Concerns: You were admitted to the hospital because you were found unconscious in your room. You had just been admitted to a residential facility that day after completing a drug and alcohol rehab program for 30 days.. When you were brought to the hospital your pupils were fixed and dilated, you were not able to breathe on your own. You were suffering the toxicity effects of valproic acid overdose as well as Wellbutrin overdose and SSRI overdose. You are intubated, stabilized, and we watched your blood pressure, heart rhythm and liver enzymes for the next couple of days. You eventually began waking up, your pupils became more responsive, and you were able to follow some commands. As such we extubated you. Plan of Treatment: 1. We imaged your head to make sure that you did not herniate your brain. Valproic acid will cause ammonia level to rise in your blood stream and cause brain swelling. Your brain did well. Initially you had quite a bit of confusion, disorientation, mumbled speech. But you recovered. 2. You underwent Physical therapy and Occupational Therapy evaluation. Initially, after extubation, you were jerking, and had uncontrolled myoclonic movements. You had a disconjugate gaze and your left eyeball was not moving correctly. All of that has resolved. You are now walking normally, with a walker. Eating normally. Speaking normally. And your extraocular movements, your eyeballs, or moving correctly. 3. You underwent enough physical therapy that you are able to graduate from our therapy program. You are now going to be discharged to an inpatient psychiatric facility to treat your major depressive disorder and suicide attempt. We have not resumed your valproic acid. We did resume your SSRI and Wellbutrin. We did resume your gabapentin at a much lower dose. Since you have been without gabapentin for a while, resuming gabapentin at such a large dose can cause excessive sedation and change in mental status. As such we reduced her dose to 100 mg twice a day from 600 mg twice a day. You and your providers can slowly increase it back to the dose that is therapeutic for you. 4. After the inpatient psychiatric evaluation and treatment, you will be a candidate for alcohol rehab again. 5. While here you did complain of some right thumb pain. We did an x-ray and there is minimal arthritis. You most likely have tendinitis at the insertion of the thumb joint and I would recommend to use topical lidocaine and topical diclofenac cream mixed together twice a day on the thumb. Care Goals: 1. To regain any function you may have lost 2. To stay clean and sober for the rest of your life Assessment: Patient expresses understanding and fervently wishes to accomplish her goals.Patient expresses understanding and fervently wishes to accomplish her goals. No Smoking: If you smoke, Please STOP! Call for help. Follow-up with: Tatiana Wiggins ARNP [Primary Care Provider] -
--- NOTE | 2019-04-08 14:05 | DISCHARGE SUMMARY ---
"Discharge Summary Admit Date: 04/01/19 Discharge Date: 04/08/19 Discharging Provider: Kareen Maki MD Primary Care Provider: BRII Barragan Code Status: Attempt Resuscitation Condition at Discharge: Stable Discharge Disposition: 65 Psych Hosp/Unit DC/Xfer Discharge Facility Name: [facility] - DIAGNOSES Discharge Diagnoses with Status of Each Condition: 1. Acute respiratory failure with hypoxia, resolved 2. Suicide attempt by multiple drug overdose, resolved 3. Valproic acid toxicity, resolved 4. Poisoning by selective serotonin reuptake inhibitor, resolved 5. Hypothyroidism 6. Cognitive and neurobehavioral dysfunction following brain injury 7. Right thumb pain 8. Alcohol abuse 9. Bipolar disorder - HPI History of Present Illness: She is a middle-aged white female who has bipolar disorder. She is on Depakote, Lexapro, Wellbutrin. This will be her third suicide attempt. She also has alcohol abuse. No withdrawal or seizures but is been seen in the emergency room for falls, and a subdural hematoma June 2017. A previous suicide attempt in December 2015 was followed by an inpatient rehab until January 2016. She has been clean and sober since that time and employed at [employer]. For some unclear reason she moved out from her apartment, moved in with other roommates and went on a 4-day drinking binge. She has lost her job. Went to an inpatient rehab facility. From the inpatient rehab facility she was discharged to [facility] in [place]. She broke her contract immediately drinking that day. As such she was asked to leave the facility. That night she took an overdose of all of her medications. In an admit estimated 144 tablets of valproic acid. Because of severe respiratory depression in the ambulance while on the way to the hospital, she was intubated in the field. Admission chest x-ray showed the tube in place. Low lung volumes with probable atelectasis. Temperature was 36.2, blood pressure 71/43, respirations 18, 96% on ventilator with a pulse of 73. Her laboratory study shows an acutely elevated creatinine of 1.5. Liver enzymes were normal. Ammonia level was elevated at 71.7. TSH 0.09. White cell count low at 4.6. Anemia of 10.5 g of hemoglobin with an MCV of 92. - CONSULTS | PROCEDURES Procedures: 1. Chest x-ray on admission showing low lung volumes, probable atelectasis at the bases, and an ET tube in place. 2. Chest x-ray #2 showed ET tube in place. No infiltrates. 3. Head CT was done for valproic acid toxicity and there is no herniation found. 4. Right thumb x-ray done because of pain showed minimal degenerative changes, no fractures, no soft tissue swelling. - HOSPITAL COURSE Hospital Course: The patient was admitted to the ICU. She was noted to be completely dependent on the ventilator, and it fixed and dilated pupils with Babinski's it were equivocal. There is no response to deep sternal rub. This was hours after vecuronium had already been stopped, and the patient was not sedated. It took her over 24 hours to start opening her eyes and responding to voice. She was eventually extubated. In the initial postop extubation. She had myoclonic jerking movements, mumbling speech, hallucinations. A disconjugate left eye gaze. She gradually recovered, and went back to baseline. Her significant neurological and cognitive deficits after probable anoxia, resolved for the most part. She is alert to person place and time. Knows why she is here. She is remorseful about her suicide attempt. She worked with physical therapy on a daily basis. Physical therapy initially felt that she would be a candidate to be transferred to skilled rehab facility. However, we had avoidable days as we waited on insurance authorization. In those 4 days the patient recovered quite dramatically from a physical therapy and occupational therapy perspective. As such the patient will be transferred to an inpatient psychiatric unit. From there she would like to go to an inpatient alcohol rehab facility. She is been complaining of right thumb pain. A film was done and no fractures and no arthritis at severe. Nevertheless she is some tenderness tendinitis at the lateral insertion site. I would recommend [id number] lighted cane cream with diclofenac cream twice a day. Her antidepressants were resumed except for valproic acid. I did resume gabapentin but at a lower dose and she had had it for a while. From 600 mg p.o. twice daily I did reduce to to 100 mg p.o. twice daily. When she returns to her inpatient psychiatric facility or provider, her medications can be adjusted again. Greater than 30 minutes was spent correlating discharge. The patient will be transferred to [facility]. - ALLERGIES Allergies/Adverse Reactions: Allergies Allergy/AdvReac Type Severity Reaction Status Date / Time No Known Drug Allergies Allergy Verified 02/23/19 15:09 - MEDICATIONS Home Medications: Ambulatory Orders Medication Instructions Recorded Confirmed Escitalopram [Lexapro] 20 mg PO DAILY 11/20/15 04/01/19 Levothyroxine [Synthroid] 200 mcg PO QDAC 11/20/15 04/01/19 buPROPion [Wellbutrin Sr] 150 mg PO BID 04/01/19 04/01/19 Gabapentin [Neurontin] 100 mg PO BID capsule 04/08/19 traZODone [Desyrel] 50 mg PO QPM tablet 04/08/19 - LABS Result Diagrams: 04/04/19 04:35 04/03/19 04:40"
[2019-04-08 15:12] VITALS: BP 107/50
== END 2019-04-08 16:00 | DRG 917 ==
LOC: EDUNIT# → ED 08:21 → ICU 09:31 → MS2 04-03 03:48
PROVIDERS: ADMIT Specialist; ATTEND Specialist
DX: T42.6X2A Poisoning by other antiepileptic and sedative-hypnotic drugs, intentional self-harm, initial encounter (principal); J96.01 Acute respiratory failure with hypoxia; G92 Toxic encephalopathy; R44.3 Hallucinations, unspecified; G25.3 Myoclonus; R26.0 Ataxic gait; F91.8 Other conduct disorders; T43.222A Poisoning by selective serotonin reuptake inhibitors, intentional self-harm, initial encounter; T43.292A Poisoning by other antidepressants, intentional self-harm, initial encounter; Y92.193 Bedroom in other specified residential institution as the place of occurrence of the external cause; F10.10 Alcohol abuse, uncomplicated; F17.210 Nicotine dependence, cigarettes, uncomplicated; E03.9 Hypothyroidism, unspecified; F31.9 Bipolar disorder, unspecified; D64.9 Anemia, unspecified; M48.02 Spinal stenosis, cervical region; R20.2 Paresthesia of skin; M19.041 Primary osteoarthritis, right hand; M77.8 Other enthesopathies, not elsewhere classified; Z87.820 Personal history of traumatic brain injury; Z98.84 Bariatric surgery status
CPT/HCPCS: 36415; 36600; 51702; 70450; 71045; 73140; 80048; 80053; 80164; 80306; 80307; 80320; 80329; 81003; 81025; 82040; 82140; 82550; 82803; 83690; 83735; 84100; 84443; 85025; 87150; 93005; 94002; 94770; 96125; 96365; 96375; 97116; 97161; 97166; 97530; 99284; 99291; A9270; J1650; J2060; J7040; 81001; 87086

== ENCOUNTER 2019-04-19 10:03 | Outpatient (CLI) | payer BC | END 2019-04-19 10:04 | disposition critical access hospital (66) | LOC: EMS 10:03 | PROVIDERS: ATTEND Surgery | DX: R07.9 Chest pain, unspecified (principal); R06.02 Shortness of breath | CPT/HCPCS: A0425; A0429 ==

== ENCOUNTER 2019-04-19 10:22 | Emergency (ER) | payer BC ==
--- NOTE | 2019-04-19 11:20 | ED Physician Documentation ---
History of Present Illness - Stated complaint Stated Complaint: PANIC ATTACK - Chief complaint Chief Complaint: General - History obtained from History obtained from: Patient - History of Present Illness Timing: How many hours ago (5) Pain level max: 4 Pain level now: 0 Improved by: nothing Worsened by: nothing - Additonal information Additional information: patient states that she is living in her car. States had etoh this am at about 0400. around 0600 started feeling chest pain and trouble breathing felt like she could not catch her breath and was hyperventilating. States lasted about an hour. now feels normal. Is approx 2 weeks s/p medication overdose in suicide attempt. States living in her car until her house is ready in 1-2 weeks. Not suicidal now. Review of Systems Ten Systems: 10 systems reviewed and negative Constitutional: denies: Fever, Chills GI: denies: Vomiting Skin: denies: Rash Musculoskeletal: denies: Neck pain, Back pain Neurologic: denies: Headache PD PAST MEDICAL HISTORY - Past Medical History Cardiovascular: None Respiratory: None Neuro: Migraines, Seizure disorder Endocrine/Autoimmune: HyPOthyroidism GI: None CARDIOVASCULAR TECHNICIAN: None : None HEENT: None Psych: Depression, Bipolar disorder, Other Musculoskeletal: Other Derm: None - Past Surgical History Past Surgical History: Yes General: Cholecystectomy, Gastric surgery, Other Ortho: Hip replacement, Knee replacement, Shoulder arthroplasty, Carpal Tunnel surgery /CARDIOVASCULAR TECHNICIAN: Hysterectomy, Breast reduction HEENT: Tonsil/Adenoidectomy - Present Medications Home Medications: Ambulatory Orders Medication Instructions Recorded Confirmed Escitalopram [Lexapro] 20 mg PO DAILY 11/20/15 04/01/19 Levothyroxine [Synthroid] 200 mcg PO QDAC 11/20/15 04/01/19 buPROPion [Wellbutrin Sr] 150 mg PO BID 04/01/19 04/01/19 ARIPiprazole [Abilify] 5 mg PO 04/19/19 Disulfiram [Antabuse] 250 mg PO 04/19/19 Esomeprazole Magnesium [Nexium] 20 mg PO DAILY #14 capsule. 04/19/19 Gabapentin [Neurontin] 300 mg PO BID 04/19/19 Naltrexone HCl 50 mg PO 04/19/19 hydrOXYzine pamoate [Hydroxyzine 50 mg PO 04/19/19 Pamoate] traZODone [Desyrel] 100 mg PO QPM 04/19/19 04/19/19 - Allergies Allergies/Adverse Reactions: Allergies Allergy/AdvReac Type Severity Reaction Status Date / Time No Known Drug Allergies Allergy Verified 04/19/19 10:34 - Social History Does the pt smoke?: Yes Smoking Status: Current every day smoker Does the pt drink ETOH?: Yes Does the pt have substance abuse?: No - Immunizations Immunizations are current?: Yes - POLST Patient has POLST: No PD ED PE NORMAL - Vitals Vital signs reviewed: Yes - General General: Alert and oriented X 3, No acute distress, Well developed/nourished - HEENT HEENT: PERRL, Moist mucous membranes - Neck Neck: Supple, no meningeal sign - Cardiac Cardiac: RRR, Strong equal pulses - Respiratory Respiratory: No respiratory distress, Clear bilaterally - Abdomen Abdomen: Soft, Non tender, Non distended - Derm Derm: Warm and dry, No rash - Extremities Extremities: No deformity, No edema - Neuro Neuro: Alert and oriented X 3 - Psych Psych: Normal mood, Normal affect Results - Vitals Vitals: Vital Signs - 24 hr 04/19/19 04/19/19 04/19/19 10:24 11:21 12:15 Temperature 36.4 C L Heart Rate 58 L 102 H 101 H Respiratory 18 18 22 Rate Blood Pressure 125/52 L 98/76 108/56 L O2 Saturation 96 95 04/19/19 04/19/19 04/19/19 12:30 13:21 13:35 Temperature Heart Rate 93 91 97 Respiratory 18 21 21 Rate Blood Pressure 142/78 H 136/62 H 124/57 L O2 Saturation 96 93 95 04/19/19 04/19/19 14:45 14:46 Temperature 37.2 C Heart Rate 87 68 Respiratory 18 16 Rate Blood Pressure 125/70 127/57 L O2 Saturation 92 95 Oxygen O2 Source Room air - EKG (time done) 1103 Rate: Rate (enter#) (101) Rhythm: Sinus tachycardia [place]: Normal Intervals: Normal CT QRS: Normal Ischemia: Other (minimal ST depression V5-6) Compare to prior EKG: Changed from prior EKG - Labs Labs: Laboratory Tests 04/19/19 04/19/19 04/19/19 10:31 10:31 11:12 WBC 16.0 H RBC 4.21 Hgb 12.5 Hct 38.8 MCV 92.2 MCH 29.7 MCHC 32.2 RDW 15.1 H Plt Count 437 MPV 9.7 Neut # (Auto) 13.2 H Lymph # (Auto) 1.6 [place] # (Auto) 0.8 Eos # (Auto) 0.1 Baso # (Auto) 0.1 Absolute Nucleated RBC 0.00 Nucleated RBC % 0.0 Sodium Potassium Chloride Carbon Dioxide Anion Gap BUN Creatinine Estimated GFR (MDRD) Glucose Calcium Total Bilirubin AST ALT Alkaline Phosphatase Troponin I High Sens Total Protein Albumin Globulin Albumin/Globulin Ratio Lipase Urine Color YELLOW Urine Clarity CLEAR Urine pH 5.0 Ur Specific [place] 1.010 Urine Protein NEGATIVE Urine Glucose (UA) NEGATIVE Urine Ketones TRACE Urine Occult Blood NEGATIVE Urine Nitrite NEGATIVE Urine Bilirubin NEGATIVE Urine Urobilinogen 0.2 (NORMAL) Ur Leukocyte Esterase NEGATIVE Ur Microscopic Review NOT INDICATED Urine Culture Comments NOT INDICATED Urine Opiates Screen NEGATIVE Ur Oxycodone Screen NEGATIVE Urine Methadone Screen NEGATIVE Ur Propoxyphene Screen NEGATIVE Ur Barbiturates Screen NEGATIVE Ur Tricyclics Screen NEGATIVE Ur Phencyclidine Scrn NEGATIVE Ur Amphetamine Screen NEGATIVE U Methamphetamines Scrn NEGATIVE U Benzodiazepines Scrn NEGATIVE Urine Cocaine Screen NEGATIVE U Cannabinoids Screen NEGATIVE Ethyl Alcohol 04/19/19 04/19/19 04/19/19 11:12 11:12 11:12 WBC RBC Hgb Hct MCV MCH MCHC RDW Plt Count MPV Neut # (Auto) Lymph # (Auto) [place] # (Auto) Eos # (Auto) Baso # (Auto) Absolute Nucleated RBC Nucleated RBC % Sodium 140 Potassium 4.3 Chloride 104 Carbon Dioxide 22 Anion Gap 14.0 H BUN 17 Creatinine 0.6 Estimated GFR (MDRD) 102 Glucose 134 H Calcium 9.3 Total Bilirubin 0.2 AST 19 ALT 13 Alkaline Phosphatase 61 Troponin I High Sens 14.2 Total Protein 7.0 Albumin 4.0 Globulin 3.0 Albumin/Globulin Ratio 1.3 Lipase 39 Urine Color Urine Clarity Urine pH Ur Specific [place] Urine Protein Urine Glucose (UA) Urine Ketones Urine Occult Blood Urine Nitrite Urine Bilirubin Urine Urobilinogen Ur Leukocyte Esterase Ur Microscopic Review Urine Culture Comments Urine Opiates Screen Ur Oxycodone Screen Urine Methadone Screen Ur Propoxyphene Screen Ur Barbiturates Screen Ur Tricyclics Screen Ur Phencyclidine Scrn Ur Amphetamine Screen U Methamphetamines Scrn U Benzodiazepines Scrn Urine Cocaine Screen U Cannabinoids Screen Ethyl Alcohol 176.2 - Rads (name of study) Chest x-ray Radiology: Prelim report reviewed, EMP read contemporaneously, See rad report (Normal) PD MEDICAL DECISION MAKING - ED course Complexity details: reviewed results, re-evaluated patient, considered differential, d/w patient ED course: Patient with atypical chest pain. Sounds more consistent with GERD versus gastritis. Likely from her alcoholism. Given Protonix. Negative high- sensitivity troponin. Negative EKG. Negative chest x-ray. Social work consulted and resources given. Patient does not want to go to detox today. She is not suicidal or homicidal. No evidence of pulmonary embolus or acute coronary syndrome. Patient counseled regarding signs and symptoms for which I believe and urgent re-evaluation would be necessary. Patient with good un derstanding of and agreement to plan and is comfortable going home at this time This document was made in part using voice recognition software. While efforts are made to proofread this document, sound alike and grammatical errors may occur. Departure - Departure Disposition: 01 Home, Self Care Clinical Impression: Alcoholic intoxication Qualifiers: Complication of substance-induced condition: uncomplicated Qualified Code(s): F10.920 - Alcohol use, unspecified with intoxication, uncomplicated Chest pain Qualifiers: Chest pain type: unspecified Qualified Code(s): R07.9 - Chest pain, unspecified Condition: Good Instructions: ED Chest Pain Atypical Unkn Cause, ED Alcohol Intoxication Follow-Up: Tatiana Wiggins ARNP [Primary Care Provider] - Within 1 week Prescriptions: Esomeprazole Magnesium [Nexium] 20 mg PO DAILY #14 capsule. Comments: Follow-up with your doctor for further care. Return if you worsen. Use the medications as prescribed. You also need to stop drinking. Discharge Date/Time: 04/19/19 14:46
[2019-04-19 11:23] LABS: BASOPHILS # (AUTO) 0.1 10^3/uL (0.0-0.1); BASOPHILS % (AUTO) 0.6 %; EOSINOPHILS # (AUTO) 0.1 10^3/uL (0.0-0.7); EOSINOPHILS % (AUTO) 0.4 %; HGB - HEMOGLOBIN 12.5 g/dL (12.0-16.0); LYMPHOCYTES # (AUTO) 1.6 10^3/uL (1.5-3.5); LYMPHOCYTES % (AUTO) 10.1 %; MEAN CORPUSCULAR HEMOGLOBIN 29.7 pg (27.0-31.0); MEAN CORPUSCULAR HGB CONC 32.2 g/dL (32.0-36.0); MEAN CORPUSCULAR VOLUME 92.2 fL (81.0-99.0); MEAN PLATELET VOLUME 9.7 fL (7.9-10.8); MONOCYTES # (AUTO) 0.8 10^3/uL (0.0-1.0); MONOCYTES % (AUTO) 5.1 %; NEUTROPHILS # (AUTO) 13.2 10^3/uL (1.5-6.6); NEUTROPHILS % (AUTO) 82.9 %; PLT - PLATELET COUNT 437 10^3/uL (130-450); RED BLOOD COUNT 4.21 10^6/uL (4.20-5.40); RED CELL DISTRIBUTION WIDTH 15.1 % (12.0-15.0)
--- NOTE | 2019-04-19 11:40 | XRAY Report ---
Reason: Chest Pain Procedure Date: 04/19/2019 Accession Number: [id number] / [id number] Procedure: XR - Chest 1 View X-Ray CPT Code: 10590 FULL RESULT: EXAM: CHEST RADIOGRAPHY EXAM DATE: 04/19/2019 11:19 AM. CLINICAL HISTORY: Chest Pain. COMPARISON: CHEST FOR LINE PLACEMENT 04/01/2019 9:29 AM. TECHNIQUE: 1 view. FINDINGS: Lungs/Pleura: No focal opacities evident. No pleural effusion. No pneumothorax. Mediastinum: Within exam limitations, the cardiomediastinal contour is normal. Other: There are no visualized intravenous catheters. IMPRESSION: 1. No acute cardiopulmonary abnormality. 2. There are no visualized intravenous catheters. RADIA
[2019-04-19 12:13] LABS: ALBUMIN/GLOBULIN RATIO 1.3 (1.0-2.2); BILIRUBIN,TOTAL 0.2 mg/dL (0.2-1.0); CALCIUM 9.3 mg/dL (8.5-10.3); CREATININE 0.6 mg/dL (0.4-1.0)
[2019-04-19] MEDS ORDERED: LORazepam 1 MG TABLET PO STA (12:21)
[2019-04-19 12:30] LABS: BILIRUBIN,URINE NEGATIVE (NEGATIVE); CLARITY,URINE CLEAR (CLEAR); GLUCOSE, URINE (UA) NEGATIVE (NEGATIVE); KETONES,URINE (UA) TRACE mg/dL (NEGATIVE); LEUKOCYTE ESTERASE, URINE NEGATIVE (NEGATIVE); NITRITE,URINE NEGATIVE (NEGATIVE); OCCULT BLOOD,URINE NEGATIVE (NEGATIVE); PROTEIN,URINE NEGATIVE (NEGATIVE); UROBILINOGEN,URINE 0.2 (NORMAL) E.U./dL (NORMAL)
[2019-04-19 12:38] LABS: MUDS CUTOFF CONCENTRATIONS CUTOFF CONC BELOW:
[2019-04-19] MEDS ORDERED: SODIUM CHLORIDE 0.9% 1,000 ML IV ONE (12:49)
[2019-04-19] MEDS ORDERED: PANTOPRAZOLE 40 MG VIAL IVP STA (12:49)
[2019-04-19 12:51] LABS: AMPHETAMINE SCREEN,URINE NEGATIVE (NEGATIVE); BENZODIAZEPINES SCREEN, URINE NEGATIVE (NEGATIVE); COCAINE SCREEN URINE NEGATIVE (NEGATIVE); METHADONE SCREEN, URINE NEGATIVE (NEGATIVE); METHAMPHETAMINES SCREEN, URINE NEGATIVE (NEGATIVE); OPIATE SCREEN, URINE NEGATIVE (NEGATIVE); OXYCODONE SCREEN, URINE NEGATIVE (NEGATIVE); PROPOXYPHENE SCREEN, URINE NEGATIVE (NEGATIVE); TRICYCLIC ANTIDEPRESSANT,URINE NEGATIVE (NEGATIVE)
[2019-04-19 14:46] VITALS: BP 127/57
== END 2019-04-19 14:46 | disposition home or self-care (01) ==
LOC: EDUNIT# → ED 10:22
DX: F10.920 Alcohol use, unspecified with intoxication, uncomplicated (principal); R07.9 Chest pain, unspecified; F17.200 Nicotine dependence, unspecified, uncomplicated
CPT/HCPCS: 36415; 71045; 80053; 80320; 81003; 83690; 84484; 85025; 93005; 96361; 96374; 99284; J8499; 80306; 81001; 87086

== ENCOUNTER 2019-04-26 11:24 | Outpatient (CLI) | payer BC, MEDICAID ==
[2019-04-26 18:30] LABS: BASOPHILS % (AUTO) 0.6 %; EOSINOPHILS # (AUTO) 0.2 10^3/uL (0.0-0.7); EOSINOPHILS % (AUTO) 3.1 %; HGB - HEMOGLOBIN 12.2 g/dL (12.0-16.0); LYMPHOCYTES # (AUTO) 1.8 10^3/uL (1.5-3.5); LYMPHOCYTES % (AUTO) 26.9 %; MEAN CORPUSCULAR HEMOGLOBIN 28.6 pg (27.0-31.0); MEAN CORPUSCULAR HGB CONC 30.3 g/dL (32.0-36.0); MEAN CORPUSCULAR VOLUME 94.4 fL (81.0-99.0); MEAN PLATELET VOLUME 10.4 fL (7.9-10.8); MONOCYTES # (AUTO) 0.5 10^3/uL (0.0-1.0); NEUTROPHILS % (AUTO) 60.9 %; PLT - PLATELET COUNT 276 10^3/uL (130-450); RED BLOOD COUNT 4.27 10^6/uL (4.20-5.40); RED CELL DISTRIBUTION WIDTH 15.8 % (12.0-15.0); WHITE BLOOD COUNT 6.5 x10^3/uL (4.8-10.8)
[2019-04-26 18:44] LABS: ALBUMIN 4.1 g/dL (3.2-5.5); ALBUMIN/GLOBULIN RATIO 1.5 (1.0-2.2); ALKALINE PHOSPHATASE 68 IU/L (42-121); ALT ALANINE AMINOTRANSFERASE 13 IU/L (10-60); AST ASPARTATE AMINOTRANSFERASE 19 IU/L (10-42); BILIRUBIN,TOTAL < 0.2 mg/dL (0.2-1.0); BUN - BLOOD UREA NITROGEN 9 mg/dL (6-20); CALCIUM 9.2 mg/dL (8.5-10.3); CARBON DIOXIDE - CO2 29 mmol/L (21-32); CHLORIDE 102 mmol/L (101-111); CREATININE 0.7 mg/dL (0.4-1.0); GFR - MDRD 85 (>89); GLUCOSE 104 mg/dL (70-100); SODIUM 140 mmol/L (135-145); TOTAL PROTEIN 6.9 g/dL (6.7-8.2)
== END 2019-04-26 23:59 ==
LOC: LAB.N 11:24
PROVIDERS: ATTEND Nurse Practitioner Gerontology
DX: E03.9 Hypothyroidism, unspecified (principal); Z79.899 Other long term (current) drug therapy
CPT/HCPCS: 36415; 80053; 84443; 85025

== ENCOUNTER 2019-05-22 09:05 | Outpatient (CLI) | payer MEDICAID ==
--- NOTE | 2019-05-23 08:49 | Mammography Report ---
Reason: ROUTINE MAMMO Procedure Date: 05/22/2019 Accession Number: [id number] / [id number] Procedure: MGN - Screening Mammo Dig Bilat CPT Code: Final Report FULL RESULT: EXAM: Screening Mammo Dig Bilat DATE: 05/22/2019 9:29 AM CLINICAL HISTORY: Screening encounter. History of early menses. Family history of breast cancer in the mother at the age of 72. TECHNIQUE: (B) - Bilateral CC, laterally exaggerated CC, MLO views were obtained. COMPARISON: 05/16/2017 and 05/13/2016. PARENCHYMAL PATTERN: (A) - The breast(s) demonstrate(s) scattered fibroglandular densities. FINDINGS: Stable scattered punctate calcifications are noted, typically benign. There are no suspicious masses, calcifications, or areas of distortion. IMPRESSION: Benign findings. BI-RADS category 2. RECOMMENDATION: (ANNUAL) - Recommend routine annual screening mammography. BI-RADS CATEGORY: (2) - Benign Findings. STANDARD QUALIFYING STATEMENTS: 1. This examination was not reviewed with the aid of Computer-Aided Detection (CAD). 2. A negative or benign imaging report should not preclude biopsy if clinically suspicious findings are present. 3. Dense breasts may obscure an underlying neoplasm. 4. This examination was reviewed without the aid of 3D breast imaging (tomosynthesis).
== END 2019-05-22 09:06 | disposition home or self-care (01) ==
LOC: DI.N 09:05
DX: Z12.31 Encounter for screening mammogram for malignant neoplasm of breast (principal); Z80.3 Family history of malignant neoplasm of breast
CPT/HCPCS: 77067

== ENCOUNTER 2019-05-26 22:54 | Outpatient (CLI) | payer BC, MEDICAID | END 2019-05-26 22:55 | disposition critical access hospital (66) | LOC: EMS 22:54 | PROVIDERS: ATTEND Surgery | DX: S09.90XA Unspecified injury of head, initial encounter (principal); M54.2 Cervicalgia; R07.89 Other chest pain; W18.09XA Striking against other object with subsequent fall, initial encounter; Y93.01 Activity, walking, marching and hiking; Y92.009 Unspecified place in unspecified non-institutional (private) residence as the place of occurrence of the external cause | CPT/HCPCS: A0425; A0427; A0999 ==

== ENCOUNTER 2019-05-26 23:12 | Emergency (ER) | payer MEDICAID ==
--- NOTE | 2019-05-26 23:30 | ED Physician Documentation ---
PD HPI Fall - Stated complaint Stated Complaint: ETOH/GLF - Chief complaint Chief Complaint: Trauma Hd/Nk - History obtained from History obtained from: Patient - History of Present Illness Mechanism of injury: Lost balance Fall distance: Standing position Where injury occurred: A house / apartment Timing - onset: Today (tonight) Injury(ies) location: Head Pain level now: 4 Quality of pain: Pain Associated symptoms: AMS. No: LOC, Neck pain Contributing factors: Intoxicated Recently seen: Other (recent visits include anxiety-related, alcohol-related, as well as intentional overdose that required intubation) - Additional information Additional information: BIBA. patient says she drank alcohol tonight and fell while walking where she is staying (it is an addiction recovery-related facility) due to loss of balance and coordination. does not think she lost consciousness. c/o WALSH. c-spine collar and backboard placed by EMS Review of Systems Eyes: reports: Reviewed and negative Ears: reports: Reviewed and negative Cardiac: reports: Reviewed and negative Respiratory: reports: Reviewed and negative GI: reports: Reviewed and negative : denies: Incontinent Musculoskeletal: denies: Neck pain, Back pain Neurologic: reports: Headache, Head injury. denies: Generalized weakness, Focal weakness, Numbness, Seizure, Confused, Altered mental status, LOC PD PAST MEDICAL HISTORY - Past Medical History Cardiovascular: None Respiratory: None Neuro: Migraines, Seizure disorder Endocrine/Autoimmune: HyPOthyroidism GI: None RADIO FREQUENCY TECHNICIAN: None : None HEENT: None Psych: Depression, Bipolar disorder, Other Musculoskeletal: Other Derm: None - Past Surgical History Past Surgical History: Yes General: Cholecystectomy, Gastric surgery, Other Ortho: Hip replacement, Knee replacement, Shoulder arthroplasty, Carpal Tunnel surgery /RADIO FREQUENCY TECHNICIAN: Hysterectomy, Breast reduction HEENT: Tonsil/Adenoidectomy - Present Medications Home Medications: Ambulatory Orders Medication Instructions Recorded Confirmed Escitalopram [Lexapro] 20 mg PO DAILY 11/20/15 04/01/19 Levothyroxine [Synthroid] 200 mcg PO QDAC 11/20/15 04/01/19 ARIPiprazole [Abilify] 5 mg PO 04/19/19 Disulfiram [Antabuse] 250 mg PO 04/19/19 Gabapentin [Neurontin] 600 mg PO BID 04/19/19 Naltrexone HCl 50 mg PO BID 04/19/19 hydrOXYzine pamoate [Hydroxyzine 50 mg PO TID PRN 04/19/19 Pamoate] Bupropion HCl [Bupropion Xl] 300 mg PO DAILY 05/26/19 05/26/19 - Allergies Allergies/Adverse Reactions: Allergies Allergy/AdvReac Type Severity Reaction Status Date / Time No Known Drug Allergies Allergy Verified 05/28/19 11:15 - Social History Does the pt smoke?: Yes Smoking Status: Current every day smoker Does the pt drink ETOH?: Yes Does the pt have substance abuse?: No - Immunizations Immunizations are current?: Yes - POLST Patient has POLST: No PD ED PE NORMAL - Vitals Vital signs reviewed: Yes - General General: No acute distress, Well developed/nourished, Other (drowsy but awakens to voice. answers quietly but appropriately. poor eye contact) - HEENT HEENT: Atraumatic, PERRL, EOMI, Moist mucous membranes - Neck Neck: Other (mild midline midlevel/lower cervical spine tenderness without step- off) - Cardiac Cardiac: RRR, No murmur - Respiratory Respiratory: No respiratory distress, Clear bilaterally - Abdomen Abdomen: Soft, Non tender - Back Back: No spinal TTP - Derm Derm: Normal color, Warm and dry - Extremities Extremities: No deformity, No tenderness to palpate, Normal ROM s pain - Neuro Neuro: fare register repairer 2-12 intact, No motor deficit, No sensory deficit, Normal speech Results - Vitals Vitals: Oxygen O2 Source Room air - Labs Labs: Laboratory Tests 05/26/19 05/26/19 05/26/19 23:55 23:55 23:55 WBC 16.0 H RBC 4.04 L Hgb 11.7 L Hct 36.9 L MCV 91.3 MCH 29.0 MCHC 31.7 L RDW 14.6 Plt Count 290 MPV 10.6 Neut # (Auto) 13.7 H Lymph # (Auto) 1.2 L [place] # (Auto) 0.9 Eos # (Auto) 0.0 Baso # (Auto) 0.1 Absolute Nucleated RBC 0.00 Nucleated RBC % 0.0 PT 10.9 INR 1.0 APTT 36.2 H Sodium 141 Potassium 3.3 L Chloride 105 Carbon Dioxide 22 Anion Gap 14.0 H BUN 17 Creatinine 0.9 Estimated GFR (MDRD) 64 L Glucose 192 H Calcium 9.1 Total Bilirubin 0.4 AST 18 ALT 15 Alkaline Phosphatase 72 Total Protein 6.7 Albumin 4.0 Globulin 2.7 Albumin/Globulin Ratio 1.5 Lipase 93 H Ethyl Alcohol 51.2 - Rads (name of study) CT head Radiology: Prelim report reviewed, See rad report CT cervical spine Radiology: Prelim report reviewed, See rad report PD MEDICAL DECISION MAKING - ED course Complexity details: reviewed old records, reviewed results, re-evaluated patient, considered differential, d/w patient ED course: collar removed after ct resulted and reexamined (no significant tenderness on reevaluation despite having mild tenderness initially). she was sleepy for much of her stay, but polite and cooperative. she became increasingly awake and alert and was AAOx3 after overnight ED observation. she was in NAD. I discussed the results with her including an unexpected ethanol result (a little over 50; was expecting higher based on alcohol-like odor on breath, amount of alcohol she said she ingested, and her drowsiness early in her stay). she denies co- ingestants and her medication bottles have appropriate amounts in them. she denies SI and is comfortable with discharge home, and she is pleasant and conversant and in NAD at time of disposition. Departure - Departure Disposition: 01 Home, Self Care Clinical Impression: Fall Qualifiers: Encounter type: initial encounter Qualified Code(s): W19.XXXA - Unspecified fall, initial encounter Condition: Good Instructions: ED Fall Uncertain Cause, ED Head Injury Closed Follow-Up: Tatiana Wiggins ARNP [Primary Care Provider] - Discharge Date/Time: 05/27/19 06:56
[2019-05-27 00:08] LABS: BASOPHILS # (AUTO) 0.1 10^3/uL (0.0-0.1); BASOPHILS % (AUTO) 0.4 %; EOSINOPHILS % (AUTO) 0.1 %; HGB - HEMOGLOBIN 11.7 g/dL (12.0-16.0); LYMPHOCYTES # (AUTO) 1.2 10^3/uL (1.5-3.5); LYMPHOCYTES % (AUTO) 7.3 %; MEAN CORPUSCULAR HGB CONC 31.7 g/dL (32.0-36.0); MEAN CORPUSCULAR VOLUME 91.3 fL (81.0-99.0); MEAN PLATELET VOLUME 10.6 fL (7.9-10.8); MONOCYTES # (AUTO) 0.9 10^3/uL (0.0-1.0); MONOCYTES % (AUTO) 5.8 %; NEUTROPHILS # (AUTO) 13.7 10^3/uL (1.5-6.6); NEUTROPHILS % (AUTO) 85.8 %; PLT - PLATELET COUNT 290 10^3/uL (130-450); RED BLOOD COUNT 4.04 10^6/uL (4.20-5.40); RED CELL DISTRIBUTION WIDTH 14.6 % (12.0-15.0)
[2019-05-27 00:12] LABS: PT - PROTHROMBIN TIME 10.9 secs (9.9-12.6)
[2019-05-27 00:18] LABS: ALBUMIN/GLOBULIN RATIO 1.5 (1.0-2.2); BILIRUBIN,TOTAL 0.4 mg/dL (0.2-1.0); CALCIUM 9.1 mg/dL (8.5-10.3); CREATININE 0.9 mg/dL (0.4-1.0); TOTAL PROTEIN 6.7 g/dL (6.7-8.2)
[2019-05-27 00:19] LABS: PARTIAL THROMBOPLASTIN TIME 36.2 secs (24.9-33.3)
--- NOTE | 2019-05-27 00:32 | CT Report ---
Reason: fall, headache Procedure Date: 05/27/2019 Accession Number: [id number] / [id number] Procedure: CT - HEAD WO CPT Code: Final Report FULL RESULT: EXAM: CT HEAD EXAM DATE: 05/27/2019 12:06 AM. CLINICAL HISTORY: Fall, headache. COMPARISON: HEAD W/O 04/01/2019 2:35 PM. TECHNIQUE: Multiaxial CT images were obtained from the foramen magnum to the vertex. Reformats: Sagittal and coronal. IV contrast: None. In accordance with CT protocol optimization, one or more of the following dose reduction techniques were utilized for this exam: automated exposure control, adjustment of mA and/or KV based on patient size, or use of iterative reconstructive technique. FINDINGS: Parenchyma: No intraparenchymal hemorrhage. No evidence of mass, midline shift or CT findings of acute territorial infarction. Otto-white differentiation is distinct. Extraaxial Spaces: No subdural or epidural collections identified. Ventricles: No hydrocephalus Sinuses: Imaged paranasal sinuses, orbits, and mastoids show no significant abnormality. Bones: No evidence of acute fracture or calvarial defect. Other: None. IMPRESSION: No acute intracranial abnormalities. RADIA
--- NOTE | 2019-05-27 00:37 | CT Report ---
Reason: fall, neck pain Procedure Date: 05/27/2019 Accession Number: [id number] / [id number] Procedure: CT - CERVICAL SPINE WO CPT Code: Final Report FULL RESULT: EXAM: CT CERVICAL SPINE WITHOUT CONTRAST DATE: 05/27/2019 12:22 AM. HISTORY: Fall, neck pain. COMPARISONS: HEAD W/O 04/01/2019 2:35 PM. TECHNIQUE: Thin-section axial images were acquired of the cervical spine without contrast. Post-processing: Coronal and sagittal reformats. Other: None. In accordance with CT protocol optimization, one or more of the following dose reduction techniques were utilized for this exam: automated exposure control, adjustment of mA and/or KV based on patient size, or use of iterative reconstructive technique. FINDINGS: Alignment: No scoliosis or spondylolisthesis. Craniovertebral junction: Intact Bones: No fracture or bone lesion. Interspace Levels/Facets: Mild multilevel degenerative disease most notably at C5-C6 and C6-C7. Mild multilevel facet joint arthropathy. Mild right-sided neural foraminal stenosis at C4-C5. Mild bilateral neural foraminal stenosis at C5-C6. Musculature: No fatty atrophy. Other: The paravertebral and prevertebral soft tissues are unremarkable. The lung apices are clear. IMPRESSION: 1. No acute fractures or malalignment. 2. Mild multilevel degenerative disk disease and facet joint arthropathy most notably at C5-C6 and C6-C7. RADIA
[2019-05-27] MEDS ORDERED: NAPROXEN 250 MG TABLET PO STA (02:57)
[2019-05-27 06:51] VITALS: BP 124/73
== END 2019-05-27 06:56 | disposition home or self-care (01) ==
LOC: EDUNIT# → ED 23:12
DX: Z03.89 Encounter for observation for other suspected diseases and conditions ruled out (principal); F17.200 Nicotine dependence, unspecified, uncomplicated
CPT/HCPCS: 36415; 70450; 72125; 80053; 80320; 83690; 85025; 85610; 85730; 99283; 99284; A9270